=== PATIENT | male | born 2005 | race Caucasian/White ===

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

== ENCOUNTER 2023-02-10 21:18 | Emergency (ER) | payer BC, SELFPAY ==
[2023-02-10 21:23] VITALS: BP 166/103; PULSE 80; RESP 20; TEMP 36.6; O2SAT 98; BMI 52.9
--- NOTE | 2023-02-11 02:46 | ED.GENADULT ---
HPI - General Adult General Date Seen: 02/10/23 Chief complaint: Ear/Nose/Throat Problem Stated complaint: pain in cheek/ear Time Seen by Provider: 02/10/23 21:51 History of Present Illness HPI narrative: This is a pleasant 17-year-old male with a past medical history of hypertension, dyslipidemia, elevated BMI, anxiety, presenting to the ER today with pain involving his left ear and left cheek. Symptoms again yesterday and were fairly mild yesterday but it gotten worse today. He notes pain affecting the left side of his face and radiating to his left ear. It tends to be worse when he chews. He does not really have any toothache or any pain inside of his mouth. No swelling of his gums. No sore throat. No trouble swallowing. No fever. He has had a stuffy nose for the past couple of days. No known jaw injury or dental trauma. No history of TMJ. He does not notice any change in his pain while he is eating or any swelling of his face while he eats. No redness or warmth. No fever. Pain started yesterday but got worse throughout the day today, prompting his visit to the ER tonight. Related Data Previous Rx's Medication Instructions Recorded losartan 50 mg tablet 50 mg PO QDAY #90 tabs 10/22/22 Allergies Allergy/AdvReac Type Severity Reaction Status Date / Time No Known Drug Allergies Allergy Verified 12/10/22 13:13 [facility] Medical History Obesity (11/25/12) ?E66.9 - Obesity, unspecified (ICD-10) HTN (hypertension) ?I10 - Essential (primary) hypertension (ICD-10) Morbid obesity with BMI of 50.0-59.9, adult ?E66.01 - Morbid (severe) obesity due to excess calories (ICD-10) ?Z68.43 - Body mass index [BMI] 50.0-59.9, adult (ICD-10) Other dislocation of left patella, sequela ?S83.095S - Other dislocation of left patella, sequela (ICD-10) 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 ?E16.1 - Other hypoglycemia (ICD-10) Hyperlipidemia (12/18/09) ?E78.5 - Hyperlipidemia, unspecified (ICD-10) Hearing disorder ?H91.90 - Unspecified hearing loss, unspecified ear (ICD-10) Elevated blood pressure reading ?R03.0 - Elevated blood-pressure reading, without diagnosis of hypertension (ICD-10) Surgical History S/P left knee arthroscopy (05/13/22) ?Z98.890 - Other specified postprocedural states (ICD-10) History of bilateral tympanoplasty (2010) ?Z98.890 - Other specified postprocedural states (ICD-10) History of tonsillectomy and adenoidectomy ?Z90.89 - Acquired absence of other organs (ICD-10) Family History Paternal Grandfather Diabetes Social History Narrative: Single, lives with father, works at [employer], no kids Does not smoke Does not drink alcohol, no drug use 10 min daily walks on treadmill /or jogs Emigrated at age 2 from [place]. Did receive BC G vaccine as a child. Last trip to [place] 2020 Smoking Status: Never smoker Second hand tobacco smoke exposure: No How often do you have a drink containing alcohol: never How often do you have six or more drinks on one occasion: Never AUDIT-C Alcohol total score: 0 Non-prescribed substance use: denies use Little interest or pleasure in doing things: not at all Feeling down, depressed, or hopeless: not at all Exam Narrative: Exam Narrative: Constitutional: Appears well-developed and well-nourished. Alert. Conversant. Non toxic. HENT: Head: Atraumatic. No depressed skull fracture, Raccoon Eyes, العراقي's sign, or hemotympanum. Face normal. TMs normal Right ear: Mastoid, pinna, canal are normal. There is some cerumen in the canal but I can see a portion of his TM and it appears normal. Left ear: Mastoid, pinnae, external canal are normal. Canal is occluded by dark brown cerumen. This was removed using an ear curette. I am able to visualize his TM it does appear to be brightly erythematous and bulging. Suspicious for otitis media. Nose: Nose normal. Mouth/Throat: Oral mucosa is clear and moist. no trismus. Pharynx normal. Tonsils symmetric. No tonsillar enlargement, erythema, or exudate. No trismus. No TMJ tenderness. No submandibular swelling. Generally good dentition. He does have a couple of feelings in his left maxillary molars but no evidence for any active dental caries. Gums are normal. No signs of dental infection. Submandibular tissues are soft. No trismus. No parotid swelling. No facial erythema. No palpable buccal space abscess. No signs of facial cellulitis Eyes: Conjunctivae normal. EOM normal. Pupils equal, round, and reactive to light. No scleral icterus. Neck: Normal range of motion. Neck supple. No tracheal deviation present. Cardiovascular: Normal rate, regular rhythm. No gallop. No friction rub. No murmur heard. Musculoskeletal: RUE: Normal range of motion. No tenderness. No deformity LUE: Normal range of motion. No tenderness. No deformity RLE: Normal range of motion. No edema. No tenderness. No deformity LLE: Normal range of motion. No edema. No tenderness. No deformity Lymph: No cervical adenopathy. Neurological: Alert and oriented to person, place, and time. Normal strength. CN II-VII intact. No sensory deficit. GCS eye subscore is 4. GCS verbal subscore is 5. GCS motor subscore is 6. Normal coordination Skin: Skin is warm and dry. No rash noted. No pallor. Normal capillary refill. Psychiatric: Normal mood. Normal affect. Const: Vital Signs, click to edit/add: Vital Signs - 24 hr 02/10/23 21:23 Temperature 97.9 F Pulse Rate [Right Pulse Oximeter] 80 Respiratory Rate 20 Blood Pressure [Ri ght Upper Arm] 166/103 H Pulse Oximetry 98 Oxygen Delivery Me thod Room Air Course Vital Signs Vital signs: Initial Vital Signs Temperature 97.9 F 02/10/23 21:23 Temperature Source Temporal Artery Scan 02/10/23 21:23 Pulse Rate 80 02/10/23 21:23 Respiratory Rate 20 02/10/23 21:23 Blood Pressure 166/103 H 02/10/23 21:23 Blood Pressure Mean 124 H 02/10/23 21:23 Pulse Oximetry 98 02/10/23 21:23 Oxygen Delivery Method Room Air 02/10/23 21:23 Vital Signs Temperature 97.9 F 02/10/23 21:23 Pulse Rate 80 02/10/23 21:23 Respiratory Rate 20 02/10/23 21:23 Blood Pressure 166/103 H 02/10/23 21:23 Pulse Oximetry 98 02/10/23 21:23 Oxygen Delivery Method Room Air 02/10/23 21:23 Temperature 97.9 F 02/10/23 21:23 Pulse Rate 80 02/10/23 21:23 Respiratory Rate 20 02/10/23 21:23 Blood Pressure 166/103 H 02/10/23 21:23 Pulse Oximetry 98 02/10/23 21:23 Oxygen Delivery Method Room Air 02/10/23 21:23 Medical Decision Making MDM Narrative Medical decision making narrative: This patient presents for evaluation of pain involving his left cheek, left jaw, and left ear. Differential is broad including facial cellulitis, dental infection, dental caries, parotitis, Barry's angina, facial cellulitis, trauma, sinusitis, I pathology, as well as ear infection, otitis externa, mastoiditis , among others. After removal of impacted cerumen from his left ear canal, unable to get a good view of his left TM. The patient has an exam consistent with acute otitis media. There is no sign of mastoiditis, meningitis, perforation, mass, dental abscess, or peritonsillar abscess. There is no evidence of otitis externa. No foreign body. The patient will be started on antibiotics and may take Tylenol or Ibuprofen for pain. Return if increasing pain, fever, decrease in hearing, swelling or pain of the mastoid, ear discharge, or severe headache. Follow-up with primary physician in 7-10 days, if symptoms persist. Discharge Plan Discharge Clinical Impression: Otitis media Patient Disposition: Home, Self-Care Condition: Stable Instructions: Ear Infection (ED) Additional Instructions: As we discussed, please use ibuprofen (Advil) 600 mg every 6 hours as needed for pain. You can also use acetaminophen (Tylenol) 1000 mg every 6 hours if needed for pain. Come back to the ER right away if you have worsening pain, high fever, worsening cough, drainage from either ear, swelling in your throat or on your face, or if you have any other concerns. Please take the antibiotics twice a day until they are gone. It usually takes 1-2 days for an ear infection to begin to improve after you start the antibiotics. Prescriptions: No Action losartan 50 mg tablet 50 mg PO QDAY Qty: 90 0RF Hold Instructions: Order Change Follow Up/Referrals: Kristy Dillon MD [Primary Care Provider] - Stand Alone Forms: [employer] Info Instructions
== END 2023-02-10 22:21 | disposition home or self-care (01) ==
LOC: ED 22:15
PROVIDERS: Emergency Provider Emergency Medicine; PCP Family Medicine
DX: H66.92 Otitis media, unspecified, left ear (principal)
CPT/HCPCS: 99283

== ENCOUNTER 2023-05-09 08:11 | Emergency (ER) | payer BC, SELFPAY ==
[2023-05-09 08:15] VITALS: BP 148/93; PULSE 81; RESP 24; TEMP 35.6; O2SAT 99; BMI 43.8
--- NOTE | 2023-05-09 08:21 | CT_ITS ---
Patient: MACHELLE HYMAN Facility:?[facility] Patient ID:?[id number] Site Patient ID:?[id number]. Site :?[id number] Study:?CT-Abdomen/Pelvis W/O-05/09/2023 9:01:37 AM Ordering Physician:SHAE Final Report: INDICATION: LEFT FLANK ,BACK PAIN TECHNIQUE: CT abdomen and pelvis without contrast, stone protocol. COMPARISON: None. FINDINGS: Kidney/ureters: There is a 2.5 mm stone within the proximal left ureter resulting in minimal hydronephrosis. Additional punctate bilateral intrarenal calculi are noted as well. Liver/gallbladder/bile ducts: The liver is normal in size, shape and attenuation. Gallbladder is normal without visualized stones or inflammation. No biliary dilatation. Spleen/pancreas/adrenal glands: The spleen, adrenal glands and pancreas are within normal limits. GI tract: Postop changes of the stomach. No evidence of bowel obstruction. Mild stool burden. Normal appendix. Abdominal wall/omentum/peritoneum: No free air or significant free fluid. No mass or inflammation. Lymph nodes: No lymphadenopathy. Pelvis: Unremarkable pelvis. Lower chest: Unremarkable. IMPRESSION: There is a 2.5 mm stone within the proximal left ureter resulting in minimal hydronephrosis. Additional punctate bilateral intrarenal calculi are noted as well. Please note that all CT scans at this facility use dose modulation, iterative reconstruction, and/or weight-based dosing when appropriate to reduce radiation dose to as low as reasonably achievable. Dictated by Daljit Carbajal MD @ 05/09/2023 9:25:14 AM Signed by:?Daljit Carbajal MD @05/09/2023 9:25:14 AM (Electronic Signature)
[2023-05-09] MEDS: ONDANSETRON 2 MG/ML inj 4 MG IVP (08:30)
--- NOTE | 2023-05-09 08:38 | ED_ITS ---
HPI - General Adult General Date Seen: 05/09/23 Chief complaint: Back Injury/Pain Stated complaint: Lower back pain Time Seen by Provider: 05/09/23 08:18 Source: patient, RN notes reviewed and old records reviewed Mode of arrival: ambulatory Limitations: no limitations History of Present Illness HPI narrative: Patient is a 17-year-old with pertinent past medical history of gastric bypass a t [facility] in February of this year. He says he was at work, he works at [employer], he says he was just sitting when he developed sudden onset of pain in his left mid lumbar region. He says he stood up and tried to walk it off but it got progressively worse to the point that he felt significantly nauseated. Pain is somewhat worse with movement but he says it is constant no matter what he does. He has never had pain like this. He denies urinary symptoms, vomiting, diarrhea, black or bloody stools. He does not smoke, denies significant alcohol use. Other health history reviewed. 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) ?Z22.7 - Latent tuberculosis (ICD-10) Positive QuantiFERON-TB Gold test ?R76.12 - Nonspecific reaction to cell mediated immunity measurement of gamma interferon antigen response without active tuberculosis (ICD-10) HTN (hypertension) ?I10 - Essential (primary) hypertension (ICD-10) Morbid obesity with BMI of 50.0-59.9, adult ?E66.01 - Morbid (severe) obesity due to excess calories (ICD-10) ?Z68.43 - Body mass index [BMI] 50.0-59.9, adult (ICD-10) Other dislocation of left patella, sequela ?S83.095S - Other dislocation of left patella, sequela (ICD-10) 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 ?E16.1 - Other hypoglycemia (ICD-10) Hyperlipidemia (12/18/09) ?E78.5 - Hyperlipidemia, unspecified (ICD-10) Hearing disorder ?H91.90 - Unspecified hearing loss, unspecified ear (ICD-10) Elevated blood pressure reading ?R03.0 - Elevated blood-pressure reading, without diagnosis of hypertension (ICD-10) Surgical History H/O bariatric surgery ?Z98.84 - Bariatric surgery status (ICD-10) S/P left knee arthroscopy (05/13/22) ?Z98.890 - Other specified postprocedural states (ICD-10) History of bilateral tympanoplasty (2010) ?Z98.890 - Other specified postprocedural states (ICD-10) History of tonsillectomy and adenoidectomy ?Z90.89 - Acquired absence of other organs (ICD-10) Family History Paternal Grandfather Diabetes Social History Narrative: Single, lives with father, works at [employer], no kids Does not smoke Does not drink alcohol, no drug use exercise daily 60-120 min , has lost 25 lb Emigrated at age 2 from [place]. Did receive BC G vaccine as a child. Last trip to [place] 2020 Smoking Status: Never smoker Second hand tobacco smoke exposure: No How often do you have a drink containing alcohol: never How often do you have six or more drinks on one occasion: Never AUDIT-C Alcohol total score: 0 Non-prescribed substance use: denies use Little interest or pleasure in doing things: not at all Feeling down, depressed, or hopeless: not at all Exam Narrative: Exam Narrative: Vital signs as noted above. In general, an alert, nontoxic young man, he looks somewhat pale and looks uncomfortable. Head: Normocephalic, atraumatic. Eyes: Pupils are equal reactive. Extraocular movements are full. Conjunctivae are normal. ENT: Mucous membranes are moist. Neck: Supple without lymphadenopathy. Heart: Regular rate and rhythm. No murmur or rub. Lungs: Clear bilaterally. No increased work of breathing, crackles or wheezes. Abdomen: Soft and nontender. No CVA tenderness. Back: He does have some tenderness throughout the left side of his back in the musculature. Range of motion is full. He notes that it is somewhat painful to move his back, but it does not seem to inhibit movement at all. Extremities: Well perfused. No edema. No calf tenderness. Pulses intact. Neurologic: Patient is alert and oriented to person and place. Speech is fluent. Face is symmetric. Moves all extremities equally. Affect: Normal. Skin: Warm and dry. Well perfused. Const: Vital Signs, click to edit/add: Vital Signs - 24 hr 05/09/23 08:15 05/09/23 09:20 05/09/23 09:24 Temperature 96.0 F L Pulse Rate [Pulse Oximeter] 81 71 Respiratory Rate 24 Blood Pressure [Ri ght Upper Arm] 148/93 H 132/100 H Pulse Oximetry 99 94 95 Oxygen Delivery Me thod Room Air Room Air Documenting provider has reviewed patient's vital signs: yes Course Course ED Course: Patient presents with sudden onset of left-sided back pain, he looks uncomfortable, pain is not clearly musculoskeletal although that is a consideration. Other diagnostic considerations include kidney stone, less likely complications related to his gastric bypass such as perforated viscus, gastritis, peptic ulcer disease, obstruction, etcetera. UTI or pyelonephritis felt to be somewhat unlikely given the abrupt onset of symptoms. Will check labs, CT scan without contrast, UA. Toradol, single does I think is reasonable as well as Zofran. Labs are reassuring. White blood cell count is 9.8, normal diff. Normal hemoglobin. Metabolic panel is notable for potassium of 2.9, renal function normal, other electrolytes normal. Lactate is normal 1.9, CRP minimally elevated at 1.8. CT scan by my review shows a tiny stone in the left ureter, no significant hydronephrosis, no perinephric stranding. He has a couple of small stones seen in bilateral kidneys as well. Final radiology read as follows:FINDINGS: Kidney/ureters: There is a 2.5 mm stone within the proximal left ureter resulting in minimal hydronephrosis. Additional punctate bilateral intrarenal calculi are noted as well. Liver/gallbladder/bile ducts: The liver is normal in size, shape and attenuation. Gallbladder is normal without visualized stones or inflammation. No biliary dilatation. Spleen/pancreas/adrenal glands: The spleen, adrenal glands and pancreas are within normal limits. GI tract: Postop changes of the stomach. No evidence of bowel obstruction. Mild stool burden. Normal appendix. Abdominal wall/omentum/peritoneum: No free air or significant free fluid. No mass or inflammation. Lymph nodes: No lymphadenopathy. Pelvis: Unremarkable pelvis. Lower chest: Unremarkable. IMPRESSION: There is a 2.5 mm stone within the proximal left ureter resulting in minimal hydronephrosis. Additional punctate bilateral intrarenal calculi are noted as well. He did have some vomiting while here, did not want anything else for nausea after the Zofran. He says he is not nauseated at this time. He was able to drink Powerade without vomiting, but said he was not able to drink any potassium nor take potassium pills. He is not on any outpatient medications which would contribute to hypokalemia. I suspect this is related to his gastric bypass. He is not having diarrhea. I will put him on potassium replacement at home, he should see his regular clinic this week for recheck. UA shows 50-100 red cells, 0-2 white blood cells. I do not see indication for antibiotics. Vital Signs Vital signs: Initial Vital Signs Temperature 96.0 F L 05/09/23 08:15 Temperature Source Temporal Artery Scan 05/09/23 08:15 Pulse Rate 81 05/09/23 08:15 Respiratory Rate 24 05/09/23 08:15 Blood Pressure 148/93 H 05/09/23 08:15 Blood Pressure Mean 111 H 05/09/23 08:15 Blood Pressure Position Standing 05/09/23 08:15 Pulse Oximetry 99 05/09/23 08:15 Oxygen Delivery Method Room Air 05/09/23 08:15 Vital Signs Temperature 96.0 F L 05/09/23 08:15 Pulse Rate 81 05/09/23 08:15 Respiratory Rate 24 05/09/23 08:15 Blood Pressure 148/93 H 05/09/23 08:15 Pulse Oximetry 99 05/09/23 08:15 Oxygen Delivery Method Room Air 05/09/23 08:15 Temperature 96.0 F L 05/09/23 08:15 Pulse Rate 71 05/09/23 09:24 Respiratory Rate 24 05/09/23 08:15 Blood Pressure 132/100 H 05/09/23 09:24 Pulse Oximetry 95 05/09/23 09:24 Oxygen Delivery Method Room Air 05/09/23 09:24 Medications Administered Medications: Discontinued Medications Generic Name Dose Route Start Last Admin Trade Name Anegla PRN Reason Stop Dose Admin Sodium Chloride 1,000 mls @ 1,000 mls/hr 05/09/23 08:30 05/09/23 09:24 0.9 % Sodium Chloride 1000 Ml IV 05/09/23 09:29 Infused .Q1H MAEVE Infusion Ketorolac Tromethamine 15 mg 05/09/23 08:21 05/09/23 08:45 Ketorolac 15 Mg/Ml Inj IVP 05/09/23 08:22 15 mg ONCE ONE Administration Metoclopramide HCl 10 mg 05/09/23 09:45 05/09/23 09:44 Metoclopramide Hcl 5 Mg/Ml Inj IV 05/09/23 09:46 Not Given ONCE ONE Morphine Sulfate 4 mg 05/09/23 09:15 05/09/23 09:20 Morphine 4 Mg/Ml Inj IVP 05/09/23 09:16 4 mg ONCE ONE Administration Ondansetron HCl 4 mg 05/09/23 08:21 05/09/23 08:30 Ondansetron 2 Mg/Ml Inj IVP 05/09/23 08:22 4 mg ONCE ONE Administration Potassium Bicarbonate 50 meq 05/09/23 09:28 05/09/23 10:52 Potassium Bicarb 25 Meq Effervescent Tab PO 05/09/23 09:29 Not Given ONCE ONE Potassium Chloride 40 meq 05/09/23 10:07 05/09/23 10:53 Potassium Chloride 10 Meq Capsule Er PO 05/09/23 10:08 40 meq ONCE ONE Administration Medical Decision Making Lab Data Labs: Lab Results 05/09/23 05/09/23 Range/Units 08:30 13:30 WBC 9.81 (4.50-11.00) K/uL RBC 4.87 (4.30-5.90) m/uL Hgb 14.7 (13.5-17.5) gm/dL Hct 43.6 (37.0-53.0) % MCV 90 (80-100) fL MCH 30 (26-34) pg MCHC 34 (32-36) gm/dL RDW Coeff of [place] 15.4 (11.5-15.5) % Plt Count 330 (140-440) K/uL Neut % (Auto) 55.5 (42.0-72.0) % Lymph % (Auto) 36.7 (20-44) % [place] % (Auto) 5.0 (0.0-11.0) % Eos % (Auto) 2.3 (0.0-7.0) % Baso % (Auto) 0.3 (0.0-3.0) % Neut # (Auto) 5.44 (1.7-7.0) K/uL Lymph # (Auto) 3.60 H (0.90-2.90) K/uL [place] # (Auto) 0.50 (0.00-0.90) K/UL Eos # (Auto) 0.23 (0.00-0.50) K/uL Baso # (Auto) 0.03 (0.00-0.30) K/uL Abs Immat Gran (auto) 0.02 (0.00-0.30) K/uL Imm/Tot Granulo (auto) 0.2 % Sodium 141 (135-149) mmol/L Potassium 2.9 L* (3.6-5.1) mmol/L Chloride 105 (96-114) mmol/L Carbon Dioxide 26 (20-32) mmol/L Anion Gap 10 (7-15) mEq/L BUN 10 (5-24) mg/dL Creatinine 0.6 (0.6-1.2) mg/dL Estimated Creat Clear 191.58 Estimated GFR 143 ml/min Glucose 111 (60-115) mg/dL Lactate 1.9 (0.5-1.9) mmol/L Calcium 9.4 (8.7-10.8) mg/dL C-Reactive Protein 1.8 H (0.5-1.0) mg/dL Urine Color Brown A (Yellow) Urine Appearance Cloudy A (Clear) Urine pH 7.0 (5.0-8.5) Ur Specific [place] 1.025 (1.000-1.030) Urine Protein 1+ A (Negative) Urine Glucose (UA) Negative (Negative) Urine Ketones 4+ A (Negative) Urine Blood 3+ A (Negative) Urine Nitrite Negative (Negative) Urine Bilirubin 2+ A (Negative) Urine Urobilinogen 1.0 (0.2-1.0) Ur Leukocyte Esterase Negative (Negative) Urine RBC 50-100 A (0-2) Urine WBC 0-2 (0-5) Ur Squamous Epith Cells Few (None-Few) Urine Bacteria Few A (None) Urine Mucus Few A (None) Discharge Plan Discharge Clinical Impression: Left ureteral stone, Hypokalemia Patient Disposition: Home, Self-Care Condition: Improved Instructions: Hypokalemia (ED), Ureteral Stones (ED) Additional Instructions: Push fluids, strain urine. Tylenol 1000 mg 3 times daily. Oxycodone if needed for uncontrolled pain. Zofran if needed for nausea. Your stone is less than 3 mm, I would expect this to pass without difficulty. However, if your pain does not improve over the next week and you do not see a stone in your urine, would recommend urology follow-up. [phone] if you need to schedule. Your potassium is low today, I am going to start you on potassium replacement at home. Please follow-up this coming week with your primary clinic for recheck of your potassium. Return at any time for severe uncontrolled pain, new symptoms such as fever, uncontrolled vomiting etcetera. Prescriptions: New potassium chloride [Klor-Con M20] 20 mEq tablet,ER particles/crystals 20 meq PO DAILY Qty: 14 2RF Follow Up/Referrals: Kristy Dillon MD [Primary Care Provider] - Stand Alone Forms: [place] Info Instructions
[2023-05-09 08:41] LABS: Lactate Sepsis w/Reflex* 1.9 mmol/L (0.5-1.9)
[2023-05-09 08:42] LABS: Basophils Absolute Auto 0.03 K/uL (0.00-0.30); Basophils Percent Auto 0.3 % (0.0-3.0); Eosinophils Absolute Auto 0.23 K/uL (0.00-0.50); Eosinophils Percent Auto 2.3 % (0.0-7.0); Hematocrit 43.6 % (37.0-53.0); Hemoglobin* 14.7 gm/dL (13.5-17.5); Immature Granulocytes Abs Auto 0.02 K/uL (0.00-0.30); Immature Granulocytes Pct Auto 0.2 %; Lymphocytes Percent Auto 36.7 % (20-44); Mean Corpuscular HGB Conc 34 gm/dL (32-36); Mean Corpuscular Hemoglobin 30 pg (26-34); Mean Corpuscular Volume 90 fL (80-100); Neutrophils Absolute Auto 5.44 K/uL (1.7-7.0); Neutrophils Percent Auto 55.5 % (42.0-72.0); Platelet Count* 330 K/uL (140-440); RDW Coefficient of Variation % 15.4 % (11.5-15.5); Red Blood Count 4.87 m/uL (4.30-5.90); White Blood Count* 9.81 K/uL (4.50-11.00)
[2023-05-09 08:45] LABS: Slide Review Reflex No
[2023-05-09] MEDS: KETOROLAC 15 MG/ML inj IVP (08:45)
[2023-05-09] MEDS: 0.9 % SODIUM CHLORIDE 1000 ml 1,000 ML IV (08:45)
[2023-05-09 09:01] LABS: Chloride* 105 mmol/L (96-114)
[2023-05-09 09:02] LABS: Sodium* 141 mmol/L (135-149)
[2023-05-09 09:04] LABS: Creatinine* 0.6 mg/dL (0.6-1.2); Est. Creatinine Clearance* 191.58; Estimated Glomerular Filt Rate 143 ml/min
[2023-05-09 09:05] LABS: Anion Gap 10 mEq/L (7-15); Blood Urea Nitrogen* 10 mg/dL (5-24); Calcium* 9.4 mg/dL (8.7-10.8); Carbon Dioxide* 26 mmol/L (20-32); Glucose* 111 mg/dL (60-115)
[2023-05-09 09:08] LABS: C Reactive Protein* 1.8 mg/dL (0.5-1.0)
[2023-05-09 09:09] LABS: Potassium* 2.9 mmol/L (3.6-5.1)
[2023-05-09 09:20] VITALS: O2SAT 94
[2023-05-09] MEDS: MORPHINE 4 MG/ML INJ IVP (09:20)
[2023-05-09 09:24] VITALS: BP 132/100; PULSE 71; O2SAT 95
[2023-05-09] MEDS: POTASSIUM CHLORIDE 10 MEQ CAPSULE ER 40 MEQ PO (10:53)
[2023-05-09 13:41] LABS: Appearance Urine Cloudy (Clear); Bilirubin Urine 2+ (Negative); Blood Urine 3+ (Negative); Color Urine Brown (Yellow); Glucose Urine Negative (Negative); Ketones Urine 4+ (Negative); Leukocyte Esterase Urine Negative (Negative); Nitrite Urine Negative (Negative); Protein Urine 1+ (Negative); Specific Gravity Urine 1.025 (1.000-1.030)
[2023-05-09 13:59] LABS: Bacteria Urine Few; Mucus Urine Few; RBC Urine 50-100 (0-2); Squamous Epithelial Cell Urine Few (None-Few); WBC Urine 0-2 (0-5)
== END 2023-05-09 13:59 | disposition home or self-care (01) ==
PROVIDERS: Emergency Provider Emergency Medicine; PCP Family Medicine
DX: N20.1 Calculus of ureter (principal); E87.6 Hypokalemia
CPT/HCPCS: 36415; 74176; 80048; 81001; 83605; 85025; 86140; 87086; 94761; 96374; 96375; 99284; A9270; J1885; J2270; J2405; J7030

== ENCOUNTER 2023-06-07 09:00 | Outpatient (RCR) | payer BC, SELFPAY ==
--- NOTE | 2023-04-20 12:28 | PT.OPEX ---
PT [place] Out[facility] Eval PT [facility] Outpatient Eval Start: 04/20/23 07:16 Freq: Status: Active Protocol: Document 04/20/23 07:16 SHELBY (Rec: 04/20/23 12:28 [facility]LY [facility], [facility] [id number]) E-signed By Karen Grant PT Physical Therapy Outpatient Evaluation Insurance Information Medical Diagnosis LEFT KNEE MCL SPRAIN S83.412A Treating Diagnosis LEFT KNEE INSTABILITY M25.362 LEFT KNEE PAIN M25.562 Referring MD MARCELINO Subjective Date of Last Physician Visit 04/06/23 Date of Surgery (If applicable) 05/13/22 Preferred Name MACHELLE Objective Other/Pertinent Objective GAIT/FUNCTIONAL MOBILITY Single leg stance: R 22SEC/ L18 SEC W/INCREASED EFFORT Squat: LIMITED BY LEFT KNEE PAIN KNEE ROM R-4-0-132 L -5-0-130 HIP ROM: WFL LLE MMT: Hip flexion: R 5/5 L 5/5 Hip abduction: R 4+/5 L 4/5 Hip extension: R 4+/5 L 4+/5 Knee flexion: R 5/5 L 4+/5 Knee extension: R 5/5 L 4+/5 SPECIAL TEST Anterior drawer: (-) Scott test: (-) Posterior Drawer: (-) Valgus Test: (+) Varus Test: (-) Joint line tenderness: MEDIAL JOINT LINE Chelsea test: (-) Quijano Compression: (-) Hip quadrant test: (-) TX: QS X 15 SLR X 10 LLR X 10 ALR X 10 BRIDGE X 10 STDG HR X 15 MINISQUAT X10 MINI SQUAT X 10 Assessment Assessment/Impression PATIENT IS A [address] MARCELINO HERE TO EVAL AND TREAT LEFT MCL SPRAIN; PMHX INCLUDES BUT NOT LIMITED MCL REPAIR WITH INTERNAL BRACE , MORBID OBESITY, H/O BARIATRIC SURGERY W/RECENT WEIGHT LOSS OF 45#, HTN, HLD, HTN, HYPOGLYCEMIA D/T ENDOGENOUS HYPERINSULINEMIA, HEARING IMPAIRMENT, RECENT H/O LBP/STRAIN (11/2022), SLEEP APNEA. HE RECENTLY RETURNED TO [place] BUT EXPERIENCED MEDIAL KNEE PAIN. XRAYS REVEAL CALCIFICATION AND WILL PLAN TO PERFORM A REPEAT MRI IF NEEDED. THROUGH THE ASSESSMENT TODAY, HE DEMONSTRATE NORMAL ROM -5-0-130 IN SUPINE, NORMAL PATELLAR MOBILITY BUT WITH DISCOMFORT MEDIALLY DURING LATERAL GLIDE, TTT ALONG MEDIAL JOINT LINE TO VMO, GRADE 2 MCL SPRAIN/LAXITY, AND MIN JOINT LINE EDEMA R45.5, L47CM. ADDITIONALLY, HE DEMONSTRATES GOOD QUAD ACTIVATION BUT NOTABLE DIFFERENCE MEDIALLY AT MEDIAL VASTUS AND VMO COMPARED TO RIGHT ALSO FAIR SUSTAINABILITY OF THE CONTRACTION DURING A SLR WITH QUAD LAG NOTED. HE HAS EQUAL BALANCE LEFT TO RIGHT WITH MORE EFFORT TO MAINTAIN BALANCE ON LEFT. HE IS APPROPRIATE FOR SKILLED PHYSICAL THERAPY TO ADDRESS NEUROMUSCULAR RE-EDUCATION TO ASSIST WITH MEDIAL DYNAMIC STABILITY, RESTORE FUNCTION, STABILITY, AND STRENGTH TO THE MCL THROUGH THERAPEUTIC EXERCISE AND TARGETED STRENGTHENING FOR SAFE RETURN TO SPORT/GYM. PATIENT PROVIDED AN INITIAL HEP AND AGREEABLE TO POC AND FREQ. SHOULD HE CONTINUED TO EXPERIENCE DYSFUNCTIONAL LAXITY, HE WILL RETURN TO ORTHO AND /OR CONSIDER A FUNCTIONAL BRACE FOR EVERYDAY USE. Primary Functional Limitations SPORTS SPECIFIC DEFICITS FOR SOCCER: RUNNING, STRIKING BALL , CUTTING SQUATTING STAIRS Plan of Care Rehabilitation Potential Good Physical Therapy Goals 1. PATIENT WILL DEMONSTRATE 20 SLR W/O QUAD LAG IN 4 WEEKS 2. PATIENT WILL DEMONSTRATE IMPROVED BALANCE BY IMPROVING HIS SLS FROM 15 TO 30 SEC ON FIRM SURFACE AND 0 TO 30 SEC ON FOAM SURFACE. IN 6-8 WEEKS 3. PATIENT WILL DEMONSTRATE INDEPENDENCE WITH HIS HEP AND TRANSITION TO SOLELY WORKING OUT AT [facility] [employer] IN 8-12 WEEKS 4. PATIENT WILL RETURN SAFELY TO JO[place]ING ON THE TREADMILL FOR 20MIN W/O INSTABILITY OR PAIN. IN 8-12 WEEKS Coordination/Communication With Referral Source Treatment Plan/Direct Interventions Gait Training,Ice/Cold/ Vasopneumatic,Manual Therapy, Neuromuscular Re-ed,Self-Care/ Home Management,Therapeutic Activities,Therapeutic Exercises Frequency/Duration 1 WEEK 12 Patient Will Be Discharged From Therapy Completion of LTG(s), Independently Progressing Evaluation Billing Untimed Code Treatment Minutes 15 PT Eval No Charge No Complexity Moderate Certification Information Initial Certification Date 04/20/23 Ending Certification Date 07/18/23 Provider Signature Shows Agreement With POC & Medical Necessity Physician Signature & Date Requested Please Sign/Date Here Physician Comment/Change : Physician NPI Number #
== END 2023-10-05 23:59 | disposition home or self-care (01) ==
PROVIDERS: PCP Family Medicine; Visit Provider Orthopaedic Surgery Sports Medicine
DX: S83.412A Sprain of medial collateral ligament of left knee, initial encounter (principal); M25.362 Other instability, left knee; M25.562 Pain in left knee; E66.9 Obesity, unspecified; Z51.89 Encounter for other specified aftercare
CPT/HCPCS: 97110; 97112; 97162

== ENCOUNTER 2023-06-08 13:33 | Outpatient (CLI) | payer BC, SELFPAY ==
--- OUTSIDE RECORDS SUMMARY | 2023-06-08 13:35 | XMS_ITS | Encounter Summary ---
Author Name Unknown Organization [facility] Address [address] [place] [address] Care Team Providers Care Production Control Specialist Name Role Phone None Reported, Pcp Primary Care Provider Unavail able Encounter Details Date Type Department Care Team (Latest Contact Info) Description 04/19/2023 7:10 AM GIS TECHNICIAN - 04/19/2023 11:59 PM [facility] Hospital Encounter Department of Laboratory Medicine and Pathology, [facility] in [place], [place] [address] [place] [phone] Brandon Mendiola APRN, C.N.P., D.N.P. [address] [place] [phone] Gastric Bypass Status Post Discharge Disposition: Home or Self Care Social History Tobacco Use Types Packs/Day Years Used Date Smoking Tobacco: Never Smokeless Tobacco: Never Alcohol Use Standard Drinks/Week Comments Never 0 (1 standard drink = 0.6 oz pur e alcohol) [facility] Utilities Answer Date Recorded In the past 12 months has e [employer], gas, oil, or water [employer] threatened to shut off services in your home? No 03/03/2023 Humiliation, Afraid, Rape, and Kick questionnair e Answer Date Recorded Within the last year, have y ou been afraid of your partner or ex-partner? No 03/03/2023 Within the last year, have y ou been humiliated or emotionally abused in other ways by your partner or ex-partner? No Within the last year, have y ou been kicked, hit, slapped, or otherwise physically hurt by your partner or ex-partner? No 03/03/2023 Within the last year, have y ou been raped or forced to have any kind of sexual activity by your partner or ex-partner? No 03/03/2023 Overall Financial Resource Strain (CARDIA) Answe r Date Recorded How hard is it for you to pa y for the very basics like food, housing, medical care, and heating? Not very hard 09/23/2022 PHQ-2 Answer Date Recorded PHQ-2 Score 0 09/28/2022 Exercise Vital Sign Answer Date Recorde d On average, how many days pe r week do you engage in moderate to strenuous exercise (like a brisk walk)? 1 day 09/11/2022 On average, how many minutes do you engage in exercise at this level? 10 min 09/11/2022 Hunger Vital Sign Answer Date Recorded Within the past 12 months, y ou worried that your food would run out before you got the money to buy more. Never true 03/03/19 24 Within the past 12 months, t he food you bought just didn't last and you didn't have money to get more. Never true 03/03/2023 PRAPARE - Transportation Answer Date Re corded In the past 12 months, has l ack of transportation kept you from medical appointments or from getting medications? No 02/22 In the past 12 months, has l ack of transportation kept you from meetings, work, or from getting things needed for daily living? No 03/03/2023 Depression Answer Date Recor ded PHQ-9 Total Score (max 27) 6 09/28 Nutrition Answer Date Recorded Nutrition: EVOO Fat Source Unknown 09/11 On average, how many serving s of fruits and vegetables do you eat per day (serving size is equal to 1 cup or approximately the size of a tennis ball)? 0-2 09/11/2022 Dental Answer Date Recorded Dental: Regular Dentist No 09/12/19 23 Employment Answer Date Recorded Employment status Employed and actively working without restrictions 09/11/2022 Housing Stability Answer Date Recorded What is your living situation today? I have a [facility] place to live 03/03/2023 Sex and Gender Information Value Date Recorded Sex Assigned at Male 09/11/2022 7:49 AM CDT Gender Identity Male 09/11/2022 7:49 AM CDT Sexual Orientation Straight 09/11/2022 7: 49 AM CDT documented as of this encounter Medications at Time of Discharge Medication Sig Dispensed Refills Start Date End Date acetaminophen (TYLENOL) 500 mg tablet Take 2 tablets (1,000 mg total) by mouth every 6 (six) hours as needed for pain or fever. 03/04/2023 calcium carbonate (TUMS) 500 mg (200 mg calcium) chewable tablet Chew 2 tablets (400 mg of calcium total) 2 (two) times a day. 03/04/2023 cholecalciferol (Vitamin D3) 50 mcg (2,000 Unit) tablet Take 1 tablet (50 mcg total) by mouth daily. 03/04/2023 cyanocobalamin (VITAMIN B12) 1,000 mcg/mL injection Inject 1 mL (1,000 mcg total) under the skin every 30 (thirty) days. 3 mL 3 04/03/2023 pantoprazole (PROTONIX) 40 mg EC tablet Take 1 tablet (40 mg total) by mouth every morning before breakfast. For life after bariatric surgery 90 tablet 3 03/25/2023 pediatric qgmvnuvsluqf-kmzl-pab erals (FLINTSTONES COMPLETE) chewable tablet Chew 1 tablet 2 (two) times a day. 03/04/2023 SQ 3 ml Injection Kit Use as directed to inject prescribed medication. 1 each 03/04/2023 ursodioL (ACTIGALL) 300 mg capsule Take 1 capsule (300 mg total) by mouth 2 (two) times a day. 180 capsule 1 03/25/2023 09/21/2023 documented as of this encounter Plan of Treatment Upcoming Encounters Date Type Department Care Team (Late st Contact Info) Description 06/11/2023 8:00 AM CDT Telemedicine Department of Nutrition and Diabetes Education in [place], [place] 200 [place] [phone] Brandon Mendiola APRN, C.N.P., D.N.P. 200 [place] [phone] Scheduled Orders Name Type Priority Associated Diagnoses Orde r Schedule Lipid Panel Lab Routine Gastric Bypass Status Post Once for 1 Occurrences starting 04/19/2023 until 04/19/2023 Hemoglobin A1c Lab Routine Gastric Bypass Status Post Once for 1 Occurrences starting 04/19/2023 until 04/19/2023 Glucose, Fasting Lab Routine Gastric Bypass Status Post Once for 1 Occurrences starting 04/19/2023 until 04/19/2023 CBC without Differential Lab Routine Gastric Bypass Status Post Once for 1 Occurrences starting 04/19/2023 until 04/19/2023 documented as of this encounter Visit Diagnoses Diagnosis Gastric Bypass Status Post documented in this encounter Additional Health Concerns Assessment Noted Time PHQ-9 Depression Total Score: 6 09/29/19 23 11:41 AM CDT documented as of this encounter Care Teams Production Control Specialist Relationship Specialty Start Date End Date None Reported, Pcp PCP - General Family Medicine 04/03/23 documented as of this encounter
--- OUTSIDE RECORDS SUMMARY | 2023-06-08 13:35 | XMS_ITS ---
Author Name Unknown Organization [facility] Address [address] [place] [address] Care Team Providers Care Tight Barrel Inspector Name Role Phone Unavailable Unavailable Unavailable Surgery Details Not on file Complications Check Surgery Details section. Procedure Estimated Blood Loss Check Surgery Details section. Procedure Findings Check Surgery Details section. Procedure Specimens Taken Check Surgery Details section.
--- OUTSIDE RECORDS SUMMARY | 2023-06-08 13:35 | XMS_ITS | Encounter Summary ---
Author Name Unknown Organization [facility] Address [address] [place] [address] Care Team Providers Care [employer] Software Developer Name Role Phone None Reported, Pcp Primary Care Provider Unavail able Reason for Visit * Reason Onset Date Comments Follow-up Orders 04/12/2023 Encounter Details Date Type Department Care Team (Latest Contact Info) Description 04/12/2023 Clinical Communication Division of Endocrinology in [place], [place] [address] [place] [phone] Bradnon Mendiola APRN, C.N.P., D.N.P. [address] [place] [phone] Follow-up Orders Social History Tobacco Use Types Packs/Day Years Used Date Smoking Tobacco: Never Smokeless Tobacco: Never Alcohol Use Standard Drinks/Week Comments Never 0 (1 standard drink = 0.6 oz pur e alcohol) [facility] Utilities Answer Date Recorded In the past 12 months has [employer], gas, oil, or water [employer] threatened to shut off services in your [...] your living situation today? I have a [facility] place to live 03/03/2023 Sex and Gender Information Value Date Recorded Sex Assigned at Male 09/11/2022 7:49 AM CDT Gender Identity Male 09/11/2022 7:49 AM CDT Sexual Orientation Straight 09/11/2022 7: 49 AM CDT documented as of this encounter Plan of Treatment Upcoming Encounters Date Type Department Care Team (Late st Contact Info) Description 06/11/2023 8:00 AM CDT Telemedicine Department of Nutrition and Diabetes Education in [place], [place] [address] [place] [phone] Brandon Mendiola APRN, C.N.P., D.N.P. [address] [place] [phone] documented as of this encounter Visit Diagnoses Not on filedocumented in this encounter Additional Health Concerns Assessment Noted Time PHQ-9 Depression Total Score: 6 09/29/19 23 11:41 AM CDT documented as of this encounter Care Teams [employer] Software Developer Relationship Specialty Start Date End Date None Reported, Pcp PCP - General Family Medicine 04/03/23 documented as of this encounter
--- OUTSIDE RECORDS SUMMARY | 2023-06-08 13:35 | XMS_ITS | Clinical Summary ---
Author Name Unknown Organization [facility] Address [address] [place] [address] Care Team Providers Care Spin Table Operator Name Role Phone None Reported, Pcp Primary Care Provider Unavail able Source Comments Patient records contain information from all sites at [facility]. For routine questions regarding patient records, call [phone] during business hours, M-F 8:00 AM - 5:00 PM Central Time. Record requests for emergency care only can be directed to [phone] at any time.[facility] Allergies No known active allergies Medications Medication Sig Dispensed Refills Start Date End Date Status acetaminophen (TYLENOL) 500 mg tablet Take 2 tablets (1,000 mg total) by mouth every 6 (six) hours as needed for pain or fever. 03/04/2023 Active cyanocobalamin (VITAMIN B12) 1,000 mcg/mL injection Inject 1 mL (1,000 mcg total) under the skin every 30 (thirty) days. 3 mL 3 04/03/2023 Active calcium carbonate (TUMS) 500 mg (200 mg calcium) chewable tablet Chew 2 tablets (400 mg of calcium total) 2 (two) times a day. 03/04/2023 Active cholecalciferol (Vitamin D3) 50 mcg (2,000 Unit) tablet Take 1 tablet (50 mcg total) by mouth daily. 03/04/2023 Active pediatric multivitamin-iron -minerals (FLINTSTONES COMPLETE) chewable tablet Chew 1 tablet 2 (two) times a day. 03/04/2023 Active SQ 3 ml Injection Kit Use as directed to inject prescribed medication. 1 each 03/04/2023 Active pantoprazole (PROTONIX) 40 mg EC tablet Take 1 tablet (40 mg total) by mouth every morning before breakfast. For life after bariatric surgery 90 tablet 3 03/25/2023 Active ursodioL (ACTIGALL) 300 mg capsule Take 1 capsule (300 mg total) by mouth 2 (two) times a day. 180 capsule 1 03/25/2023 09/21/2023 Active Active Problems Problem Noted Date Diagnosed Date Gastrectomy Partial Status Post 03/25/2023 Morbid Obesity Body Mass Index 45.0-49.9 Adult 0 03/04/2023 Surgery Bariatric Status Post 03/04/2023 Hypertension Essential Primary 09/11/2022 Obstructive Sleep Apnea Adult 09/11/2022 Tuberculosis Latent 09/11/2022 Encounters Date Type Department Care Team Description 04/19/2023 7:10 AM EXECUTIVE STAFF ASSISTANT - 04/19/2023 11:59 PM [facility] Hospital Encounter Department of Laboratory Medicine and Pathology, [facility] in [place], [place] [address] [place] [phone] Brandon Mendiola APRN, C.N.P., D.N.P. Gastric Bypass Status Post Discharge Disposition: Home or Self Care 04/12/2023 Clinical Communication Division of Endocrinology in [place], [place] [address] [place] [phone] Brandon Mendiola APRN, C.N.P., D.N.P. Follow-up Orders 04/07/2023 2:30 PM [facility] Comprehensive Visit Center for Sleep Medicine in [place], [place] [address] [place] [phone] Randal Campoverde APRN, C.N.P., M.S.N. Body Mass Index 50.0 To 59.9 Adult ([facility]) 04/03/2023 3:23 PM EXECUTIVE STAFF ASSISTANT - 04/03/2023 8:19 PM EXECUTIVE STAFF ASSISTANT Emergency [facility] Emergency Department [address] [place] [phone] John Seth P.A.-C. Abdominal Pain (Primary Dx) Discharge Disposition: Home or Self Care 03/26/2023 1:00 PM [facility] Telemedicine Department of Nutrition and Diabetes Education in [place], [place] [address] [place] [phone] Dai Xiong P.A.-C., M.S. Alexa Álvarez RDN, LD Gastrectomy Partial Status Post (Primary Dx) 03/25/2023 2:00 PM EXECUTIVE STAFF ASSISTANT Office Visit Division of Metabolic and Abdominal Wall Reconstructive Surgery in [place], [place] [address] [place] [address] Ramona Gonzalez APRN C.N.PMiguel, D.N.P. Gastrectomy Partial Status Post (Primary Dx); Follow Up Examination Postoperative Visit 03/23/2023 Clinical Communication Division of Endocrinology in [place], [place] [address] [place] [phone] Brandon Mendiola APRN, C.N.P., D.N.P. Pre-visit Testing Orders 03/12/2023 Clinical Communication Division of Metabolic and Abdominal Wall Reconstructive Surgery in [place], [place] [address] [place] [phone] Zeus Santana M.D. Post-op Follow-up from Last 3 Months Family History Medical History Relation Name Comments Arthritis Father Mac Diabetes Father Mac Hyperlipidemia Father Mac Hypertension Father Mac Obesity Father Mac ADD Father's Sister Michelle Asthma Father's Sister Michelle Coronary artery disease Maternal Grandfather Mateusz Arthritis Mother nallely Hyperlipidemia Mother nallely Hypertension Mother nallely Obesity Mother nallely Arthritis Paternal Grandmother Alfonso Diabetes Paternal Grandmother Alfonso Anxiety disorder Sister Iris Depression Sister Iris Hyperlipidemia Sister Iris Obesity Sister Iris Tuberculosis Sister Iris Relation Name Status Comments Father Mac Father's Sister Michelle Maternal Grandfather Mateusz Mother nallely Paternal Grandmother Alfonso Sister Iris Social History Tobacco Use Types Packs/Day Years Used Date Smoking Tobacco: Never Smokeless Tobacco: Never Tobacco Cessation:Counseling Given: Not Answered Alcohol Use Standard Drinks/Week Comments Never 0 (1 standard drink = 0.6 oz pur e alcohol) [facility] Utilities Answer Date Recorded In the past 12 months has th e [employer], gas, oil, or water [employer] threatened to shut off services in your [...] your living situation today? I have a [facility] place to live 03/03/2023 Sex and Gender Information Value Date Recorded Sex Assigned at Male 09/11/2022 7:49 AM CDT Gender Identity Male 09/11/2022 7:49 AM CDT Sexual Orientation Straight 09/11/2022 7: 49 AM CDT Last Filed Vital Signs Vital Sign Reading Time Taken Comments Blood Pressure 151/84 04/03/2023 8:15 PM EXECUTIVE STAFF ASSISTANT Pulse 58 04/03/2023 8:15 PM EXECUTIVE STAFF ASSISTANT Temperature 37 ??C (98.6 ??F) 04/03/2023 6:46 PM EXECUTIVE STAFF ASSISTANT Respiratory Rate 20 04/03/2023 6:46 PM EXECUTIVE STAFF ASSISTANT Oxygen Saturation 100% 04/03/2023 8:15 PM EXECUTIVE STAFF ASSISTANT Inhaled Oxygen Concentration - - Weight 134 kg (295 lb 10.2 oz) 04/03/2023 3:27 P M EXECUTIVE STAFF ASSISTANT Height 170.1 cm (5' 6.97) 03/25/2023 1:47 PM CS T Body Mass Index 46.35 03/25/2023 1:47 PM EXECUTIVE STAFF ASSISTANT Plan of Treatment Upcoming Encounters Date Type Department Care Team (Late st Contact Info) Description 06/11/2023 8:00 AM CDT Telemedicine Department of Nutrition and Diabetes Education in [place], [place] [address] [place] [phone] Brandon Mendiola APRN, C.N.P., D.N.P. [address] [place] [phone] Health Maintenance Due Date Last Done Comments Hepatitis C Screening 2003 Visit: Chronic Disease, age 18+ 2003 1 week Well Child Check-Up 2003 1 month Well Child Check-Up 2003 2 month Well Child Check-Up 2003 4 month Well Child Check-Up 2003 6 month Well Child Check-Up 02/26/2004 Hepatitis B Vaccines (4 of 4 - 4-dose series) 03/28/2004 02/04/2004, 2003, 2003 9 month Well Child Check-Up 05/26/2004 12 month Well Child Check-Up 08/25/2004 15 month Well Child Check-Up 11/25/2004 18 month Well Child Check-Up 02/25/2005 2 year Well Child Check-Up 08/25/2005 30 month Well Child Check-Up 02/25/2006 3 year Well Child Check-Up 08/25/2006 Well Child Check-Up Completed in Past Year 08/25/2006 4 year Well Child Check-Up 08/26/2007 5 year Well Child Check-Up 08/25/2008 6 year Well Child Check-Up 08/25/2009 7 year Well Child Check-Up 08/25/2010 8 year Well Child Check-Up 08/26/2011 9 year Well Child Check-Up 08/25/2012 10 year Well Child Check-Up 08/25/2013 11 year Well Child Check-Up 08/25/2014 12 year Well Child Check-Up 08/26/2015 13 year Well Child Check-Up 08/25/2016 12 year Well Child Check-Up 08/25/2017 Vision Screening during Well Child Visit 09/25/2017 15 year Well Child Check-Up 08/25/2018 14 year Well Child Check-Up 08/26/2019 15 year Well Child Check-Up 08/25/2020 16 year Well Child Check-Up 08/25/2021 17 year Well Child Check-Up 08/25/2022 Well Child Check-Up (WCC) 08/25/2022 COVID-19 Vaccine (2022- season) 2022 07/28/2022 Influenza Vaccine (#1) 2022 01/03/2014, 2013 Office Visit for Blood Pressure Check / Re-check 12/12/2022 09/11/2022 Depression Screening (Annual PHQ-2) 02/22/2023 DTaP,Tdap,and Td Vaccines (5 - Td or Tdap) 09/23/2025 09/24/2015, 04/07/2004, 04/07/2004, Additional history exists Pneumococcal vaccine (0-64 years) Aged Out 04/07/2004, 02/04/2004, 2003 No longer eligible based on patient's age to complete this topic MMR Vaccines Completed 02/19/2009, 11/14/2008 Varicella Vaccines Completed 02/19/2009, 11/14/2008 Meningococcal Vaccine Aged Out 09/24/2015, 016 No longer eligible based on patient's age to complete this topic HPV Vaccines Completed 10/09/2019, 09/24/2015 Medical Devices Implanted Type Area Automation Tech Device Identifier Shelf Expiration Date Model / Serial / Lot Clp Apr End Intnl Endo 5x11 - [id number] Implanted:Qt y: 1 on 03/03/2023 by Zeus Santana M.D. at [facility] Hardware e.g. pins/screws /rods N/A: Abdomen [employer] [id number] 10/22/2025 [id number] / / [id number] Procedures Procedure Name Priority Date/Time Associated Diagnosis Comments CT ABDOMEN PELVIS WITH IV CONTRAST RAD - Semiurgent (Fast; most ED patients; some inpatients) 04/03/2023 5:56 PM EXECUTIVE STAFF ASSISTANT LACTATE, B/P STAT 04/03/2023 3:51 PM EXECUTIVE STAFF ASSISTANT CBC WITH DIFFERENTIAL, B STAT 04/03/2023 3:51 PM EXECUTIVE STAFF ASSISTANT BASIC METABOLIC PANEL, S/P STAT 04/03/2023 3:51 PM EXECUTIVE STAFF ASSISTANT from Last 3 Months Results * CT Abdomen Pelvis with IV Contrast (04/03/2023 5:56 PM EXECUTIVE STAFF ASSISTANT) Anatomical Region Laterality Modality Abdomen, Pelvis, Abdominal R ST LOS, Abdominal ARZ LOS, Abdominal FLA LOS N/A Computed Tomograp hy, Computed Tomography 04/03/2023 5:56 PM EXECUTIVE STAFF ASSISTANT Impressions 04/03/2023 6:48 PM EXECUTIVE STAFF ASSISTANT 1. No acute abnormality in the abdomen or pelvis. Specifically, no bowel obstruction. Narrative 04/03/2023 6:48 PM EXECUTIVE STAFF ASSISTANT EXAM: ??CT ABDOMEN PELVIS WITH IV CONTRAST HISTORY: 17-year-old male with abdominal pain COMPARISON: None FINDINGS: Normal appearance of the liver, gallbladder, pancreas, spleen and both adrenals glands. Splenule. Tiny 2 mm nonobstructive right renal calyceal tip calculus. No additional urinary calculi. No hydronephrosis. Postoperative changes of sleeve gastrectomy. Small and large bowel are normal in caliber. Appendix normal in caliber.. No free intraperitoneal fluid. Scattered prominent, but not pathologically enlarged mesenteric lymph nodes. Prostate gland normal in size. Urinary bladder normal. Nonaneurysmal aorta. Postoperative changes/scarring in the lower anterior abdominal wall. Visualized lung bases are clear. Procedure Note Yeimy Loo M.D. - 04/03/2023 EXAM: CT ABDOMEN PELVIS WITH IV CONTRAST HISTORY: 17-year-old male with abdominal pain COMPARISON: None FINDINGS: Normal appearance of the liver, gallbladder, pancreas, spleenand both adrenals glands. Splenule. Tiny 2 mm nonobstructive right renal calyceal tip calculus. No additionalurinary calculi. No hydronephrosis. Postoperative changes of sleeve gastrectomy. Small and large bowel arenormal in caliber. Appendix normal in caliber.. No free intraperitonealfluid. Scattered prominent, but not pathologically enlarged mesentericlymph nodes. Prostate gland normal in size. Urinary bladder normal. Nonaneurysmal aorta. Postoperative changes/scarring in the lower anterior abdominal wall. Visualized lung bases are clear. IMPRESSION: 1. No acute abnormality in the abdomen or pelvis. Specifically, no bowelobstruction. John Seth P.A.-C. IMG CT PROCEDURES * (ABNORMAL) CBC with Differential, Blood (04/03/2023 3:51 PM EXECUTIVE STAFF ASSISTANT) Hemoglobin 16.1 13.2 - 16.6 g/dL 04/03/2023 4:00 PM EXECUTIVE STAFF ASSISTANT STMA Hematocrit 45.7 38.3 - 48.6 % 04/03/2023 4:00 PM EXECUTIVE STAFF ASSISTANT STMA Erythrocytes 5.46 4.35 - 5.65 x10(12)/L 04/03/2023 4:00 PM EXECUTIVE STAFF ASSISTANT STMA MCV 83.7 78.2 - 97.9 fL 04/03/2023 4:00 PM EXECUTIVE STAFF ASSISTANT STMA RBC Distrib Width 13.2 11.8 - 14.5 % 04/03/2023 4:00 PM EXECUTIVE STAFF ASSISTANT STMA Platelet Count 313 135 - 317 x10(9)/L 04/03/2023 4:00 PM EXECUTIVE STAFF ASSISTANT STMA Leukocytes 10.7(H) 3.4 - 9.6 x10(9)/L 04/03/2023 4:00 PM EXECUTIVE STAFF ASSISTANT STMA Neutrophils 7.37(H) 1.56 - 6.45 x10(9)/L 04/03/2023 4:00 PM EXECUTIVE STAFF ASSISTANT PM Lymphocytes 2.57 0.95 - 3.07 x10(9)/L 04/03/2023 4:00 PM EXECUTIVE STAFF ASSISTANT STMA Monocytes 0.57 0.26 - 0.81 x10(9)/L 04/03/2023 4:00 PM EXECUTIVE STAFF ASSISTANT STMA Eosinophils 0.14 0.03 - 0.48 x10(9)/L 04/03/2023 4:00 PM EXECUTIVE STAFF ASSISTANT STMA Basophils 0.07 0.01 - 0.08 x10(9)/L 04/03/2023 4:00 PM EXECUTIVE STAFF ASSISTANT STMA Blood (Blood, Venous) 04/03/2023 3:51 PM EXECUTIVE STAFF ASSISTANT 04/03/2023 3:57 PM EXECUTIVE STAFF ASSISTANT John Nunn-C. LAB BLOOD ADD-ON [facility] [address] [place] [address], [facility] [address] [place] [address] * Lactate (04/03/2023 3:51 PM EXECUTIVE STAFF ASSISTANT) Pathologist [facility] Lactate, P 1.3 0.5 - 2.2 mmol/L 04/03/2023 4:31 PM EXECUTIVE STAFF ASSISTANT STMA Blood (Blood, Venous) 04/03/2023 3:51 PM EXECUTIVE STAFF ASSISTANT 04/03/2023 3:58 PM EXECUTIVE STAFF ASSISTANT John Nunn-CMiguel LAB BLOOD NON ADD -ON [facility] [address] [place] [address], [facility] STMA [facility] [address] [place] [address] * (ABNORMAL) Basic Metabolic Panel (04/03/2023 3:51 PM EXECUTIVE STAFF ASSISTANT) Potassium, P 3.5(L) 3.6 - 5.2 mmol/L 04/03/2023 4:36 PM EXECUTIVE STAFF ASSISTANT STMA Sodium, P 142 135 - 145 mmol/L 04/03/2023 4:36 PM EXECUTIVE STAFF ASSISTANT STMA Chloride, P 100 98 - 107 mmol/L 04/03/2023 4:36 PM EXECUTIVE STAFF ASSISTANT STMA Bicarbonate, P 25 22 - 29 mmol/L 04/03/2023 4:36 PM EXECUTIVE STAFF ASSISTANT STMA Anion Gap, P 17(H) 7 - 15 04/03/2023 4:36 PM EXECUTIVE STAFF ASSISTANT STMA BUN (Blood Urea Nitrogen), P 9 8 - 24 mg/dL 04/03/2023 4:36 PM EXECUTIVE STAFF ASSISTANT STMA Creatinine 0.74 0.74 - 1.35 mg/dL 04/03/2023 4:36 PM EXECUTIVE STAFF ASSISTANT STMA Estimated GFR (eGFR) >90 >=60 mL/min/BSA 04/03/2023 4:36 PM EXECUTIVE STAFF ASSISTANT ST[facility] Comment: Estimated GFR calculated using the 2020 CKD_EPI creatinine equation. Calcium, Total, P 9.8 8.6 - 10.0 mg/dL 04/03/2023 4:36 PM EXECUTIVE STAFF ASSISTANT STMA Glucose, P 103 70 - 140 mg/dL 04/03/2023 4:36 PM EXECUTIVE STAFF ASSISTANT STMA Blood (Blood, Venous) 04/03/2023 3:51 PM EXECUTIVE STAFF ASSISTANT 04/03/2023 3:57 PM EXECUTIVE STAFF ASSISTANT John Seth P.A.-C. LAB BLOOD ADD-ON [facility] [address] [place] [address], [facility] STMA [facility] [address] [place] [address] from Last 3 Months Advance Directives For more information, please contact: [phone] * Full Code (Latest Code Status on File) Date Activated Date Inactivated Comments 03/03/2023 12:13 PM 03/05/2023 4:14 PM Question Answer Comments Full Code: Discussed * Full Code Date Activated Date Inactivated Comments 03/03/2023 5:46 AM 03/03/2023 12:13 PM Question Answer Comments Full Code: Discussed Care Teams Spin Table Operator Relationship Specialty Start Date End Date None Reported, Pcp PCP - General Family Medicine 04/03/23
--- OUTSIDE RECORDS SUMMARY | 2023-06-08 13:35 | XMS_ITS | Encounter Summary ---
Author Name Unknown Organization [facility] Address [address] [place] [id number] Care Team Providers Care Property Management Specialist Name Role Phone None Reported, Pcp Primary Care Provider Unavail able Reason for Visit * Outpatient (Routine) - Closed Specialty Diagnoses / Procedures Referred By Serena becker Referred To Contact Sleep Medicine Diagnoses Body Mass Index 50.0 To 59.9 Adult (HCC) Sonia Muñiz M.D. [address] [place] [phone] [facility] Referral ID Status Reason Start Date Expiration Date V isits Requested Visits Authorized [id number] Closed Specialty Services Required 09/11/2022 09/11/2023 1 1 Encounter Details Date Type Department Care Team (Latest Contact Info) Description 04/07/2023 2:30 PM [facility] Comprehensive Visit Center for Sleep Medicine in [place], [place] [address] [place] [phone] Randal Campoverde, EDELMIRA, C.N.P., M.S.N. [address] [place] [phone] Body Mass Index 50.0 To 59.9 Adult (HCC) Social History Tobacco Use Types Packs/Day Years Used Date Smoking Tobacco: Never Smokeless Tobacco: Never Alcohol Use Standard Drinks/Week Comments Never 0 (1 standard drink = 0.6 oz pur e alcohol) [facility] Utilities Answer Date Recorded In the past 12 months has [employer], gas, oil, or water company threatened to shut off services in your [...] your living situation today? I have a [facility] place to live 03/03/2023 Sex and Gender Information Value Date Recorded Sex Assigned at Male 09/11/2022 7:49 AM CDT Gender Identity Male 09/11/2022 7:49 AM CDT Sexual Orientation Straight 09/11/2022 7: 49 AM CDT documented as of this encounter Progress Notes * Randal Campoverde, EDELMIRA, C.N.P., M.S.N. - 04/07/2023 2:30 PM CST SUBJECTIVE REASON FOR CONSULT Review oximetry HISTORY OF PRESENT ILLNESS Mr. Narendra Carolina is a 17 y.o. male who is seen by request of Sonia Muñiz M.D. for above need. Past medical history significant for morbid obesity status post bariatric surgery (roboticassisted sleeve gastrectomy 03/03/2023), history of latent tuberculosis, hypertension, history of anxiety, dyslipidemia, IFG. Overnight oximetry completed on room air on 09/29/2022 revealed adjusted index of 1.6 events per hour with basal SpO2 at 95%. Oxyhemoglobin allan was 90%. Really no significant oscillatory variability on oximetry tracing. Average heart rate was 66 beats per minute. Some heart rate variability noted. Sleep history: -Sleep aid: No. -Bedtime: 11:30 p.m. on work days and 1:00 a.m. on days off. -Sleep onset latency: 20 minutes. -Sleep interruptions: Status post bariatric surgery says he has been sleeping through the night forthe most part. -Snoring: He did snore more before weight loss but says since he is lost approximately 60 lb he does not wake up with snort arousals and family does not complain of his snoring being as loud either.. -Witnessed apnea: He did have witnessed apnea prior to his bariatric surgery but states since surgery and approximately 60 lb weight loss family has not noted concern for apnea. -Breathing related arousals: History of snort arousals and choking type episodes prior to weight loss but this has not occurred since. -Arise time: 7:00 a.m. on work days 10-11 a.m. on days off. -Refreshed: Says he generally feels refreshed as long as he gets enough sleep. -grab operator headaches: No. -ESS score: 9. -MVA or near miss accident associated with sleepiness: Denies feeling sleepy while driving. -Daytime somnolence: No. Patient denies any history of hypnagogic hallucinations, sleep paralysis, sleep walking/talking/eating, dream enactment, cardinal symptoms of RLS, or narcolepsy. Status post tonsillectomy. Currently employed and works in normal day shift from approximately 7 a.m. until 3:00 p.m.. Never smoker. Denies drug and alcohol use. OBJECTIVE Patient Active Problem List Diagnosis Hypertension Essential Primary Obstructive Sleep Apnea Adult Tuberculosis Latent Morbid Obesity Body Mass Index 45.0-49.9 Adult ([facility]) Surgery Bariatric Status Post Gastrectomy Partial Status Post Past Surgical History: Procedure Laterality Date JOINT REPLACEMENT may 13 2022 MCl repair MEDIAL COLLATERAL LIGAMENT AND LATERAL COLLATERAL LIGAMENT REPAIR, KNEE Left 04/22/2022 MYRINGOTOMY W/ TUBES 2009 OTHER SURGICAL HISTORY taunsols tubes ear repair ROBOTIC-ASSISTED SLEEVE GASTRECTOMY N/A 03/03/2023 Procedure: ROBOTIC-ASSISTED SLEEVE GASTRECTOMY.; Surgeon: Zeus Santana M.D.; Location: [facility] OR TONSILLECTOMY 2009 Current Outpatient Medications: acetaminophen (TYLENOL) 500 mg tablet, Take 2 tablets (1,000 mg total) by mouth every 6 (six) hoursas needed for pain or fever., Disp: , Rfl: calcium carbonate (TUMS) 500 mg (200 mg calcium) chewable tablet, Chew 2 tablets (400 mg of calciumtotal) 2 (two) times a day., Disp: , Rfl: cholecalciferol (Vitamin D3) 50 mcg (2,000 Unit) tablet, Take 1 tablet (50 mcg total) by mouth daily., Disp: , Rfl: cyanocobalamin (VITAMIN B12) 1,000 mcg/mL injection, Inject 1 mL (1,000 mcg total) under the skin every 30 (thirty) days., Disp: 3 mL, Rfl: 3 ondansetron (ZOFRAN) 4 mg tablet, Take 1 tablet (4 mg total) by mouth every 8 (eight) hours as needed for nausea or vomiting for up to 5 days., Disp: 15 tablet, Rfl: 0 pantoprazole (PROTONIX) 40 mg EC tablet, Take 1 tablet (40 mg total) by mouth every morning before breakfast. For life after bariatric surgery, Disp: 90 tablet, Rfl: 3 pediatric lqlcqlbmqmve-iuwl-arqqncdc (FLINTSTONES COMPLETE) chewable tablet, Chew 1 tablet 2 (two) times a day., Disp: , Rfl: SQ 3 ml Injection Kit, Use as directed to inject prescribed medication., Disp: 1 each, Rfl: 0 ursodioL (ACTIGALL) 300 mg capsule, Take 1 capsule (300 mg total) by mouth 2 (two) times a day., Disp: 180 capsule, Rfl: 1 Lab Results Component Value Date NA 142 04/03/2023 CREATININE 0.74 04/03/2023 EGFR >90 04/03/2023 GLUCOSE 103 04/03/2023 CALCIUM 9.8 04/03/2023 HGBA1C 5.1 09/28/2022 CHOL 127 09/28/2022 HDL 46 09/28/2022 LDLCALC 57 09/28/2022 TRIG 138 09/28/2022 TSH 2.0 09/28/2022 AST 15 09/28/2022 ALT 21 09/28/2022 BUN 9 04/03/2023 Lab Results Component Value Date WBC 10.7 (H) 04/03/2023 HGB 16.1 04/03/2023 HCT 45.7 04/03/2023 MCV 83.7 04/03/2023 PLT 313 04/03/2023 VITAL SIGNS There were no vitals filed for this visit. BP Readings from Last 3 Encounters: 04/03/23 151/84 03/05/23 157/85 12/17/22 (!) 164/100 Wt Readings from Last 3 Encounters: 04/03/23 134 kg (>99%, Z= 3.02)* 03/25/23 136 kg (>99%, Z= 3.06)* 03/03/23 (!) 148 kg (>99%, Z= 3.33)* * Growth percentiles are based on CDC (Boys, 2-20 Years) data. Estimated body mass index is 46.35 kg/m?? as calculated from the following: Height as of 03/25/23: 170.1 cm. Weight as of 04/03/23: 134 kg. PHYSICAL EXAMINATION General: Well groomed, pleasant, and in no acute distress. Head: Head normocephalic, atraumatic. Eyes: Eyes PERRL. ENT: Both nares patent. Dentition in good repair and no significant malocclusion or overjet; gums normal. Oropharynx pink and moist with no lesions or exudates; ample AP and lateral diameters. Mccord grade II-III. Neck: Neck circumference 46 cm. Neck thick. Lungs: Breathing comfortably on room air with no conversational dyspnea. Abdomen: Obese. Neuro: No resting tremor. Psychiatric: Answers questions in a timely, logical fashion. Cooperative with exam and follows instructions without difficulty. Makes good eye contact during exam. Speech normal rate and tone. Affectis broad and mood does not appear depressed. Patient is not fidgety or restless and does not appearanxious. Stays on topic with conversation, no flight of ideas. Judgment and insight seem to be grossly intact. Musculoskeletal: Ambulates independently with normal gait and cruz. No abnormal movements observed. ASSESSMENT / PLAN #1 Review overnight oximetry results #2 History of loud snoring and witnessed apnea which patient reports has improved significantly status post bariatric surgery #3 Medically complicated morbid obesity, status post robotic assisted sleeve gastrectomy 02/2022 (patient states he is lost approximately 60 lb since he completed the oximetry last September) #4 Suboptimal sleep hygiene #5 Hypertension Reviewed sleep history and previous overnight oximetry in detail with Mr. Narendra Carloina. Notably, there was very little oscillatory variability on the overnight oximetry from September of 2022 and patient has lost significant weight loss since that time. He is sleeping better and has had no snort arousals or coughing type episodes with weight loss. He feels his sleep is restorative and refreshing and he does not have any significant daytime somnolence. Therefore, it does not seem prudent to proceed with a formal sleep study at this time. I think it makes more sense for patient to continue to monitor symptoms and if he should develop more symptoms of sleep disordered breathing over time then I certainly encouraged him to reach out to me at which point we can consider formal sleep study options. Furthermore patient continues to actively lose weight which should further reduce his risk. We did talk some about sleep hygiene and working on circadian rhythm. He understands the importance of getting sufficient sleep which would generally be considered at least 7-8 hours nightly. See general sleep hygiene recommendations below: --Consistent bed and wake times (week and weekends) --Bedroom should be cool, dark and quiet --Regular mealtimes/snacks --Limit liquids and avoid heavy foods close to bedtime --Use bed only for sleep and sex --Don???t take problems to bed, schedule worry time earlier --Avoid napping --Avoid clock watching --Limit caffeine --Exercise regularly and finish at least 3-4 hours before bed --Avoid alcohol, tobacco & other substances that interfere with sleep --Work towards goal of at least 7 hours of sleep per night. All questions answered to the best of my ability. Provided patient with my card which includes [facility] contact information. Encourage patient to call with any questions. Patient verbalized understanding of the plan of care and is in agreement. I personally spent over half of a total 30 minutes face to face with the patient in counseling and discussion and/or coordination of care as described above. NOMETER ADJUSTER documented in this encounter Plan of Treatment Upcoming Encounters Date Type Department Care Team (Late st Contact Info) Description 06/11/2023 8:00 AM CDT Telemedicine Department of Nutrition and Diabetes Education in [place], [place] [address] [place] [phone] Brandon Mendiola APRN, C.N.P., D.N.P. [address] [place] [phone] documented as of this encounter Visit Diagnoses Diagnosis Body Mass Index 50.0 To 59.9 Adult (HCC) documented in this encounter Additional Health Concerns Assessment Noted Time PHQ-9 Depression Total Score: 6 09/29/19 23 11:41 AM CDT documented as of this encounter Care Teams Property Management Specialist Relationship Specialty Start Date End Date None Reported, Pcp PCP - General Family Medicine 04/03/23 documented as of this encounter
--- OUTSIDE RECORDS SUMMARY | 2023-06-08 13:35 | XMS_ITS | Referral Summary ---
Author Name Unknown Organization [facility] Address [address] [place] [phone] Care Team Providers Care Ui Software Developer Name Role Phone None Reported, Pcp Primary Care Provider Unavail able Source Comments Patient records contain information from all sites at [facility]. For routine questions regarding patient records, call [phone] during business hours, M-F 8:00 AM - 5:00 PM Central Time. Record requests for emergency care only can be directed to [phone] at any time.[facility] Encounters Date Type Department Care Team Description 04/19/2023 7:10 AM [employer]DLE SCHOOL READING TEACHER - 04/19/2023 11:59 PM [facility] Hospital Encounter Department of Laboratory Medicine and Pathology, [facility] in [place], [place] [address] [place] [phone] Brandon Mendiola APRN, C.N.P., D.N.P. Gastric Bypass Status Post Discharge Disposition: Home or Self Care 04/12/2023 Clinical Communication Division of Endocrinology in [place], [place] [address] [place] [phone] Brandon Mendiola APRN, C.N.P., D.N.P. Follow-up Orders 04/07/2023 2:30 PM [facility] Comprehensive Visit Center for Sleep Medicine in [place], [place] [address] [place] [phone] Randal Campoverde APRN, C.N.P., M.S.N. Body Mass Index 50.0 To 59.9 Adult ([facility]) 04/03/2023 3:23 PM MIDDLE SCHOOL READING TEACHER - 04/03/2023 8:19 PM MIDD[employer]CHOOL READING TEACHER Emergency [facility] Emergency Department [address] [place] [phone] John Seth P.A.-C. Abdominal Pain (Primary Dx) Discharge Disposition: Home or Self Care 03/26/2023 1:00 PM MIDD[employer] SCHOOL READING TEACHER Telemedicine Department of Nutrition and Diabetes Education in [place], [place] [address] [place] [phone] Dai Xiong P.A.-C., M.S. Alexa Álvarez RDN, LD Gastrectomy Partial Status Post (Primary Dx) 03/25/2023 2:00 PM [employer] SCHO[employer] READING TEACHER Office Visit Division of Metabolic and Abdominal Wall Reconstructive Surgery in [address] [phone] Ramona Gonzalez APRN, C.N.P., D.N.P. Gastrectomy Partial Status Post (Primary Dx); Follow Up Examination Postoperative Visit 03/23/2023 Clinical Communication Division of Endocrinology in [address] [phone] Brandon Mendiola APRN, C.N.P., D.N.P. Pre-visit Testing Orders 03/12/2023 Clinical Communication Division of Metabolic and Abdominal Wall Reconstructive Surgery in [place], [place] [address] [place] [phone] Zeus Santana M.D. Post-op Follow-up from Last 3 Months Allergies No known active allergies Medications Medication [...] Sleep Apnea Adult 09/11/2022 Tuberculosis Latent 09/11/2022 Social History Tobacco Use Types Packs/Day Years Used Date Smoking Tobacco: Never Smokeless Tobacco: Never Tobacco Cessation:Counseling Given: Not Answered Alcohol Use Standard Drinks/Week Comments Never 0 (1 standard drink = 0.6 oz pur e alcohol) [facility] Utilities Answer Date Recorded In the past 12 months has [facility] [employer], oil, or water [employer] threatened to shut off services in your [...] your living situation today? I have a [facility] place to live 03/03/2023 Sex and Gender Information Value Date Recorded Sex Assigned at Male 09/11/2022 7:49 AM CDT Gender Identity Male 09/11/2022 7:49 AM CDT Sexual Orientation Straight 09/11/2022 7: 49 AM CDT Last Filed Vital Signs Vital Sign Reading Time Taken Comments Blood Pressure 151/84 04/03/2023 8:15 PM [employer]DLE SCHOOL READING TEACHER Pulse 58 04/03/2023 8:15 PM MIDDLE SCHOOL READING TEACHER Temperature 37 ??C (98.6 ??F) 04/03/2023 6:46 PM MIDDLE SCHOOL READING TEACHER Respiratory Rate 20 04/03/2023 6:46 PM MIDDLE SCHOOL READING TEACHER Oxygen Saturation 100% 04/03/2023 8:15 PM MIDDLE SCHOOL READING TEACHER Inhaled Oxygen Concentration - - Weight 134 kg (295 lb 10.2 oz) 04/03/2023 3:27 P M MIDDLE SCHOOL READING TEACHER Height 170.1 cm (5' 6.97) 03/25/2023 1:47 PM CS T Body Mass Index 46.35 03/25/2023 1:47 PM MIDDLE SCHOOL READING TEACHER Plan of Treatment Upcoming Encounters Date Type Department Care Team (Late st Contact Info) Description 06/11/2023 8:00 AM CDT Telemedicine Department of Nutrition and Diabetes Education in [place], [place] [address] [place] [phone] Brandon Mendiola APRN, C.N.P., D.N.P. [address] [place] [phone] Medical Devices Implanted Type Area Auto Radiator Mechanic Device Identifier Shelf Expiration Date Model / Serial / Lot Clp Apr End Intnl Endo 5x11 - [id number] Implanted:Qt y: 1 on 03/03/2023 by Zeus Santana M.D. at [facility] Hardware e.g. pins/screws /rods N/A: Abdomen [employer] [id number] 10/22/2025 [id number] / / [id number] Procedures Procedure Name Priority Date/Time Associated Diagnosis Comments CT ABDOMEN PELVIS WITH IV CONTRAST RAD - Semiurgent (Fast; most ED patients; some inpatients) 04/03/2023 5:56 PM MIDDLE SCHOOL READING TEACHER LACTATE, B/P STAT 04/03/2023 3:51 PM MIDDLE SCHOOL READING TEACHER CBC WITH DIFFERENTIAL, B STAT 04/03/2023 3:51 PM MIDDLE SCHOOL READING TEACHER BASIC METABOLIC PANEL, S/P STAT 04/03/2023 3:51 PM MIDDLE SCHOOL READING TEACHER from Last 3 Months Results * CT Abdomen Pelvis with IV Contrast (04/03/2023 5:56 PM MIDDLE SCHOOL READING TEACHER) Anatomical Region Laterality Modality Abdomen, Pelvis, Abdominal R ST LOS, Abdominal ARZ LOS, Abdominal FLA LOS N/A Computed Tomograp hy, Computed Tomography 04/03/2023 5:56 PM MIDDLE SCHOOL READING TEACHER Impressions 04/03/2023 6:48 PM MIDDLE SCHOOL READING TEACHER 1. No acute abnormality in the abdomen or pelvis. Specifically, no bowel obstruction. Narrative 04/03/2023 6:48 PM MIDDLE SCHOOL READING TEACHER EXAM: ??CT ABDOMEN PELVIS WITH IV CONTRAST [...] the abdomen or pelvis. Specifically, no bowelobstruction. Wesan S Shango P.A.-C. IMG CT PROCEDURES * (ABNORMAL) CBC with Differential, Blood (04/03/2023 3:51 PM MIDDLE SCHOOL READING TEACHER) Hemoglobin 16.1 13.2 - 16.6 g/dL 04/03/2023 4:00 PM MIDDLE SCHOOL READING TEACHER [facility] Hematocrit 45.7 38.3 - 48.6 % 04/03/2023 4:00 PM MIDDLE SCHOOL READING TEACHER [facility] Erythrocytes 5.46 4.35 - 5.65 x10(12)/L 04/03/2023 4:00 PM MIDDLE SCHOOL READING TEACHER [facility] MCV 83.7 78.2 - 97.9 fL 04/03/2023 4:00 PM MIDDLE SCHOOL READING TEACHER [facility] RBC Distrib Width 13.2 11.8 - 14.5 % 04/03/2023 4:00 PM MIDDLE SCHOOL READING TEACHER [facility] Platelet Count 313 135 - 317 x10(9)/L 04/03/2023 4:00 PM MIDDLE SCHOOL READING TEACHER [facility] Leukocytes 10.7(H) 3.4 - 9.6 x10(9)/L 04/03/2023 4:00 PM MIDDLE SCHOOL READING TEACHER [facility] Neutrophils 7.37(H) 1.56 - 6.45 x10(9)/L 04/03/2023 4:00 PM MIDDLE SCHOOL READING TEACHER DHPM Lymphocytes 2.57 0.95 - 3.07 x10(9)/L 04/03/2023 4:00 PM MIDDLE SCHOOL READING TEACHER [facility] Monocytes 0.57 0.26 - 0.81 x10(9)/L 04/03/2023 4:00 PM MIDDLE SCHOOL READING TEACHER [facility] Eosinophils 0.14 0.03 - 0.48 x10(9)/L 04/03/2023 4:00 PM MIDDLE SCHOOL READING TEACHER [facility] Basophils 0.07 0.01 - 0.08 x10(9)/L 04/03/2023 4:00 PM MIDDLE SCHOOL READING TEACHER [facility] Blood (Blood, Venous) 04/03/2023 3:51 PM MIDDLE SCHOOL READING TEACHER 04/03/2023 3:57 PM MIDDLE SCHOOL READING TEACHER John Seth P.A.-C. LAB BLOOD ADD-ON [facility] [address] [place] [address], [facility] ST[facility] [address] [place] [address] [facility] [address] [place] [address] * Lactate (04/03/2023 3:51 PM MIDDLE SCHOOL READING TEACHER) [facility] Lactate, P 1.3 0.5 - 2.2 mmol/L 04/03/2023 4:31 PM MIDDLE SCHOOL READING TEACHER [facility] Blood (Blood, Venous) 04/03/2023 3:51 PM MIDDLE SCHOOL READING TEACHER 04/03/2023 3:58 PM MIDDLE SCHOOL READING TEACHER John Seth P.A.-C. LAB BLOOD NON ADD -ON [facility] [address] [place] [address], [facility] ST[facility] [address] [place] [address] * (ABNORMAL) Basic Metabolic Panel (04/03/2023 3:51 PM MIDDLE SCHOOL READING TEACHER) [facility] Potassium, P 3.5(L) 3.6 - 5.2 mmol/L 04/03/2023 4:36 PM MIDDLE SCHOOL READING TEACHER [facility] Sodium, P 142 135 - 145 mmol/L 04/03/2023 4:36 PM MIDDLE SCHOOL READING TEACHER [facility] Chloride, P 100 98 - 107 mmol/L 04/03/2023 4:36 PM MIDDLE SCHOOL READING TEACHER [facility] Bicarbonate, P 25 22 - 29 mmol/L 04/03/2023 4:36 PM MIDDLE SCHOOL READING TEACHER [facility] Anion Gap, P 17(H) 7 - 15 04/03/2023 4:36 PM MIDDLE SCHOOL READING TEACHER [facility] BUN (Blood Urea Nitrogen), P 9 8 - 24 mg/dL 04/03/2023 4:36 PM MIDDLE SCHOOL READING TEACHER [facility] Creatinine 0.74 0.74 - 1.35 mg/dL 04/03/2023 4:36 PM MIDDLE SCHOOL READING TEACHER [facility] Estimated GFR (eGFR) >90 >=60 mL/min/BSA 04/03/2023 4:36 PM MIDDLE SCHOOL READING TEACHER [facility] Comment: Estimated GFR calculated using the 2020 CKD_EPI creatinine equation. Calcium, Total, P 9.8 8.6 - 10.0 mg/dL 04/03/2023 4:36 PM MIDDLE SCHOOL READING TEACHER [facility] Glucose, P 103 70 - 140 mg/dL 04/03/2023 4:36 PM MIDDLE SCHOOL READING TEACHER [facility] Blood (Blood, Venous) 04/03/2023 3:51 PM MIDDLE SCHOOL READING TEACHER 04/03/2023 3:57 PM MIDDLE SCHOOL READING TEACHER John Seth P.A.-C. LAB BLOOD ADD-ON [facility] [address] [place] [address], [place] [facility] [address] [place] [address] from Last 3 Months Advance Directives For more information, please contact: [phone] * Full Code (Latest Code Status on File) Date Activated Date Inactivated Comments 03/03/2023 12:13 PM 03/05/2023 4:14 PM Question Answer Comments Full Code: Discussed * Full Code Date Activated Date Inactivated Comments 03/03/2023 5:46 AM 03/03/2023 12:13 PM Question Answer Comments Full Code: Discussed Care Teams Ui Software Developer Relationship Specialty Start Date End Date None Reported, Pcp PCP - General Family Medicine 04/03/23
--- OUTSIDE RECORDS SUMMARY | 2023-06-08 13:36 | XMS_ITS | Encounter Summary ---
Author Name Unknown Organization [facility] Address [address] [place] [address] Care Team Providers Care Grove Worker Name Role Phone Unavailable Primary Care Provider Unavailabl e Reason for Visit * Reason Onset Date Comments Post-op Follow-up 03/12/2023 Encounter Details Date Type Department Care Team (Latest Contact Info) Description 03/12/2023 Clinical Communication Division of Metabolic and Abdominal Wall Reconstructive Surgery in [place], [place] [address] [place] [phone] Zeus Santana M.D. [address] [place] [phone] Post-op Follow-up Social History Tobacco Use Types Packs/Day Years Used Date Smoking Tobacco: Never Smokeless Tobacco: Never Alcohol Use Standard Drinks/Week Comments Never 0 (1 standard drink = 0.6 oz pur e alcohol) [facility] Utilities Answer Date Recorded In the past 12 months has [facility] [employer], gas, oil, or water [employer] threatened to shut off services in your [...] your living situation today? I have a [facility] place to live 03/03/2023 Sex and Gender Information Value Date Recorded Sex Assigned at Male 09/11/2022 7:49 AM CDT Gender Identity Male 09/11/2022 7:49 AM CDT Sexual Orientation Straight 09/11/2022 7: 49 AM CDT documented as of this encounter Miscellaneous Notes * Telephone Encounter - Valerie Aguilar R.N. - 03/12/2023 10:34 AM CST SUBJECTIVE CHIEF COMPLAINT / REASON FOR CALL Post-op Follow-up Information Discussed ChengSantiago Carolina is status post robotic assisted sleeve gastrectomy on 03/03/[address] Santana. Incision location: Abdomen Incision: clean, dry, and intact Pain: controlled and no pain medications needed Diet: eating: without difficulty, drinking: without difficulty, bariatric clears, tolerating 64 ounces per day, and bariatirc pureed: progressing PLAN Disposition/Recommendation: self-care is appropriate at this time, patient encouraged to call back with questions Information/Education: patient/caller able to teach back Caller agreeable to plan of care: yes The following references were used: nursing clinical judgement TECHNICIAN documented in this encounter Plan of Treatment Upcoming Encounters Date Type Department Care Team (Late st Contact Info) Description 06/11/2023 8:00 AM CDT Telemedicine Department of Nutrition and Diabetes Education in [place], [place] [address] [place] [phone] Brandon Mendiola APRN, C.N.P., D.N.P. [address] [place] [phone] documented as of this encounter Visit Diagnoses Not on filedocumented in this encounter Additional Health Concerns Assessment Noted Time PHQ-9 Depression Total Score: 6 09/29/19 23 11:41 AM CDT documented as of this encounter
--- OUTSIDE RECORDS SUMMARY | 2023-06-08 13:36 | XMS_ITS | Clinical Summary ---
Author Name Unknown Organization [facility] Address [address] [place] [address] Care Team Providers Care Parachute Folder Name Role Phone Unavailable Primary Care Provider Unavailabl e Allergies No known active allergies Medications No known medications Social History Tobacco Use Types Packs/Day Years Used Date Smoking Tobacco: Never Assessed PHQ-2 Answer Date Recorded PHQ-2 Score 0 06/16/2021 Adolescent Education Answer Date Record ed Getting School Help Needed Not on file 11/14 Sex and Gender Information Value Date Recorded Sex Assigned at Not on file Gender Identity Not on file Sexual Orientation Not on file Last Filed Vital Signs Vital Sign Reading Time Taken Comments Blood Pressure - - Pulse - - Temperature - - Respiratory Rate - - Oxygen Saturation - - Inhaled Oxygen Concentration - - Weight - - Height 170.2 cm (5' 7) 06/16/2021 3:03 PM CDT Body Mass Index - - Plan of Treatment Health Maintenance Due Date Last Done Comments ADVANCE CARE PLANNING 2003 ANNUAL REVIEW OF HM ORDERS 2003 YEARLY PREVENTIVE VISIT 2003 HEPATITIS B IMMUNIZATION (4 of 4 - 4-dose series) 03/28/2004 02/04/2004, 2003, 2003 HIV SCREENING 09/25/2018 HEPATITIS C SCREENING 09/25/2021 COVID-19 Vaccine ( season) 2022 INFLUENZA VACCINE (#1) 2022 01/03/2014 PHQ-2 (once per calendar year) 2023 06/16/2021 DTAP/TDAP/TD IMMUNIZATION (5 - Td or Tdap) 09/23/2025 09/24/2015, 04/07/2004, 02/04/2004, Additional history exists HIB IMMUNIZATION Aged Out 02/04/2004, 2003 N o longer eligible based on patient's age to complete this topic Pneumococcal Vaccine: Pediatrics (0 to 5 Years) and At-Risk Patients (6 to 64 Years) Aged Out 04/07/2004, 02/04/2004, 2003 No longer eligible based on patient's age to complete this topic VARICELLA IMMUNIZATION Completed 02/19/2009, 2008 IPV IMMUNIZATION Completed 01/03/2014, , 02/04/2004, Additional history exists MENINGITIS IMMUNIZATION Aged Out 09/24/2015 No l onger eligible based on patient's age to complete this topic HPV IMMUNIZATION Completed 10/09/2019, 09/24/2015 RSV MONOCLONAL ANTIBODY Aged Out No l onger eligible based on patient's age to complete this topic
--- OUTSIDE RECORDS SUMMARY | 2023-06-08 13:36 | XMS_ITS ---
Author Name Unknown Organization [facility] Address [address] [place] [address] Care Team Providers Care Building Construction Superintendent Name Role Phone None Reported, Pcp Primary Care Provider Unavail able Status:Enrolled (Active) Start date:08/03/2022 Enrollment date:08/03/2022 Current support & services provided:Pre-Op Related social determinants of health:Food Insecurity, Transportation Needs Continued Care and Services Coordination
--- OUTSIDE RECORDS SUMMARY | 2023-06-08 13:36 | XMS_ITS | Encounter Summary ---
Author Name Unknown Organization [facility] Address [address] [place] [address] Care Team Providers Care Manufacturing Mechanic Name Role Phone Unavailable Primary Care Provider Unavailabl e Encounter Details Date Type Department Care Team (Latest Contact Info) Description 03/02/2023 2:04 PM REVENUE STAMPER - 03/02/2023 11:59 PM REVENUE STAMPER Hospital Encounter Department of Laboratory Medicine and Pathology, [facility] in [place], [place] [address] [place] [phone] Desirae Hughes APRN, C.N.P., M.S.N. [address] [place] [phone] Preanesthetic Medical Exam Discharge Disposition: Home or Self Care Social History Tobacco Use Types Packs/Day Years Used Date Smoking Tobacco: Never Smokeless Tobacco: Never Alcohol Use Standard Drinks/Week Comments Never 0 (1 standard drink = 0.6 oz pur e alcohol) [facility] Utilities Answer Date Recorded In the past 12 months has [facility] [employer], gas, oil, or water [employer] threatened to shut off services in your [...] your living situation today? I have a [facility] place to live 03/03/2023 Sex and Gender [...] 30 (thirty) days. 3 mL 3 04/03/2023 pediatric tllusukajonf-fwnz-jnwx rals (FLINTSTONES COMPLETE) chewable tablet Chew 1 tablet 2 (two) times a day. 03/04/2023 enoxaparin (LOVENOX) 60 mg/0.6 mL injection Inject 0.6 mL (60 mg total) under the skin daily for 14 days. 8.4 mL 03/05/2023 03/25/2023 oxyCODONE (ROXICODONE) 5 mg immediate release tabletIndications:Acut e Pain Take 1 tablet (5 mg total) by mouth every 4 (four) hours as needed (For pain not controlled by Tylenol) Indication: Acute Pain. 12 tablet 03/04/2023 03/25/2023 pantoprazole (PROTONIX) 40 mg EC tablet Take 1 tablet (40 mg total) by mouth every morning before breakfast. For life after bariatric surgery 30 tablet 3 03/04/2023 03/25/2023 documented as of this encounter Plan of Treatment Upcoming Encounters Date Type Department Care Team (Late st Contact Info) Description 06/11/2023 8:00 AM CDT Telemedicine Department of Nutrition and Diabetes Education in [place], [place] 200 [place] [phone] Brandon Mendiola APRN, C.N.P., D.N.P. 200 [place] [phone] documented as of this encounter Procedures Procedure Name Priority Date/Time Associated Diagnosis Comments CBC WITH DIFFERENTIAL, B Routine 03/02/2023 2:17 PM REVENUE STAMPER Preanesthetic Medical Exam BASIC METABOLIC PANEL, S/P Routine 03/02/2023 2:17 PM REVENUE STAMPER Preanesthetic Medical Exam documented in this encounter Results * (ABNORMAL) Basic Metabolic Panel (03/02/2023 2:17 PM REVENUE STAMPER) Potassium, S 4.0 3.6 - 5.2 mmol/L 03/02/2023 4:14 PM REVENUE STAMPER DTL Sodium, S 142 135 - 145 mmol/L 03/02/2023 4:14 PM REVENUE STAMPER DTL Chloride, S 100 98 - 107 mmol/L 03/02/2023 4:14 PM REVENUE STAMPER DTL Bicarbonate, S 22 22 - 29 mmol/L 03/02/2023 4:14 PM REVENUE STAMPER DTL Anion Gap 20(H) 7 - 15 03/02/2023 4:14 PM REVENUE STAMPER DTL BUN (Blood Urea Nitrogen), S 7(L) 8 - 24 mg/dL 03/02/2023 4:14 PM REVENUE STAMPER DTL Creatinine 0.89 0.74 - 1.35 mg/dL 03/02/2023 4:14 PM REVENUE STAMPER DTL Estimated GFR (eGFR) >90 >=60 mL/min/BSA 03/02/2023 4:14 PM REVENUE STAMPER DTL Comment: Estimated GFR calculated using the 2020 CKD_EPI creatinine equation. Calcium, Total, S 9.6 8.6 - 10.0 mg/dL 03/02/2023 4:14 PM REVENUE STAMPER DTL Glucose, S 85 70 - 140 mg/dL 03/02/2023 4:14 PM REVENUE STAMPER DTL Blood (Blood, Venous) 03/02/2023 2:17 PM REVENUE STAMPER 03/02/2023 3:06 PM REVENUE STAMPER Desirae Hughes APRN, C.N.P., M.S.N. LAB BL OOD ADD-ON [facility] [address] [place] [address], [facility] DTL [facility] [address] [place] [address] * (ABNORMAL) CBC with Differential, Blood (03/02/2023 2:17 PM REVENUE STAMPER) Hemoglobin 17.5(H) 13.2 - 16.6 g/dL 03/02/2023 2:45 PM REVENUE STAMPER DTL Hematocrit 48.5 38.3 - 48.6 % 03/02/2023 2:45 PM REVENUE STAMPER DTL Erythrocytes 5.79(H) 4.35 - 5.65 x10(12)/L 03/02/2023 2:45 PM REVENUE STAMPER DTL MCV 83.8 78.2 - 97.9 fL 03/02/2023 2:45 PM REVENUE STAMPER DTL RBC Distrib Width 12.9 11.8 - 14.5 % 03/02/2023 2:45 PM REVENUE STAMPER DTL Platelet Count 384(H) 135 - 317 x10(9)/L 03/02/2023 2:45 PM REVENUE STAMPER DTL Leukocytes 11.5(H) 3.4 - 9.6 x10(9)/L 03/02/2023 2:45 PM REVENUE STAMPER DTL Neutrophils 8.26(H) 1.56 - 6.45 x10(9)/L 03/02/2023 2:45 PM REVENUE STAMPER DHPM Lymphocytes 2.56 0.95 - 3.07 x10(9)/L 03/02/2023 2:45 PM REVENUE STAMPER DTL Monocytes 0.45 0.26 - 0.81 x10(9)/L 03/02/2023 2:45 PM REVENUE STAMPER DTL Eosinophils 0.12 0.03 - 0.48 x10(9)/L 03/02/2023 2:45 PM REVENUE STAMPER DTL Basophils 0.10(H) 0.01 - 0.08 x10(9)/L 03/02/2023 2:45 PM REVENUE STAMPER DTL Blood (Blood, Venous) 03/02/2023 2:17 PM REVENUE STAMPER 03/02/2023 2:39 PM REVENUE STAMPER Desirae Hughes APRN, C.N.P., M.S.N. LAB BL OOD ADD-ON [facility] 200 [place] [address], [facility] DTL [facility] [address] [place] [address] [facility] 200 [place] [address] documented in this encounter Visit Diagnoses Diagnosis Preanesthetic Medical Exam documented in this encounter Additional Health Concerns Assessment Noted Time PHQ-9 Depression Total Score: 6 09/29/19 23 11:41 AM CDT documented as of this encounter
--- OUTSIDE RECORDS SUMMARY | 2023-06-08 13:36 | XMS_ITS | Encounter Summary ---
Author Name Unknown Organization [facility] Address [address] [place] [address] Care Team Providers Care Turbine Mechanic Name Role Phone Unavailable Primary Care Provider Unavailabl e Reason for Visit * Outpatient (Routine) - Closed Specialty Diagnoses / Procedures Referred By Serena t Referred To Contact Nutrition Dai Xiong P.A.-C., M.S. [address] [place] [phone] [facility] Referral ID Status Reason Start Date Expiration Date Visits Re quested Visits Authorized [id number] Closed 03/04/2023 03/03/2026 1 1 Encounter Details Date Type Department Care Team (Late st Contact Info) Description 03/26/2023 1:00 PM NURSE CLINICAL Telemedicine Department of Nutrition and Diabetes Education in [place], [place] [address] [place] [phone] Dai Xiong P.A.-C., M.S. [address] [place] [phone] Alexa Álvarez, NATHANIELN, LD [address] [place] [phone] Gastrectomy Partial Status Post (Primary Dx) Social History Tobacco Use Types Packs/Day Years Used Date Smoking Tobacco: Never Smokeless Tobacco: Never Alcohol Use Standard Drinks/Week Comments Never 0 (1 standard drink = 0.6 oz pur e alcohol) [facility] Utilities Answer Date Recorded In the past 12 months has th e [employer], [employer], oil, or water [employer] threatened to shut off services in your [...] your living situation today? I have a [facility] place to live 03/03/2023 Sex and Gender Information Value Date Recorded Sex Assigned at Male 09/11/2022 7:49 AM CDT Gender Identity Male 09/11/2022 7:49 AM CDT Sexual Orientation Straight 09/11/2022 7: 49 AM CDT documented as of this encounter Progress Notes * Alexa Álvarez RDN, LD - 03/26/2023 1:00 PM CST CHIEF COMPLAINT/REASON FOR VISIT Patient s/p sleeve gastrectomy on 03/03/2023 Met with patient. Consult conducted via real-time audio/video technology by Radha Álvarez RDN, LD [facility] to the patient in patient home. ASSESSMENT Nutrition Focused Physical Findings GI Symptoms: None Food/Nutrition Related History Food intake assessment: Texture: Blended foods Food allergies and/or intolerances: None Meals and snacks: 3 meals and 0-1 snacks per day Amount consumed at meal times: 1/2 c Time taken to consume meals: 30 minutes Chewing foods to puree consistency: Yes eating (solids) from drinking (fluids): Yes Fluid intake assessment: Estimated amount: more than 64 oz Sources: Zero sugar Gatorade or POWERade, water, protein shake Protein intake assessment: Estimated amount: 24 gm Sources: Protein shake Alcohol and carbonation intake: None Micronutrient (vitamin/mineral intake): Still needs to purchase multivitamin and D3 supplements, but has been taking Tums for calcium. He has plans for B 12 injection. Physical Activity: Mac Camar[place]ores reports walking throughout his day. Gets restrictions lifted next week. Weight History Ht Readings from Last 1 Encounters: 03/25/23 170.1 cm (18%, Z= -0.93)* * Growth percentiles are based on CDC (Boys, 2-20 Years) data. Wt Readings from Last 1 Encounters: 03/25/23 136 kg (>99%, Z= 3.06)* * Growth percentiles are based on CDC (Boys, 2-20 Years) data. BMI Readings from Last 1 Encounters: 03/25/23 47.00 kg/m?? (>99%, Z= 3.15)* * Growth percentiles are based on CDC (Boys, 2-20 Years) data. Weight Change: 12 kg weight loss. NUTRITION DIAGNOSIS Altered GI function related to previous medically complicated obesity as evidenced by s/p bariatricsurgery. Nutrition Prescription/Recommendation Continue to follow post-bariatric surgery nutrition guidelines INTERVENTION Education: S/P Bariatric Surgery; Weight Control See Patient Education Record for information regarding education materials covered today. MONITORING AND EVALUATION: Nutrition parameter to monitor: Food and beverage intake Desired Outcome: Nutrition adequacy, intake tolerance, and weight loss as expected post-bariatric surgery Patient Goal(s): 1. Continue on blended diet for a total of 4 weeks, soft diet for 6 weeks 2. Eat and drink slowly, chew foods to a pureed consistency, separate eating from drinking by at least 30 minutes before and after meals 3. Strive for at least 60 grams protein and 64 ounces of fluid per day. Drink two protein shakes daily. 4. Continue to take vitamin and mineral supplements as recommended FOLLOW UP PLAN: Follow-up appointment per protocol Time spent with patient (minutes): 15 E CLINICAL documented in this encounter Plan of Treatment Upcoming Encounters Date Type Department Care Team (Late st Contact Info) Description 06/11/2023 8:00 AM CDT Telemedicine Department of Nutrition and Diabetes Education in [place], [place] [address] [place] [phone] Brandon Mendiola APRN, C.N.P., D.N.P. [address] [place] [phone] documented as of this encounter Visit Diagnoses Diagnosis Gastrectomy Partial Status Post- Primary documented in this encounter Additional Health Concerns Assessment Noted Time PHQ-9 Depression Total Score: 6 09/29/19 23 11:41 AM CDT documented as of this encounter
--- OUTSIDE RECORDS SUMMARY | 2023-06-08 13:36 | XMS_ITS | Encounter Summary ---
Author Name Unknown Organization [facility] Address [address] [place] [address] Care Team Providers Care Chief Green Officer Name Role Phone Unavailable Primary Care Provider Unavailabl e Reason for Visit * Outpatient (Routine) - Closed Specialty Diagnoses / Procedures Referred By Serena becker Referred To Contact General Surgery Dai Xiong P.A.-C., M.S. [address] [place] [phone] [facility] Referral ID Status Reason Start Date Expiration Date Visits Re quested Visits Authorized [id number] Closed 03/04/2023 03/03/2026 1 1 Encounter Details Date Type Department Care Team (Latest Contact Info) Description 03/25/2023 2:00 PM MOBILE HEAVY EQUIPMENT OPERATOR Office Visit Division of Metabolic and Abdominal Wall Reconstructive Surgery in [place], [place] [address] [place] [phone] Ramona Gonzalez APRN, C.N.P., D.N.P. [address] [place] [phone] Gastrectomy Partial Status Post (Primary Dx); Follow Up Examination Postoperative Visit Social History Tobacco Use Types Packs/Day Years Used Date Smoking Tobacco: Never Smokeless Tobacco: Never Alcohol Use Standard Drinks/Week Comments Never 0 (1 standard drink = 0.6 oz pur e alcohol) [facility] Utilities Answer Date Recorded In the past 12 months has e electric, gas, oil, or water company threatened to [...] your living situation today? I have a [facility] place to live 03/03/2023 Sex and Gender Information Value Date Recorded Sex Assigned at Male 09/11/2022 7:49 AM CDT Gender Identity Male 09/11/2022 7:49 AM CDT Sexual Orientation Straight 09/11/2022 7: 49 AM CDT documented as of this encounter Last Filed Vital Signs Vital Sign Reading Time Taken Comments Blood Pressure - - Pulse - - Temperature - - Respiratory Rate - - Oxygen Saturation - - Inhaled Oxygen Concentration - - Weight 136 kg (299 lb 13.2 oz) 03/25/2023 1:47 P M MOBILE HEAVY EQUIPMENT OPERATOR Height 170.1 cm (5' 6.97) 03/25/2023 1:47 PM CS T Body Mass Index 47 03/25/2023 1:47 PM MOBILE HEAVY EQUIPMENT OPERATOR documented in this encounter Progress Notes * Ramona Gonzalez APRN, C.N.P., D.N.P. - 03/25/2023 2:00 PM CST SUBJECTIVE CHIEF COMPLAINT/REASON FOR VISIT Post-Operative Visit HISTORY OF PRESENT ILLNESS Mr. Narendra Carolina is a 17 y.o. male who is status post Robotic-assisted sleeve gastrectomy on 03/03/[address] Santana. His weight at the time of surgery was 148 kg. His weight today is 136 kg, with a BMI of 47. He has lost approximately 12 kg. He is taking in around 64 ounces per day, and is getting minimal amounts of protein. He has been tolerating a thin pureed diet, he is not consuming a lot of protein at this time. He has some yogurt, otherwise applesauce, broth, mashed potatoes have been his main rina. He reports no nausea and no vomiting, and denies heartburn and GERD. He denies lightheadedness or dizziness. Stools are normal, at least every other to every third day. He notes thatmood is stable. He has been walking around the home and stores for exercise. Mr. Narendra Carolina has not started his calcium, multivitamin, and vitamin D. He has plans for B12 injections. He denies any NSAID use. He will require a prescription of Actigall today. He denies smoking or alcohol use. Pain is well controlled. Pain education was given. OBJECTIVE PHYSICAL EXAM General: Patient is alert, looks well. Abdomen: Soft, non-tender, obese. incisions are clean and intact. ASSESSMENT / PLAN Problem List Items Addressed This Visit Other Gastrectomy Partial Status Post - Primary Other Visit Diagnoses Follow Up Examination Postoperative Visit Mr. Narendra Carolina is doing well postoperatively. We discussed the operative findings and expected course from this point and expresses understanding. Discussed importance of protein and need to start at least 1 protein shake and 1 protein water daily at this time. He can start soft foods likely next week but should see the dietitian tomorrow to learn more about advancing his diet. He also needs to start his Protonix which was prescribed in the hospital but he has not started this at this time. He should start the Actigall prescription in a few weeks when feeling ready and was given the risks, benefits, and possible complications of the medication. He was instructed to take the medication twice daily for a total of six months, and was instructed to stop the medication if it causes too many GI side effects. If constipation becomes an issue, I have recommended the following: increase hydration, continue walking, can take over the counter MiraLAX, diluted prune juice, milk of magnesium, and use of suppository as needed. He should have a bowel movement at least every three days. Maintenance of adequate hydration and protein intake were encouraged. All questions were answered to his satisfaction. He will contact us if any additional questions or concerns arise. At this point the patient is dismissed from our surgical service. Discussed importance of long-term follow up with endocrinology and recommended of next follow up at 2-3 months. LE HEAVY EQUIPMENT OPERATOR documented in this encounter Plan of Treatment Upcoming Encounters Date Type Department Care Team (Late st Contact Info) Description 06/11/2023 8:00 AM CDT Telemedicine Department of Nutrition and Diabetes Education in [place], [place] [address] [place] [phone] Brandon Mendiola APRN, C.N.P., D.N.P. [address] [place] [phone] documented as of this encounter Visit Diagnoses Diagnosis Gastrectomy Partial Status Post- Primary Follow Up Examination Postoperative Visit documented in this encounter Additional Health Concerns Assessment Noted Time PHQ-9 Depression Total Score: 6 09/29/19 23 11:41 AM CDT documented as of this encounter
--- OUTSIDE RECORDS SUMMARY | 2023-06-08 13:36 | XMS_ITS | Encounter Summary ---
Author Name Unknown Organization [facility] Address [address] [place] [id number] Care Team Providers Care Gravity Manager Name Role Phone Unavailable Primary Care Provider Unavailabl e Reason for Visit * Outpatient (Routine) - Closed Specialty Diagnoses / Procedures Referred By Serena becker Referred To Contact General Surgery Diagnoses Morbid Obesity Body Mass Index 50.0-59.9 Adult (HCC) Ramona Gonzalez APRN, C.N.P., D.N.P. [address] [place] [phone] [facility] Referral ID Status Reason Start Date Expiration Date Visits Re quested Visits Authorized [id number] Closed 02/03/2023 02/03/2024 1 1 Encounter Details Date Type Department Care Team (Latest Contact Info) Description 03/02/2023 1:30 PM ONLINE COMMUNICATIONS SPECIALIST Comprehensive Visit Division of Metabolic and Abdominal Wall Reconstructive Surgery in [place], [place] [address] [place] [phone] Zeus Santana M.D. [address] [place] [phone] Morbid Obesity Body Mass Index 50.0-59.9 Adult (HCC) Social History Tobacco Use Types Packs/Day Years Used Date Smoking Tobacco: Never Smokeless Tobacco: Never Alcohol Use Standard Drinks/Week Comments Never 0 (1 standard drink = 0.6 oz pur e alcohol) [facility] Utilities Answer Date Recorded In the past 12 months has [employer], gas, oil, or water [employer] threatened to shut off services in your [...] Date Recorded Dental: Regular Dentist No 09/12/19 Employment Answer Date Recorded Employment status Employed and actively working without restrictions 09/11/2022 Housing Stability Answer Date Recorded What is your living situation today? I have a [facility] place to live 03/03/2023 Sex and [...] - Inhaled Oxygen Concentration - - Weight 148 kg (326 lb 15.1 oz) 03/02/2023 1:32 P M ONLINE COMMUNICATIONS SPECIALIST Height 171.3 cm (5' 7.44) 03/02/2023 1:32 PM CS T Body Mass Index 50.54 03/02/2023 1:32 PM ONLINE COMMUNICATIONS SPECIALIST documented in this encounter Consult Notes * Zeus Santana M.D. - 03/02/2023 1:30 PM CST Chief Complaint: Medically complicated obesity with consideration for bariatric surgery, Body mass index is 50.54 kg/m??. History of Present Illness: Mac Carolina is a 17 y.o. male that has been evaluated in our multidisciplinary clinic and has been deemed an appropriate candidate for bariatric surgery. Please refer to the previous bariatric surgical consultation note for details regarding full evaluation to date including BMI and weight related co-morbidities. I have reviewed this note and agree with the findings and recommendations. Review of Systems As per HPI, all other review of systems checked and negative. Physical Exam General: Not in distress Abdomen: Central adiposity Extremities: No edema Assessment/Plan: Mac Carolina has expressed interest in bariatric surgery. Patient wants after proper discussion to proceed with sleeve gastrectomy. I would agree that this would be an appropriate bariatric surgical procedure given the BMI category and weight related co-morbidities. There are no contraindications to proceeding. We have discussed the relevant risks of the procedure as well as the implications of these risks including but not limited to staple line leak (requiring reoperation and possibly an intensive care unit stay), hemorrhage, infection, stenosis or stricture, vitamin deficiencies, and venous thromboembol ism. Patient also understands risk of de kermit reflux or exacerbation of preexisting reflux and its possible consequences. The patient has expressed understanding of these risks as well as post-operative dietary modification and supplementation. Informed consent has been obtained. Note that the patient's Mother as well as Dr. Mello (our resident) were present during the whole encounter. NE COMMUNICATIONS SPECIALIST documented in this encounter Plan of Treatment Upcoming Encounters Date Type Department Care Team (Late st Contact Info) Description 06/11/2023 8:00 AM CDT Telemedicine Department of Nutrition and Diabetes Education in [place], [place] [address] [place] [phone] Brandon Mendiola APRN, C.N.P., D.N.P. [address] [place] [phone] documented as of this encounter Visit Diagnoses Diagnosis Morbid Obesity Body Mass Index 50.0-59.9 Adult (HCC) documented in this encounter Additional Health Concerns Assessment Noted Time PHQ-9 Depression Total Score: 6 09/29/19 23 11:41 AM CDT documented as of this encounter
--- OUTSIDE RECORDS SUMMARY | 2023-06-08 13:36 | XMS_ITS | Encounter Summary ---
Author Name Unknown Organization [facility] Address [address] [place] [address] Care Team Providers Care Vending Machine Technician Name Role Phone None Reported, Pcp Primary Care Provider Unavail able Reason for Visit * Reason Comments Abdominal Pain Encounter Details Date Type Department Care Team (Late st Contact Info) Description 04/03/2023 3:23 PM DANCE CHOREOGRAPHER - 04/03/2023 8:[address] [facility] Emergency [facility] Emergency Department [address] [place] [phone] John Seth, P.AMiguel-Laurel. [address] [place] [phone] Abdominal Pain (Primary Dx) Discharge Disposition: Home or Self Care Social History Tobacco Use Types Packs/Day Years Used Date Smoking Tobacco: Never Smokeless Tobacco: Never Alcohol Use Standard Drinks/Week Comments Never 0 (1 standard drink = 0.6 oz pur e alcohol) [facility] Utilities Answer Date Recorded In the past 12 months has e [employer], gas, oil, or water [employer] threatened to shut off services in your [...] your living situation today? I have a [facility] place to live 03/03/2023 Sex and Gender Information Value Date Recorded Sex Assigned at Male 09/11/2022 7:49 AM CDT Gender Identity Male 09/11/2022 7:49 AM CDT Sexual Orientation Straight 09/11/2022 7: 49 AM CDT documented as of this encounter Last Filed Vital Signs Vital Sign Reading Time Taken Comments Blood Pressure 151/84 04/03/2023 8:15 PM DANCE CHOREOGRAPHER Pulse 58 04/03/2023 8:15 PM DANCE CHOREOGRAPHER Temperature 37 ??C (98.6 ??F) 04/03/2023 6:46 PM DANCE CHOREOGRAPHER Respiratory Rate 20 04/03/2023 6:46 PM DANCE CHOREOGRAPHER Oxygen Saturation 100% 04/03/2023 8:15 PM DANCE CHOREOGRAPHER Inhaled Oxygen Concentration - - Weight 134 kg (295 lb 10.2 oz) 04/03/2023 3:27 P M DANCE CHOREOGRAPHER Height - - Body Mass Index 46.35 03/25/2023 1:47 PM DANCE CHOREOGRAPHER documented in this encounter Discharge Instructions * Discharge Instructions* John Seth P.A.-C. - 04/03/2023 7:43 PM DANCE CHOREOGRAPHER Eat frequent smaller meals per day Follow-up with your surgeon if you continue to have abdominal pain E CHOREOGRAPHER * Attachments The following attachments cannot be sent through Care Everywhere. * Abdominal Pain Adult ([place] Islander) documented in this encounter Medications at Time of Discharge [...] bariatric surgery 90 tablet 3 03/25/2023 pediatric lzyzsaqvsdot-hnir-rch erals (FLINTSTONES COMPLETE) chewable tablet Chew 1 tablet 2 (two) times a day. 03/04/2023 SQ 3 ml Injection Kit Use as directed to inject prescribed medication. 1 each 03/04/2023 ursodioL (ACTIGALL) 300 mg capsule Take 1 capsule (300 mg total) by mouth 2 (two) times a day. 180 capsule 1 03/25/2023 09/21/2023 ondansetron (ZOFRAN) 4 mg tablet Take 1 tablet (4 mg total) by mouth every 8 (eight) hours as needed for nausea or vomiting for up to 5 days. 15 tablet 04/03/2023 04/08/2023 documented as of this encounter ED Notes * John Seth P.A.-C. - 04/03/2023 6:59 PM CST SUBJECTIVE CHIEF COMPLAINT/REASON FOR VISIT Abdominal Pain HISTORY OF PRESENT ILLNESS Patient is a 17-year-old male s/p robotic-assisted sleeve gastrectomy on 03/03/2023, ADRIANNE, hypertension presents to the emergency department by private car accompanied by his parents for evaluation of nausea and lower abdominal pain for the past week. Patient reports that he has been recovering well since his surgery, his incisions look well, he has not had any fevers, he has been urinating and having bowel movements. He reports having abdominal pain that has been constant since he started advancing his diet. He reports eating several small full liquid meal per day. He has not noticed increasing pain after eating. He reports tolerating water well, but everything else seems to make him nauseate d History provided by: Patient staff interpreter needed/used: no REVIEW OF SYSTEMS Constitutional: Negative for chills and fever. HENT: Negative for rhinorrhea. Eyes: Negative for redness. Respiratory: Negative for cough and shortness of breath. Cardiovascular: Negative for chest pain and palpitations. Gastrointestinal: Positive for abdominal pain and nausea. Negative for vomiting. Musculoskeletal: Negative for back pain. Skin: Negative for rash. Neurological: Negative for dizziness and light-headedness. Psychiatric/Behavioral: Negative for substance abuse. OBJECTIVE Initial Vitals Temperature 04/03/23 1527 36.6 ??C Pulse Rate 04/03/23 1527 65 Heart Rate -- Resp Rate 04/03/23 1527 23 Blood Pressure 04/03/23 1527 142/78 SpO2 04/03/23 1527 96 % Pain Score 04/03/23 1651 7 PHYSICAL EXAMINATION Constitutional: Nursing note and vitals reviewed. Cardiovascular: Regular rhythm. Pulmonary/Chest: Effort normal and breath sounds normal. Abdominal: Soft. Bowel sounds are normal. There is no abdominal tenderness. Several small surgical incisions that appear well, healing, no erythema or swelling, no drainage Neurological: Alert and oriented to person, place, and time. Skin: Skin is warm and dry. ASSESSMENT/PLAN Assessment and Plan This is a very pleasant 17-year-old male presents to the emergency department for evaluation abdominal pain for 1 week. Patient is status post sleeve gastrectomy 5 weeks ago. Patient is nontoxic appearing, hemodynamically stable. He appears well hydrated and well perfused. Surgical incisions appearwell with no signs of infection, hematoma or seroma. Abdomen is not distended, soft and without peritoneal. Labs were obtained in the waiting room, reviewed and are unremarkable. Given recent surgery and nowhaving abdominal pain, will obtain CT abdomen pelvis with contrast. Will treat pain with ketorolac, nausea with Zofran. Disposition pending ED course and reassessment.. DIFFERENTIAL DIAGNOSES SBO, intra-abdominal hematoma/seroma, abscess among others. I reviewed the following external records: inpatient records. ED Course as of 04/03/231942 Sat Apr 03, [address] Abdomen Pelvis with IV Contrast IMPRESSION: 1. No acute abnormality in the abdomen or pelvis. Specifically, no bowel obstruction. Final Diagnoses: as of 04/03/231942 Abdominal Pain John Seth P.A.-C. 04/03/231944 E CHOREOGRAPHER * Margarita Oakley, RMiguelN. - 04/03/2023 3:29 PM CST Patient is coming in today complaining of abdominal pain that started 1 month ago. He had gastric sleeve surgery then. He stated that for about a week, he has not been able to keep anything down thathe has eaten and has felt a lot of pain in the RLQ of his abdomen. He has been having normal bowel movements. He stated that he has been eating according to the schedule he was given upon discharge an d is able to drink water. Margarita Oakley R.N. 04/03/23 1533 E CHOREOGRAPHER documented in this encounter Plan of Treatment Upcoming Encounters Date Type Department Care Team (Late st Contact Info) Description 06/11/2023 8:00 AM CDT Telemedicine Department of Nutrition and Diabetes Education in [place], [place] [address] [place] [phone] Brandon Mendiola APRN, C.N.P., D.N.P. [address] [place] [phone] documented as of this encounter Procedures Procedure Name Priority Date/Time Associated Diagnosis Comments CT ABDOMEN PELVIS WITH IV CONTRAST RAD - Semiurgent (Fast; most ED patients; some inpatients) 04/03/2023 5:56 PM DANCE CHOREOGRAPHER CBC WITH DIFFERENTIAL, B STAT 04/03/2023 3:51 PM DANCE CHOREOGRAPHER LACTATE, B/P STAT 04/03/2023 3:51 PM DANCE CHOREOGRAPHER BASIC METABOLIC PANEL, S/P STAT 04/03/2023 3:51 PM DANCE CHOREOGRAPHER documented in this encounter Results * CT Abdomen Pelvis with IV Contrast (04/03/2023 5:56 PM DANCE CHOREOGRAPHER) Anatomical Region Laterality Modality Abdomen, Pelvis, Abdominal R ST LOS, Abdominal ARZ LOS, Abdominal FLA LOS N/A Computed Tomograp hy, Computed Tomography 04/03/2023 5:56 PM DANCE CHOREOGRAPHER Impressions 04/03/2023 6:48 PM DANCE CHOREOGRAPHER 1. No acute abnormality in the abdomen or pelvis. Specifically, no bowel obstruction. Narrative 04/03/2023 6:48 PM DANCE CHOREOGRAPHER EXAM: ??CT ABDOMEN PELVIS WITH IV CONTRAST [...] John Seth P.A.-C. IMG CT PROCEDURES * Lactate (04/03/2023 3:51 PM DANCE CHOREOGRAPHER) Lactate, P 1.3 0.5 - 2.2 mmol/L 04/03/2023 4:31 PM DANCE CHOREOGRAPHER STMA Blood (Blood, Venous) 04/03/2023 3:51 PM DANCE CHOREOGRAPHER 04/03/2023 3:58 PM DANCE CHOREOGRAPHER John Seth P.A.-C. LAB BLOOD NON ADD -ON [facility] [address] [place] [address], [facility] STMA [facility] [address] [place] [address] * (ABNORMAL) CBC with Differential, Blood (04/03/2023 3:51 PM DANCE CHOREOGRAPHER) Hemoglobin 16.1 13.2 - 16.6 g/dL 04/03/2023 4:00 PM DANCE CHOREOGRAPHER STMA Hematocrit 45.7 38.3 - 48.6 % 04/03/2023 4:00 PM DANCE CHOREOGRAPHER STMA Erythrocytes 5.46 4.35 - 5.65 x10(12)/L 04/03/2023 4:00 PM DANCE CHOREOGRAPHER STMA MCV 83.7 78.2 - 97.9 fL 04/03/2023 4:00 PM DANCE CHOREOGRAPHER STMA RBC Distrib Width 13.2 11.8 - 14.5 % 04/03/2023 4:00 PM DANCE CHOREOGRAPHER STMA Platelet Count 313 135 - 317 x10(9)/L 04/03/2023 4:00 PM DANCE CHOREOGRAPHER STMA Leukocytes 10.7(H) 3.4 - 9.6 x10(9)/L 04/03/2023 4:00 PM DANCE CHOREOGRAPHER STMA Neutrophils 7.37(H) 1.56 - 6.45 x10(9)/L 04/03/2023 4:00 PM DANCE CHOREOGRAPHER DHPM Lymphocytes 2.57 0.95 - 3.07 x10(9)/L 04/03/2023 4:00 PM DANCE CHOREOGRAPHER STMA Monocytes 0.57 0.26 - 0.81 x10(9)/L 04/03/2023 4:00 PM DANCE CHOREOGRAPHER STMA Eosinophils 0.14 0.03 - 0.48 x10(9)/L 04/03/2023 4:00 PM DANCE CHOREOGRAPHER STMA Basophils 0.07 0.01 - 0.08 x10(9)/L 04/03/2023 4:00 PM DANCE CHOREOGRAPHER STMA Blood (Blood, Venous) 04/03/2023 3:51 PM DANCE CHOREOGRAPHER 04/03/2023 3:57 PM DANCE CHOREOGRAPHER John Seth P.A.-C. LAB BLOOD ADD-ON [facility] [address] [place] [address], [facility] STMA [facility] [address] [place] [address] [facility] 200 [place] [address] * (ABNORMAL) Basic Metabolic Panel (04/03/2023 3:51 PM DANCE CHOREOGRAPHER) Potassium, P 3.5(L) 3.6 - 5.2 mmol/L 04/03/2023 4:36 PM DANCE CHOREOGRAPHER STMA Sodium, P 142 135 - 145 mmol/L 04/03/2023 4:36 PM DANCE CHOREOGRAPHER STMA Chloride, P 100 98 - 107 mmol/L 04/03/2023 4:36 PM DANCE CHOREOGRAPHER STMA Bicarbonate, P 25 22 - 29 mmol/L 04/03/2023 4:36 PM DANCE CHOREOGRAPHER STMA Anion Gap, P 17(H) 7 - 15 04/03/2023 4:36 PM DANCE CHOREOGRAPHER STMA BUN (Blood Urea Nitrogen), P 9 8 - 24 mg/dL 04/03/2023 4:36 PM DANCE CHOREOGRAPHER STMA Creatinine 0.74 0.74 - 1.35 mg/dL 04/03/2023 4:36 PM DANCE CHOREOGRAPHER STMA Estimated GFR (eGFR) >90 >=60 mL/min/BSA 04/03/2023 4:36 PM DANCE CHOREOGRAPHER STMA Comment: Estimated GFR calculated using the 2020 CKD_EPI creatinine equation. Calcium, Total, P 9.8 8.6 - 10.0 mg/dL 04/03/2023 4:36 PM DANCE CHOREOGRAPHER STMA Glucose, P 103 70 - 140 mg/dL 04/03/2023 4:36 PM DANCE CHOREOGRAPHER STMA Blood (Blood, Venous) 04/03/2023 3:51 PM DANCE CHOREOGRAPHER 04/03/2023 3:57 PM DANCE CHOREOGRAPHER John Seth P.A.-C. LAB BLOOD ADD-ON [facility] [address] [place] [address], [facility] STMA [facility] [address] [place] [address] documented in this encounter Visit Diagnoses Diagnosis Abdominal Pain- Primary documented in this encounter Administered Medications Inactive Administered Medications - up to 3 most recent administrations Medication Order MAR Action Action Date Dose Rate Site iohexoL 300 mg iodine/mL solution 1-200 mL (OMNIPAQUE) 1-200 mL, intravenous, Once in imaging, contrast, Starting on 04/03/23 at 1746, For 1 dose, Imaging Protocol Orders, Dose per Radiant Medication Guidelines iohexoL 350 mg iodine/mL solution 1-200 mL (OMNIPAQUE) 1-200 mL, intravenous, Once in imaging, contrast, Starting on 04/03/23 at 1750, For 1 dose Given 04/03/2023 5:51 PM DANCE CHOREOGRAPHER 200 mL ketorolac injection 15 mg (TORADOL) 15 mg, intravenous, Once, On 04/03/23 at 1910, For 1 dose, Adult IV push rate: Over 15 seconds. Peds IV push rate: Over 1 minute. Doses > 15 mg IV/IM are discouraged due to lack of additional analgesic benefit. Given 04/03/2023 7:21 PM DANCE CHOREOGRAPHER 15 mg ondansetron (PF) injection 4 mg (ZOFRAN) 4 mg, intravenous, Once, On 04/03/23 at 1909, For 1 dose Given 04/03/2023 7:20 PM DANCE CHOREOGRAPHER 4 mg sodium chloride (PF) 0.9 % injection 1-100 mL 1-100 mL, intravenous, Once, On 04/03/23 at 1747, For 1 dose, Imaging Protocol Orders, Dose per Radiant Medication Guidelines Given 04/03/2023 5:52 PM DANCE CHOREOGRAPHER 50 mL sodium chloride 0.9 % injection 10 mL 10 mL, intravenous, As needed, line care, Starting on 04/03/23 at 1533, Peripheral Intravenous Catheter and Rapid Infusion Catheter, prior to blood sampling, post blood transfusion or post blood sampling sodium chloride 0.9 % injection 3 mL 3 mL, intravenous, As needed, line care, Starting on 04/03/23 at 1533, Prior to and following infusion and between multiple consecutive infusions: sodium chloride 0.9 % injection sodium chloride 0.9 % injection 3 mL 3 mL, intravenous, Every 12 hours scheduled, First dose on 04/03/23 at 2100, Peripheral Intravenous Catheter and Rapid Infusion Catheter, when no infusion to maintain patency documented in this encounter Active and Recently Administered Medications Times are shown in DANCE CHOREOGRAPHER. Scheduled Medication Order 04/01/2023 04/02/2023 04/03/2023 ketorolac injection 15 mg (TORADOL) (COMPLETED) 15 mg, intravenous, Once, On 04/03/23 at 1910, For 1 dose, Adult IV push rate: Over 15 seconds. Peds IV push rate: Over 1 minute. Doses > 15 mg IV/IM are discouraged due to lack of additional analgesic benefit. 192 (Given - Provid er: Jil Goldstein R.N.) ondansetron (PF) injection 4 mg (ZOFRAN) (COMPLETED) 4 mg, intravenous, Once, On 04/03/23 at 1909, For 1 dose 192 (Given - Provid er: Jil Goldstein R.N.) sodium chloride (PF) 0.9 % injection 1-100 mL (COMPLETED) 1-100 mL, intravenous, Once, On 04/03/23 at 1747, For 1 dose, Imaging Protocol Orders, Dose per Radiant Medication Guidelines 1752 (Given - Provid er: Kadie Mireles, R.N.) sodium chloride 0.9 % injection 3 mL 3 mL, intravenous, Every 12 hours scheduled, First dose on 04/03/23 at 2100, Peripheral Intravenous Catheter and Rapid Infusion Catheter, when no infusion to maintain patency PRN Medication Order 04/01/2023 04/02/2023 04/03/2023 iohexoL 300 mg iodine/mL solution 1-200 mL (OMNIPAQUE) 1-200 mL, intravenous, Once in imaging, contrast, Starting on 04/03/23 at 1746, For 1 dose, Imaging Protocol Orders, Dose per Radiant Medication Guidelines 1750 (Not Given - Pr ovider: Kadie Mireles RMiguelN. - Reason: Order parameters not met) iohexoL 350 mg iodine/mL solution 1-200 mL (OMNIPAQUE) (COMPLETED) 1-200 mL, intravenous, Once in imaging, contrast, Starting on 04/03/23 at 1750, For 1 dose 175 (Given - Provid er: Kadie Mireles, R.N.) sodium chloride 0.9 % injection 10 mL 10 mL, intravenous, As needed, line care, Starting on 04/03/23 at 1533, Peripheral Intravenous Catheter and Rapid Infusion Catheter, prior to blood sampling, post blood transfusion or post blood sampling sodium chloride 0.9 % injection 3 mL 3 mL, intravenous, As needed, line care, Starting on 04/03/23 at 1533, Prior to and following infusion and between multiple consecutive infusions: sodium chloride 0.9 % injection documented in this encounter Additional Health Concerns Assessment Noted Time PHQ-9 Depression Total Score: 6 09/29/19 23 11:41 AM CDT documented as of this encounter Care Teams Vending Machine Technician Relationship Specialty Start Date End Date None Reported, Pcp PCP - General Family Medicine 04/03/23 documented as of this encounter
--- OUTSIDE RECORDS SUMMARY | 2023-06-08 13:36 | XMS_ITS | Encounter Summary ---
Author Name Unknown Organization [facility] Address [address] [place] [address] Care Team Providers Care Drafter Patent Name Role Phone Unavailable Primary Care Provider Unavailabl e Reason for Visit * Auth/Cert (Routine) Specialty Diagnoses / Procedures Referred By Serena t Referred To Contact Diagnoses Morbid (severe) obesity due to excess calories (HCC) Procedures [place] LAP LONGITUDINAL GASTRECTOMY ROBOTIC-ASSISTED SLEEVE GASTRECTOMY Referral ID Status Reason Start Date Expiration Date Visits Re quested Visits Authorized [id number] 1 1 Encounter Details Date Type Department Care Team (Late st Contact Info) Description 03/03/2023 7:00 AM BLADE BALANCER - 03/03/2023 10:16 AM BLADE BALANCER Surgery RST ROMB MAIN OR [address] [place] [phone] Zeus Santana M.D. [address] [place] [phone] ROBOTIC-ASSISTED SLEEVE GASTRECTOMY. Social History Tobacco Use Types Packs/Day Years Used Date Smoking Tobacco: Never Smokeless Tobacco: Never Alcohol Use Standard Drinks/Week Comments Never 0 (1 standard drink = 0.6 oz pur e alcohol) [facility] Utilities Answer Date Recorded In the past [...] your living situation today? I have a [facility] to live 03/03/2023 Sex and Gender Information Value Date Recorded Sex Assigned at Male 09/11/2022 7:49 AM CDT Gender Identity Male 09/11/2022 7:49 AM CDT Sexual Orientation Straight 09/11/2022 7: 49 AM CDT documented as of this encounter Last Filed Vital Signs Vital Sign Reading Time Taken Comments Blood Pressure 152/90 03/03/2023 10:14 AM BLADE BALANCER Pulse 102 03/03/2023 10:15 AM BLADE BALANCER Temperature 35.6 ??C (96.1 ??F) 03/03/2023 10:[address] Respiratory Rate 24 03/03/2023 10:15 AM BLADE BALANCER Oxygen Saturation 97% 03/03/2023 10:15 AM BLADE BALANCER Inhaled Oxygen Concentration - - Weight 148 kg (326 lb 4.5 oz) 03/03/2023 6:01 AM BLADE BALANCER Height 173 cm (5' 8.11) 03/03/2023 6:01 AM BLADE BALANCER Body Mass Index 49.45 03/03/2023 6:01 AM BLADE BALANCER documented in this encounter Discharge Summaries * Jose Luis Carolina P.A.-C., M.S. - 03/05/2023 11:24 AM CST DISCHARGE SUMMARY BRIEF OVERVIEW Hospital: [facility] Discharge Provider: Zeus Santana M.D. Primary Team: [facility] General Surgery - [facility] Admission Date: 03/03/2023 Discharge Date: 03/05/2023 PRINCIPAL DIAGNOSIS Morbid Obesity Body Mass Index 45.0-49.9 Adult (HCC) SECONDARY DIAGNOSES Principal Problem: Morbid Obesity Body Mass Index 45.0-49.9 Adult (HCC) Active Problems: Hypertension Essential Primary Obstructive Sleep Apnea Adult Surgery Bariatric Status Post Resolved Problems: * No resolved hospital problems. * Surgery Information This Encounter Past Procedures (03/05/2022 to Today) Date Procedures Providers Loc / Dept 03/03/2023 ROBOTIC-ASSISTED SLEEVE GASTRECTOMY. Zeus Santana M.D.Mirande, Maxwell D, D.O.Seletska, Alina V., M.D. [facility] ROMB OR DISCHARGE DISPOSITION Home or Self Care [1] OUTPATIENT FOLLOW UP Scheduled Appointments 03/19/2023 3:00 PM Kadie Miller M.S., L.P.C.C. Psychiatry and Psychology 04/07/2023 2:30 PM Randal Campoverde APRN, C.N.P., M.S.N. Sleep Medicine For appointment details refer to your Patient Appointment Guide. TEST RESULTS PENDING AT DISCHARGE Pending Labs Order Current Status Surgical Pathology, Frozen Lab In process DETAILS OF HOSPITAL STAY REASON FOR ADMISSION Morbid Obesity Body Mass Index 50.0-59.9 Adult ([facility]) Surgery Bariatric Status Post HOSPITAL COURSE Obesity secondary to caloric intake/expenditure mismatch (Body mass index is 49.45 kg/m??.); statuspost Robotic-assisted sleeve gastrectomy on 03/03/2023. The patient was admitted to [facility]. His weight at the time of admission was 148 kg. The patient was taken to the operating room where they underwent the above procedure. The patient tolerated the procedure well. After a brief stay in the postanesthesia care unit, the patient was transferred to the general surgical floor. Throughout the hospitalization, pain was well managed with IV and oral pain medications. At the time of discharge, the patient was toleratinga bariatric clear liquid diet, and pain was controlled on oral pain medication alone. The patient's diet was advanced as tolerated and in accordance with the bariatric protocol. He is currently on a bariatric clear liquid diet. The patient was seen by the utility bill collection clerk during the hospitalization and is comfortable with diet instructions. He was given a vitamin B12 injection prior to dismissal and taught to self-inject. OPERATIVE PROCEDURE Robotic assisted sleeve gastrectomy CHRONIC CONDITIONS Hypertension Essential Primary Obstructive Sleep Apnea Adult Tuberculosis Latent Chronic conditions were stable throughout the hospitalization. The patient's home medications were restarted as indicated. CONSULTS ORDERED DURING THIS ADMISSION IP CONSULT TO DIETITIAN IP CONSULT TO DIETITIAN CONDITION AT DISCHARGE stable Discharge instructions were provided to the patient and caregiver(s). Total time spent in discharge services today: >30 minutes. E BALANCER documented in this encounter Discharge Instructions * Attachments The following attachments cannot be sent through Care Everywhere. * Acetaminophen (By mouth) (Pakistani) * Antacid, Calcium Containing (By mouth) (Pakistani) * Cholecalciferol (By mouth) (Pakistani) * Cyanocobalamin (Vitamin B-12) (By injection) (Pakistani) * Enoxaparin (By injection) (Pakistani) * Oxycodone, Rapid Release (By mouth) (Pakistani) * Pantoprazole (By mouth) (Pakistani) * Vitamin Combination with Iron, Pediatric Formula (By mouth) (Pakistani) documented in this encounter Medications at Time [...] (thirty) days. 3 mL 3 04/03/2023 pediatric ddgvkusivouq-euen-vrpz rals ([employer] COMPLETE) chewable tablet Chew 1 tablet 2 (two) times a day. 03/04/2023 SQ 3 ml Injection Kit Use as directed to inject prescribed medication. 1 each 03/04/2023 enoxaparin (LOVENOX) 60 mg/0.6 mL injection [...] 03/04/2023 03/25/2023 documented as of this encounter Progress Notes * Tashia Baron RDN - 03/05/2023 11:35 AM CST DESCRIPTION Follow-up visit after bariatric education on 03/04. ASSESSMENT Pt was drinking fluids at time of visit. RN notes he needs to drink more before he can dismiss. RDNstopped by to see if he had any questions regarding diet for home after education session yesterday. He stated he did not. RDN re-emphasized clear liquid phase and hydration. He states he likes Gatorade and will use this at home the first week. Weight since admission: Height: 173 cm Admission Weight: (!) 148 kg (03/03/2023) Current Weight: (!) 148 kg [place] Body Weight (Calculated) : 68.4 kg BMI (Calculated): 49.5 kg/m?? ASPEN Criteria Malnutrition Status: No PLAN None at this time. For questions about patient's nutritional care please contact pager [phone] on weekdays or [phone] on weekends/holidays. E BALANCER * Aarti Thomas M.D. - 03/05/2023 6:29 AM CST SUBJECTIVE 2 Day Post-Op s/p robotic sleeve gastrectomy. No acute events overnight, oral intake improved to 660 cc from 70 cc the day prior. His tachycardiaalso resolved with HR mostly in the 70's-80's. Remains hypertensive in 160's/90's which appears to be his baseline based on records, no home medication. Pain is well controlled, patient was non-tender on examination this morning. Encouraged patient to ambulate and keep up with the oral intake. OBJECTIVE Vitals Blood Pressure: (!) 163/94, Pulse Rate: (!) 58, Resp Rate: 20, Temperature: 36.7 ??C, SpO2: 96 % Intake/Output Summary (Last 24 hours) at 03/05/2023 0630 Last data filed at 03/05/2023 0035 Gross per 24 hour Intake 2521.67 ml Output 1400 ml Net 1121.67 ml Constitutional Appearance: He is well-developed. Cardiovascular Rate and Rhythm: Normal rate. Patient is tachycardic. Pulmonary Effort: Pulmonary effort is normal. No respiratory distress. Abdominal General: Abdomen is protuberant. Palpations: Abdomen is soft. Tenderness: There is no abdominal tenderness. There is no guarding or rebound. There is expected incisional tenderness. Comments: Incisions closed, no drainage or erythema. Neurological Mental Status: He is alert. ASSESSMENT / PLAN #1 Morbid Obesity Body Mass Index 50.0-59.9 Adult ([facility]) #2 Hypertension Essential Primary #3 Obstructive Sleep Apnea Adult Mac Carolina is a 17 year old male with morbid obesity 2 Days Post- Op s/p Robotic-assisted sleeve gastrectomy. Overall doing well, oral intake improved from 70 to 660 cc, encouraging to increase intake to at least 1 L of fluids. Pain control well controlled with oral regiment, patient encouraged to take scheduled Tylenol to stay on top of pain control. Anticipate discharging patient home today once his parents arrive if he continues to increase oral intake. - Encouraged to take his tylenol scheduled in the first 72 hours post surgery, ordered a Lidoderm patch and Robaxin PRN - Educational Audiologist consult for post bariatric surgery patient education - Discharge with 60 mg Lovenox for 2 weeks when medically ready Patient care was discussed with Dr. Santana. Patient is being cared for by Dr. Santana's service, if you have any questions or concerns, please page [phone]. E BALANCER * Aarti Thomas M.D. - 03/04/2023 6:44 AM CST SUBJECTIVE 1 Day Post-Op after robotic sleeve gastrectomy, patient was tachycardic and hypertensive overnight,of note, patient has essential hypertension at baseline and received minimal pain medication (last charted pain medication was Tylenol at 6 PM). Minimal PO intake at 70 cc since surgery, tolerating with no nausea or vomiting. Reports ambulating and voiding independently. Encouraged to increase oralintake and discussed about taking medication to better control his pain. OBJECTIVE Vitals Height: 173 cm, Weight: (!) 148 kg, BMI (Calculated): 49.5 kg/m??, Blood Pressure: (!) 165/107, Heart Rate: 106, Pulse Rate: (!) 111, Resp Rate: 21, Temperature: 37 ??C, SpO2: 96 % Intake/Output Summary (Last 24 hours) at 03/04/2023 0723 Last data filed at 03/04/2023 0557 Gross per 24 hour Intake 3772.37 ml Output 1620 ml Net 2152.37 ml Constitutional Appearance: He is well-developed. Cardiovascular Rate and Rhythm: Patient is tachycardic. Pulmonary Effort: Pulmonary effort is normal. No respiratory distress. Abdominal General: Abdomen is protuberant. Palpations: Abdomen is soft. There is expected incisional tenderness. Comments: Incisions closed, no drainage or erythema. Neurological Mental Status: He is alert. ASSESSMENT / PLAN #1 Morbid Obesity Body Mass Index 50.0-59.9 Adult (HCC) #2 Hypertension Essential Primary #3 Obstructive Sleep Apnea Adult Mac Carolina is a 17 year old male with morbid obesity 1 Day Post-Op s/p Robotic-assisted sleeve gastrectomy. Since surgery patient has minimal PO intake, at 70 cc, with tachycardia to 116 and hypertension to 169/107. Will need to increase oral intake with resolution of tachycardia prior to discharge. - Better pain control, encouraged to take his tylenol, ordered a Lidoderm patch and Robaxin PRN - CBC check this morning - Vitamin B12 injection - Educational Audiologist consult - Discharge with 60 mg Lovenox for 2 weeks when medically ready Patient was seen and care discussed with Dr. Santana this morning. Patient is being cared for by Dr. Santana's service, if you have any questions or concerns, please page [phone]. E BALANCER * Daljit Sandoval, Pharm.D., R.Ph. - 03/03/2023 10:20 AM CST Admission Medication History Note Adherence issues: No concerns Medication list source: Patient Medication related information: none Prior to Admission Medications Med List Status: Pharmacy/RN Complete Set By: Danyell Anaya R.N. at 03/03/2023 5:57 AM No medications reported. E BALANCER * Keanu Garcia - 03/03/2023 7:00 AM CST [facility] Spiritual Care Progress Note Patient: Mac Carolina Age:17 y.o. Location: ROMB MAIN ORROMB OR POOL ROOM/ROMB OR POOL Reason(s) for encounter: Spiritual Care contact to introduce spiritual care service and assess for potential spiritual care needs. Summary: I was able to meet with Mac Carolina prior to surgery. Roman Catholic Identification / Spiritual Practices: Scientologist. Spiritual Needs and/or Concerns: No spiritual needs at this time. Spiritual Care interventions: Introduced the role as member of the interdisciplinary care team and assessed spiritual care needs/concerns of patient and/or family Spiritual Care outcomes: Patient/family became familiar with the role of spiritual care provider and identified spiritual care needs. Spiritual Care Plan / Recommendations: Will remain available for spiritual care as needed or requested. Chaplains can be contacted by paging [phone] ([place]) or [phone] ([place]). E BALANCER documented in this encounter Consult Notes * Olga Wang RDN, VIOLA - 03/04/2023 10:54 AM CSTAssociated Order(s): IP CONSULT TO DIETITIAN; IP CONSULT TO DIETITIAN Clinical Nutrition: Education/Counseling DESCRIPTION Mr. Narendra Carolina is being seen for bariatric diet education. He is s/p a robotic sleeve gastrectomy 03/03/23. ASSESSMENT Patient receptive to diet education, all questions answered at this time. See education activity for details. PLAN If patient remains hospitalized, will provide nutrition assessment per departmental guidelines. For questions about patient's nutritional care please contact pager [phone] on weekdays 07:30-16:00 or [phone] on weekends/holidays. E BALANCER documented in this encounter Nursing Notes * Marcelina Marquis, R.N. - 03/05/2023 1:41 PM CST Shift Goals: Clinical Goals for the Shift: Patient will have adequate fluid intake and will ambulate x3 in this shift. Identify possible barriers to meeting goals/advancing plan of care: none End of Shift Summary: Patient ambulated 2X and drank 90ml/hour. Problem: SAFETY ADULT Goal: Maintain a safe environment Outcome: Adequate for Discharge Problem: SAFETY ADULT - RISK FOR FALL AND OR FALL INJURY Goal: Patient remains free from fall/fall injury Outcome: Adequate for Discharge Problem: PAIN - ADULT Goal: PT VERBALIZES/DEMONSTRATES ADEQUATE COMFORT LEVEL OR BASELINE Outcome: Adequate for Discharge Problem: KNOWLEDGE DEFICIT Goal: Patient/family/caregiver demonstrates understanding of disease process, treatment plan, medications, and discharge instructions Outcome: Adequate for Discharge Problem: INFECTION - ADULT Goal: Absence of infection during hospitalization Outcome: Adequate for Discharge Problem: SKIN/TISSUE INTEGRITY Goal: Skin/Tissue integrity maintained or improved Outcome: Adequate for Discharge Goal: Oral and Nasal mucous membranes remain intact Outcome: Adequate for Discharge Problem: DISCHARGE PLANNING Goal: Patient discharge needs identified Outcome: Adequate for Discharge E BALANCER documented in this encounter OR Notes * Op Note - Zeus Santana M.D. - 03/03/2023 8:11 AM CST Pre-op Diagnosis Morbid Obesity Body Mass Index 50.0-59.9 Adult (HCC) Post-op Diagnosis Morbid Obesity Body Mass Index 50.0-59.9 Adult (HCC) A camp assistant was needed for one or more of the following: camera handling, instrument exchange, exposure as well as helping finish the case safely and expeditiously. Indication of Procedure This is a very pleasant patient who presented to the clinic for evaluation of morbid obesity and obesity related comorbidities. Due to the comorbidities as well as high body mass index (BMI), a sleeve gastrectomy was offered. Patient understands the risks, benefits, and possible complications of above procedures including de kermit or worsening of pre-existing reflux, bleeding, infection, stenosis,leak and consented for the procedure. Procedure in Detail The patient was taken back to the operating room, placed in supine position on the operating room table. General anesthesia by the anesthesia team. Scrubbing and draping in the usual sterile fashion.A timeout was performed including all members of the operating room team in which the patient's identity, procedure being performed, laterality, the antibiotics and heparin had been administered wereverified. The operation was initiated by getting access to the abdominal cavity through a left upper Veres needle. Pneumoperitoneum was achieved. Upon entering of the abdominal cavity, we inspected the area for any bleeding or injury and neither of which were noted. We then proceeded with placing all other trocars in the regular positions. Robot was docked. After which, we identified the pylorus. We did move about 4 cm away from the pylorus and then opened the lesser sac and took down the greater curvature vessels with the use of the vessel sealer. Thiswas done without any problem. Again, we started at 4 cm proximal to the pylorus and headed towards the body of the stomach as well as the proximal fundus and angle of His. This angle of His was reached and all the short gastric vessels were taken down meticulously. The left jef was exposed and we made sure there exists no evidence of hiatal hernia. At this point, we did pass a ViSiGi (40-Bulgarian) into the stomach. It went down from the mouth into the esophagus down into the stomach and down to the pylorus. We then used this as a calibration to start stapling and tailoring our sleeve. We started tailoring our sleeve using a black load with buttress. Our initial point of trimming andtailoring of the sleeve started to 4 cm proximal to the pylorus and towards the stomach body. We made sure not to narrow the stomach at the level of the incisura. We then fired the stapler and we were close to the ViSiGi, however, we made sure not to narrow the sleeve. We did afterwards multiple firings of blue loads protected with a buttress lining. The last staple at the angle of His was about 0.5 cm away from the esophagus so that we do not cause any injury to the esophagus. Few clips and stitch has to be placed on staple line distally to control oozing. Once this was done, we did inspect the staple line and there existed no evidence of bleeding or leak. The staple line was not tortuous or twisted. We then removed the specimen at the site of the 12-mm trocar in the right upper quadrant. That sitewas then irrigated and closed with PDS transfascial sutures x2. After which, we did remove our trocars under direct vision without any issues. Note, that no port site bleeding was noted. At the end of the procedure, all instrument, needle and sponge counts were correct. The patient tolerated the procedure well. TPR 2 Surgeon present from incision till closure. Zeus Santana M.D. E BALANCER * Brief Op Note - William Adams D.O. - 03/03/2023 8:11 AM CST Pre-op Diagnosis Morbid Obesity Body Mass Index 50.0-59.9 Adult (HCC) Post-op Diagnosis Morbid Obesity Body Mass Index 50.0-59.9 Adult (HCC) Findings Robotic-assisted sleeve gastrectomy Complications None Max Jake Adams E BALANCER documented in this encounter Miscellaneous Notes * Hospital Course - Jose Luis Carolina P.A.-C., M.S. - 03/03/2023 1:36 PM BLADE BALANCER Obesity secondary to caloric intake/expenditure mismatch (Body mass index is 49.45 kg/m??.); statuspost Robotic-assisted sleeve gastrectomy on 03/03/2023. The patient was admitted to [facility]. His weight at the time of admission was 148 kg. The patient was taken to the operating room where they underwent the above procedure. The patient tolerated the procedure well. After a brief stay in the postanesthesia care unit, the patient was transferred to the general surgical floor. Throughout the hospitalization, pain was well managed with IV and oral pain medications. At the time of discharge, the patient was toleratinga bariatric clear liquid diet, and pain was controlled on oral pain medication alone. The patient's diet was advanced as tolerated and in accordance with the bariatric protocol. He is currently on a bariatric clear liquid diet. The patient was seen by the utility bill collection clerk during the hospitalization and is comfortable with diet instructions. He was given a vitamin B12 injection prior to dismissal and taught to self-inject. OPERATIVE PROCEDURE Robotic assisted sleeve gastrectomy CHRONIC CONDITIONS Hypertension Essential Primary Obstructive Sleep Apnea Adult Tuberculosis Latent Chronic conditions were stable throughout the hospitalization. The patient's home medications were restarted as indicated. E BALANCER documented in this encounter Plan of Treatment Upcoming Encounters Date Type Department Care Team (Late st Contact Info) Description 06/11/2023 8:00 AM CDT Telemedicine Department of Nutrition and Diabetes Education in [place], [place] [address] [place] [phone] Brandon Mendiola APRN, C.N.P., D.N.P. [address] [place] [phone] Scheduled Referrals Name Type Priority Associated Diagnoses Orde r Schedule General Surgery Post Op (clinic) Outpatient Referral Routine Expected: 03/25/2023 (Approximate), Expires: 06/02/2024 Nutrition office visit (clinic) Outpatient Referral Routine Expected: 03/25/2023 (Approximate), Expires: 06/02/2024 documented as of this encounter Procedures Procedure Name Priority Date/Time Associated Diagnosis Comments REMOTE OXIMETRY MONITORING CONT. Routine 03/04/2023 8:01 AM BLADE BALANCER CBC WITHOUT DIFFERENTIAL, B Timed 03/04/2023 7:35 AM BLADE BALANCER REMOTE OXIMETRY MONITORING CONT. Routine 03/03/2023 8:01 PM BLADE BALANCER REMOTE OXIMETRY MONITORING CONT. Routine 03/03/2023 12:13 PM BLADE BALANCER REMOTE OXIMETRY MONITORING CONT. Routine 03/03/2023 12:13 PM BLADE BALANCER REMOTE OXIMETRY MONITORING CONT. Routine 03/03/2023 12:13 PM BLADE BALANCER SURGICAL PATHOLOGY, [facility] LAB Routine 03/03/2023 9:26 AM BLADE BALANCER Morbid Obesity Body Mass Index 50.0-59.9 Adult (HCC) ROBOTIC-ASSISTED SLEEVE GASTRECTOMY 03/03/2023 7:00 AM BLADE BALANCER Morbid Obesity Body Mass Index 50.0-59.9 Adult (HCC) Case Notes Ukrainian intrp needed documented in this encounter Results * (ABNORMAL) CBC without Differential (03/04/2023 7:35 AM BLADE BALANCER) Hemoglobin 15.7 13.2 - 16.6 g/dL 03/04/2023 8:12 AM BLADE BALANCER DTL Hematocrit 44.0 38.3 - 48.6 % 03/04/2023 8:12 AM BLADE BALANCER DTL Erythrocytes 5.16 4.35 - 5.65 x10(12)/L 03/04/2023 8:12 AM BLADE BALANCER DTL MCV 85.3 78.2 - 97.9 fL 03/04/2023 8:12 AM BLADE BALANCER DTL RBC Distrib Width 13.0 11.8 - 14.5 % 03/04/2023 8:12 AM BLADE BALANCER DTL Platelet Count 376(H) 135 - 317 x10(9)/L 03/04/2023 8:12 AM BLADE BALANCER DTL Leukocytes 11.2(H) 3.4 - 9.6 x10(9)/L 03/04/2023 8:12 AM BLADE BALANCER DTL Blood (Blood, Venous) 03/04/2023 7:35 AM BLADE BALANCER 03/04/2023 8:03 AM BLADE BALANCER William Adams D.[place]. [place] [address], [facility] [address] [place] [address] * Surgical Pathology, Frozen Lab (03/03/2023 9:26 AM BLADE BALANCER) 03/05/2023 2:18 PM BLADE BALANCER STMA Report electronically signed by Alexander Sandoval M.D., Ph.D. I verify that I have examined all relevant slides/material s for the specimen(s) and rendered or confirmed the diagnosis. 03/05/2023 2:18 PM BLADE BALANCER STMA Gross Description A. ??Received fresh labeled greater curvature stomach is a 20.5 x 4.5 x 2 cm portion of stomach. ??The mucosa is unremarkable with normal folds, without mass or ulcers. Bead Picker tissue submitted for permanent sections. Grossed by Vaishnavi Fernando., Ph.D.-Pathology Resident. 03/05/2023 2:18 PM BLADE BALANCER STMA Block Summary A Greater curvature stomach A1 Greater curvature stomach 03/05/2023 2:18 PM BLADE BALANCER STMA Interpretation FINAL DIAGNOSIS A. ??Stomach, greater curvature, sleeve gastrectomy: Portion of benign stomach. ??No Helicobacter pylori. Digital imaging was used in the diagnostic assessment of this case . 03/05/2023 2:18 PM BLADE BALANCER STMA Tissue (Stomach) 03/03/2023 9:26 AM BLADE BALANCER Zeus Santana M.D. LAB SURG PATH ORDERA BLES Performing Organization Address City/State/[facility] Co de Phone Number [facility] [facility] [address] [place] [address], [facility] [address] [place] [address] documented in this encounter Visit Diagnoses Diagnosis Morbid Obesity Body Mass Index 50.0-59.9 Adult (HCC) Morbid Obesity Body Mass Index 50.0-59.9 Adult (HCC) documented in this encounter Admitting Diagnoses Diagnosis Surgery Bariatric Status Post documented in this encounter Administered Medications Inactive Administered Medications - up to 3 most recent administrations Medication Order MAR Action Action Date Dose Rate Site acetaminophen tablet 1,000 mg (TYLENOL) 1,000 mg, oral, Every 6 hours, First dose on Wed03/03/23 at 1230, Start when able to take PO. Crush tablets if needed. Given 03/05/2023 12:50 PM BLADE BALANCER 1,000 mg Given 03/05/2023 12:29 AM BLADE BALANCER 1,000 mg Given 03/04/2023 1:11 PM BLADE BALANCER 1,000 mg enoxaparin injection 60 mg (LOVENOX) 60 mg, subcutaneous, Daily, First dose on [place] 03/04/23 at 0900 Given 03/05/2023 9:06 AM BLADE BALANCER 60 mg Left Upper Arm (Back ) Given 03/04/2023 8:45 AM BLADE BALANCER 60 mg Ri ght Outer Thigh HYDROmorphone (PF) injection 0.2 mg (DILAUDID) 0.2 mg, intravenous, Every 2 hour PRN, severe pain or score 7-10 of 10, moderate pain or score 4-6 of 10, Starting on Wed03/03/23 at 1651 Lactated Ringer's 100 mL/hr, intravenous, Continuous, Starting on Wed03/03/23 at 1230 New Bag 03/05/2023 9:18 AM BLADE BALANCER 100 mL/hr 100 mL/hr New Bag 03/05/2023 12:34 AM BLADE BALANCER 100 mL/hr 100 mL/hr New Bag 03/04/2023 4:03 PM BLADE BALANCER 100 mL/hr 100 mL/hr lidocaine 5 % 1 patch (LIDODERM) 1 patch, transdermal, Administer over 12 Hours, Daily, First dose on Wed03/04/23 at 0900, Remove after 12 hours. Medication Applied 03/05/2023 9:05 AM BLADE BALANCER 1 patch Right Lower Abdomen Medication Applied 03/04/2023 8:45 AM BLADE BALANCER 1 patch Left Lower Abdomen lidocaine-BUPivacaine 1%-0.25% infiltration injection 30 mL 30 mL, infiltration, Once in surgery, OR use only, Starting on Wed03/03/23 at 0656, For 1 dose, Intra-Op, Not for IV use Given 03/03/2023 9:44 AM BLADE BALANCER 30 mL Abdom inal Tissue methocarbamoL tablet 750 mg (ROBAXIN) 750 mg, oral, Every 6 hours PRN, muscle spasms, Starting on Wed03/04/23 at 0643 Given 03/04/2023 10:47 AM BLADE BALANCER 750 mg oxyCODONE IR tablet 10 mg (ROXICODONE) 10 mg, oral, Every 4 hours PRN, severe pain or score 7-10 of 10, Starting on Wed03/03/23 at 1213, Administer for pain unrelieved by non-opioid medications Given 03/05/2023 12:51 PM BLADE BALANCER 10 mg Given 03/05/2023 12:29 AM BLADE BALANCER 10 mg Given 03/04/2023 7:40 PM BLADE BALANCER 10 mg oxyCODONE IR tablet 5 mg (ROXICODONE) 5 mg, oral, Every 4 hours PRN, moderate pain or score 4-6 of 10, Starting on Wed03/03/23 at 1213, Administer for pain unrelieved by non-opioid medications pantoprazole injection 40 mg (PROTONIX) 40 mg, intravenous, Every 24 hours scheduled, First dose (after last modification) on Wed03/03/23 at 1200, Administer IV push over 2 minutes. Add 10 mL NS to 40 mg vial for a final concentration of 4 mg/mL. Given 03/05/2023 9:05 AM BLADE BALANCER 40 mg Given 03/04/2023 8:45 AM BLADE BALANCER 40 mg Given 03/03/2023 2:50 PM BLADE BALANCER 40 mg documented in this encounter Active and Recently Administered Medications Times are shown in BLADE BALANCER. 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 Crush tablets if needed. 1344 (Not Given - Provider: Jake Bautista RMiguelN. - Reason: Patient/family refused)1812 (Given - Provider: Jake Bautista RMiguelN.) 0021 (Not Given - Provider: Deborah Chan RMiguelN. - Reason: Patient/family refused)0557 (Given - Provider: Deborah Chan RMiguelN.)1311 (Given - Provider: Diandra Duron RMiguelN.)1844 (Not Given - Provider: Jake Bautista RMiguelN. - Reason: Other - Comment: pt did not finish afternoon dose yet) 0029 (Given - Provider: Lucie Jacobson RMiguelNMiguel)0623 (Not Given - Provider: Shobha TrujilloNMiguel - Reason: Other - Comment: pt still working on midnight dose)1250 (Given - Provider: Marcelina Marquis RMiguelNMiguel) ceFAZolin injection 3,000 mg (ANCEF) (COMPLETED) 3,000 mg (rounded from 4,000 mg = 25 mg/kg ? 160 kg), intravenous, Once, On Wed03/03/23 at 0715, For 1 dose, Intra-Op, Administer within 1 hour prior to surgical incision If needed, reconstitute vial per package insert instructions. See IVAG for administration guidelines., Drug Monitoring Program: Pharmacist to adjust medication dosing based on indication and drug clearance factors., Indications: Prophylaxis, surgical 0802 (Given - Provider: Chanda Mcintyre APRN, CRNA) cyanocobalamin 1,000 mcg/mL injection 1,000 mcg (VITAMIN B12) (COMPLETED) 1,000 mcg, subcutaneous, Once, On Wed03/04/23 at 0900, For 1 dose, Prior to discharge 0845 (Given - Provider: Jake Bautista R.N.) enoxaparin injection 60 mg (LOVENOX) 60 mg, subcutaneous, Daily, First dose on Wed03/04/23 at 0900 0845 (Given - Provider: Jake Bautista R.N.) 0906 (Given - Provider: Marcelina Marquis R.N.) heparin (porcine) injection 5,000 Units (CANCELED) 5,000 Units, subcutaneous, Every 8 hours scheduled, First dose on Wed03/03/23 at 2200 2141 (Given - Provider: Deborah Chan R.N.) 0557 (Given - Provider: Deborah Chan R.N.) heparin (porcine) injection 5,000 Units (COMPLETED) 5,000 Units, subcutaneous, Once, On Wed03/03/23 at 0715, For 1 dose, Intra-Op, Administer prior to induction of anesthesia. 0808 (Given - Provider: Chanda Mcintyre APRN, SLIME) lidocaine 5 % 1 patch (LIDODERM) 1 patch, transdermal, Administer over 12 Hours, Daily, First dose on Wed03/04/23 at 0900, Remove after 12 hours. 0845 (Medication Applied - Provider: Jake Bautista R.N.)2012 (Medication Removed - Provider: Lucie Jacobson R.N.) 0905 (Medication Applied - Provider: Marcelina Marquis R.N.)1404 (Due: Medication Removed - Provider: Discharge Provider, Automatic - Comment: Time automatically adjusted from order being discontinued) pantoprazole injection 40 mg (PROTONIX) 40 mg, intravenous, Every 24 hours scheduled, First dose (after last modification) on Wed03/03/23 at 1200, Administer IV push over 2 minutes. Add 10 mL NS to 40 mg vial for a final concentration of 4 mg/mL. 1450 (Given - Provider: Jake Bautista R.N.) 0845 (Given - Provider: Jake Bautista R.N.) 0905 (Given - Provider: Marcelina Marquis R.N.) scopolamine base 1 mg over 3 days 1 patch (TRANSDERM SCOP) 1 patch, transdermal, Administer over 24 Hours, Every 72 hours, First dose on Wed03/03/23 at 0700, For 1 dose, Pre-Op, Contains 1.5 mg to deliver 1 mg/72 hours. 1343 (Not Given - Provider: Jake Bautista R.N. - Reason: Other) Continuous Medication Order 03/03/2023 03/04/2023 03/05/2023 Lactated Ringer's 100 mL/hr, intravenous, Continuous, Starting on Wed03/03/23 at 1230 1220 (Continued from OR - Provider: Jake Bautista R.N.)2034 (New Bag - Provider: Deborah Chan R.N.) 0557 (New Bag - Provider: Deborah Chan R.N.)1603 (New Bag - Provider: Jake Bautista R.N.) 0034 (New Bag - Provider: Lucie Jacobson R.N.)0918 (New Bag - Provider: Marcelina Marquis RMiguelNMiguel) PRN Medication Order 03/03/2023 03/04/2023 03/05/2023 diphenhydrAMINE injection 25 mg (BENADRYL) 25 mg, intravenous, Every 6 hours PRN, itching, Starting on Wed03/03/23 at 1213 fentaNYL injection 25 mcg (SUBLIMAZE) (CANCELED) 25 mcg, intravenous, Every 2 min PRN, For pain 4 or greater (maximum 100 mcg). If max dose of Fentanyl is reached and if pain is greater than 4, discontinue Fentanyl: give Hydromorphone, Starting on Wed03/03/23 at 1024, PACU (only) 1027 (Given - Provider: Rosemarie Montez R.N.)1040 (Given - Provider: Rosemarie Montez R.N.)1042 (Given - Provider: Rosemarie Montez R.N.)1050 (Given - Provider: Rosemarie Montez R.N.) HYDROmorphone (PF) injection 0.2 mg (DILAUDID) (CANCELED) 0.2 mg, intravenous, Every 5 min PRN, moderate pain or score 4-6 of 10, severe pain or score 7-10 of 10, Starting on Wed03/03/23 at 1024, PACU (only), Up to maximum total dose of 2 mg 1122 (Given - Provider: Rosemarie Montez R.N.) HYDROmorphone (PF) injection 0.2 mg (DILAUDID) 0.2 mg, intravenous, Every 2 hour PRN, severe pain or score 7-10 of 10, moderate pain or score 4-6 of 10, Starting on Wed03/03/23 at 1651 lidocaine-BUPivacaine 1%-0.25% infiltration injection 30 mL (COMPLETED) 30 mL, infiltration, Once in surgery, OR use only, Starting on Wed03/03/23 at 0656, For 1 dose, Intra-Op, Not for IV use 0944 (Given - Provider: William Adams D.O. - Comment: incisions) methocarbamoL tablet 750 mg (ROBAXIN) 750 mg, oral, Every 6 hours PRN, muscle spasms, Starting on [place] 03/04/23 at 0643 1047 (Given - Provider: Jake Bautista R.N.) naloxone injection 0.2 mg (NARCAN) 0.2 mg, intravenous, As needed, respiratory depression, Starting on Wed03/03/23 at 1213, For RASS Score -4 or less, respiratory rate of less than 8 breaths/min. Notify provider/service and rapid response team (if available at institution). ondansetron (PF) injection 4 mg (ZOFRAN) 4 mg, intravenous, Every 6 hours PRN, nausea, vomiting, Starting on Wed03/03/23 at 1533, For 48 hours, Reassess for nausea or vomiting after at least 10 minutes. If nausea or vomiting persists administer next ordered antiemetic medications (order for antiemetic medication administration ondansetron then haloperidol then prochlorperazine). oxyCODONE IR tablet 10 mg (ROXICODONE)(Linked Group 1) 10 mg, oral, Every 4 hours PRN, severe pain or score 7-10 of 10, Starting on Wed03/03/23 at 1213, Administer for pain unrelieved by non-opioid medications 1240 (Given - Provider: Jake Bautista R.N.)1822 (Not Given - Provider: Jake Bautista R.N. - Reason: Patient/family refused) 0845 (Given - Provider: Jake Bautista R.N.)1311 (Given - Provider: Diandra Duron R.N. - Comment: Pt requested 10 mg)194 (Given - Provider: Lucie Jacobson R.N.) 002 (Given - Provider: Lucie Jacobson R.N.)125 (Given - Provider: Marcelina Marquis R.N.) oxyCODONE IR tablet 5 mg (ROXICODONE)(Linked Group 1) 5 mg, oral, Every 4 hours PRN, moderate pain or score 4-6 of 10, Starting on Wed03/03/23 at 1213, Administer for pain unrelieved by non-opioid medications 1240 (See Alternative - Provider: Jake Bautista R.N.)1822 (See Alternative - Provider: Jake Bautista R.N.) 0845 (See Alternative - Provider: Jake Bautista R.N.)131 (See Alternative - Provider: Diandra Duron R.N.)194 (See Alternative - Provider: Lucie Jacobson R.N.) 002 (See Alternative - Provider: Lucie Jacobson R.N.)125 (See Alternative - Provider: Marcelina Marquis R.N.) prochlorperazine injection 5 mg (COMPAZINE) 5 mg, intravenous, Every 6 hours PRN, nausea, vomiting, Starting on Wed03/03/23 at 1213, For 48 hours, RASS must be -2 or higher to administer. Reassess for nausea/vomiting after at least 10 minutes. If nausea or vomiting persists administer next ordered antiemetic medications (order for antiemetic medication administration ondansetron then haloperidol then prochlorperazine) 1243 (Given - Provider: Jake Bautista R.N.) Linked Groups Order Group 1: oxyCODONE IR tablet 5 mg (ROXICODONE)Jump to med 5 mg, oral, Every 4 hours PRN, moderate pain or score 4-6 of 10, Starting on Wed03/03/23 at 1213, Administer for pain unrelieved by non-opioid medications Or oxyCODONE IR tablet 10 mg (ROXICODONE)Jump to med 10 mg, oral, Every 4 hours PRN, severe pain or score 7-10 of 10, Starting on Wed03/03/23 at 1213, Administer for pain unrelieved by non-opioid medications documented in this encounter Additional Health Concerns Assessment Noted Time PHQ-9 Depression Total Score: 6 09/29/19 23 11:41 AM CDT documented as of this encounter
--- OUTSIDE RECORDS SUMMARY | 2023-06-08 13:36 | XMS_ITS | Referral Summary ---
Author Name Unknown Organization [place] Address [address] [place] [id number] Care Team Providers Care Vibration Technician Name Role Phone Unavailable Primary Care Provider [...] Mass Index - - Plan of Treatment Not on file
--- OUTSIDE RECORDS SUMMARY | 2023-06-08 13:36 | XMS_ITS | Encounter Summary ---
Author Name Unknown Organization [facility] Address [address] [place] [id number] Care Team Providers Care Flange Turner Name Role Phone Unavailable Primary Care Provider Unavailabl e Reason for Referral * Outpatient (Routine) - Closed Specialty Diagnoses / Procedures Referred By Contac t Referred To Contact Nutrition Dai Xiong P.A.-C., M.S. [address] [place] [phone] [facility] Referral ID Status Reason Start Date Expiration Date Visits Re quested Visits Authorized [id number] Closed 03/04/2023 03/03/2026 1 1 BUYER * Outpatient (Routine) - Closed Specialty Diagnoses / Procedures Referred By Contac t Referred To Contact General Surgery Dai Xiong P.A.-C., M.S. [address] [place] [phone] [facility] Referral ID Status Reason Start Date Expiration Date Visits Re quested Visits Authorized [id number] Closed 03/04/2023 03/03/2026 1 1 Scheduling Instructions With Jyoti Lorenzo BUYER Reason for Visit * Auth/Cert (Routine) Specialty Diagnoses / Procedures Referred By Contac t Referred To Contact Diagnoses Morbid (severe) obesity due to excess calories (HCC) Procedures CT LAP LONGITUDINAL GASTRECTOMY ROBOTIC-ASSISTED SLEEVE GASTRECTOMY Referral ID Status Reason Start Date Expiration Date Visits Re quested Visits Authorized [id number] 1 1 Encounter Details Date Type Department Care Team (Latest Contact Info) Description 03/03/2023 5:33 AM GOLD BUYER - 03/05/2023 2:04 PM GOLD BUYER Hospital Encounter [facility], [facility], First Floor [address] [place] [address] Zeus Santana M.D. [address] [place] [address] Morbid Obesity Body Mass Index 50.0-59.9 Adult (HCC) Discharge Disposition: Home or Self Care Social History Tobacco Use Types Packs/Day Years Used Date Smoking Tobacco: Never Smokeless Tobacco: Never Alcohol Use Standard Drinks/Week Comments Never 0 (1 standard drink = 0.6 oz pur e alcohol) [facility] Utilities Answer Date Recorded In the past 12 months has [employer] gas, oil, or water [employer] threatened to shut off services in your [...] your living situation today? I have a [facility] place to live 03/03/2023 Sex and Gender Information Value Date Recorded Sex Assigned at Male 09/11/2022 7:49 AM CDT Gender Identity Male 09/11/2022 7:49 AM CDT Sexual Orientation Straight 09/11/2022 7: 49 AM CDT documented as of this encounter Last Filed Vital Signs Vital Sign Reading Time Taken Comments Blood Pressure 157/85 03/05/2023 1:00 PM GOLD BUYER Pulse 64 03/05/2023 1:00 PM GOLD BUYER Temperature 36.9 ??C (98.4 ??F) 03/05/2023 1:00 PM CS T Respiratory Rate 20 03/05/2023 1:29 AM GOLD BUYER Oxygen Saturation 97% 03/05/2023 1:00 PM GOLD BUYER Inhaled Oxygen Concentration - - Weight 148 kg (326 lb 4.5 oz) 03/03/2023 6:01 AM GOLD BUYER Height 173 cm (5' 8.11) 03/03/2023 6:01 AM GOLD BUYER Body Mass Index 49.45 03/03/2023 6:01 AM GOLD BUYER documented in this encounter Discharge Summaries * Jose Luis Carolina P.A.-C., M.S. - 03/05/2023 11:24 AM CST DISCHARGE SUMMARY BRIEF OVERVIEW Hospital: [facility] Discharge Provider: Zeus Santana M.D. Primary Team: [facility] General Surgery - [facility] Admission Date: 03/03/2023 Discharge Date: 03/05/2023 PRINCIPAL DIAGNOSIS Morbid Obesity Body Mass Index 45.0-49.9 Adult (HCC) SECONDARY DIAGNOSES Principal Problem: Morbid Obesity Body Mass Index 45.0-49.9 Adult ([facility]) Active Problems: Hypertension Essential Primary Obstructive Sleep Apnea Adult Surgery Bariatric Status Post Resolved Problems: * No resolved hospital problems. * Surgery Information This Encounter Past Procedures (03/05/2022 to Today) Date Procedures Providers Loc / Dept 03/03/2023 ROBOTIC-ASSISTED SLEEVE GASTRECTOMY. Zeus Santana M.D.Mirande, Maxwell D, D.O.Aarti Thomas M.D. [facility] ROMB OR DISCHARGE DISPOSITION Home or Self Care [1] OUTPATIENT FOLLOW UP Scheduled Appointments 03/19/2023 3:00 PM Kadie Miller, M.S., L.P.C.C. Psychiatry and Psychology 04/07/2023 2:30 PM Randal Campoverde APRN, C.N.P., M.S.N. Sleep Medicine For appointment details refer to your Patient Appointment Guide. TEST RESULTS PENDING AT DISCHARGE Pending Labs Order Current Status Surgical Pathology, Frozen Lab In process DETAILS OF HOSPITAL STAY REASON FOR ADMISSION Morbid Obesity Body Mass Index 50.0-59.9 Adult (HCC) Surgery Bariatric Status Post HOSPITAL COURSE Obesity secondary to caloric intake/expenditure mismatch (Body mass index is 49.45 kg/m??.); statuspost Robotic-assisted sleeve gastrectomy on 03/03/2023. The patient was admitted to [facility]. His weight at the time of [...] diet. The patient was seen by the vacuum cleaner operator during the hospitalization and is comfortable with [...] spent in discharge services today: >30 minutes. BUYER documented in this encounter Discharge Instructions * Attachments The following attachments cannot be sent through Care Everywhere. * Acetaminophen (By mouth) (Ukrainian) * Antacid, Calcium Containing (By mouth) (Ukrainian) * Cholecalciferol (By mouth) (Ukrainian) * Cyanocobalamin (Vitamin B-12) (By injection) (Ukrainian) * Enoxaparin (By injection) (Ukrainian) * Oxycodone, Rapid Release (By mouth) (Ukrainian) * Pantoprazole (By mouth) (Ukrainian) * Vitamin Combination with Iron, Pediatric Formula (By mouth) (Ukrainian) documented in this encounter Medications at Time [...] (thirty) days. 3 mL 3 04/03/2023 pediatric bfooucwokrrc-rolx-rvqh rals ([employer]) chewable tablet Chew 1 [...] kg (03/03/2023) Current Weight: (!) 148 kg [place] Body Weight (Calculated) : 68.4 kg BMI (Calculated): 49.5 kg/m?? ASPEN Criteria Malnutrition Status: No PLAN None at this time. For questions about patient's nutritional care please contact pager [phone] on weekdays or [phone] on weekends/holidays. BUYER * Aarti Thomas M.D. - 03/05/2023 6:29 [...] Morbid Obesity Body Mass Index 50.0-59.9 Adult ([facility]) #2 Hypertension Essential Primary #3 Obstructive Sleep [...] a Lidoderm patch and Robaxin PRN - Awake Overnight Monitor consult for post bariatric surgery patient education - Discharge with 60 mg Lovenox for 2 weeks when medically ready Patient care was discussed with Dr. Santana. Patient is being cared for by Dr. Santana's service, if you have any questions or concerns, please page [phone]. BUYER * Aarti Thomas M.D. - 03/04/2023 6:44 [...] Morbid Obesity Body Mass Index 50.0-59.9 Adult ([facility]) #2 Hypertension Essential Primary #3 Obstructive Sleep [...] this morning - Vitamin B12 injection - Awake Overnight Monitor consult - Discharge with 60 mg Lovenox for 2 weeks when medically ready Patient was seen and care discussed with Dr. Santana this morning. Patient is being cared for by Dr. Santana's service, if you have any questions or concerns, please page [phone]. BUYER * Daljit Sandoval, Pharm.D., R.Ph. - 03/03/2023 10:20 AM CST Admission Medication History Note Adherence issues: No concerns Medication list source: Patient Medication related information: none Prior to Admission Medications Med List Status: Pharmacy/RN Complete Set By: Danyell Anaya, R.N. at 03/03/2023 5:57 AM No medications reported. BUYER * Keanu Garcia - 03/03/2023 7:00 AM CST [facility] Spiritual Care Progress Note Patient: Mac Carolina Age:17 y.o. Location: [facility] [place] OR POOL ROOM/[facility] OR POOL Reason(s) for encounter: Spiritual Care contact to introduce spiritual care service and assess for potential spiritual care needs. Summary: I was able to meet with Mac Carolina prior to surgery. Hindu Identification / Spiritual Practices: Anabaptist. Spiritual Needs and/or Concerns: No spiritual needs [...] requested. Chaplains can be contacted by paging [phone] ([place]) or [phone] ([place]). BUYER documented in this encounter Consult Notes * Olga Wang RDN, LD - 03/04/2023 10:54 AM CSTAssociated Order(s): IP [...] about patient's nutritional care please contact pager [phone] on weekdays 07:30-16:00 or [phone] on weekends/holidays. BUYER documented in this encounter Nursing Notes * Marcelina Marquis, ShobhaN. - 03/05/2023 1:41 PM CST Shift Goals: [...] discharge needs identified Outcome: Adequate for Discharge BUYER documented in this encounter OR Notes * Op Note - Zeus Santana M.D. - 03/03/2023 8:11 AM CST Pre-op Diagnosis Morbid Obesity Body Mass Index 50.0-59.9 Adult (HCC) Post-op Diagnosis Morbid Obesity Body Mass Index 50.0-59.9 Adult (HCC) A rn first assistant was needed for one or more [...] this point, we did pass a ViSiGi (40-Colombian) into the stomach. It went down from [...] from incision till closure. Zeus Santana M.D. BUYER * Brief Op Note - William Adams, D.O. - 03/03/2023 8:11 AM CST Pre-op Diagnosis Morbid Obesity Body Mass Index 50.0-59.9 Adult (HCC) Post-op Diagnosis Morbid Obesity Body Mass Index 50.0-59.9 Adult (HCC) Findings Robotic-assisted sleeve gastrectomy Complications None Brian Adams D.O. BUYER documented in this encounter Miscellaneous Notes * Hospital Course - Jose Luis Carolina P.A.-C., M.S. - 03/03/2023 1:36 PM GOLD BUYER Obesity secondary to caloric intake/expenditure mismatch (Body mass index is 49.45 kg/m??.); statuspost Robotic-assisted sleeve gastrectomy on 03/03/2023. The patient was admitted to [facility]. His weight at the time of [...] diet. The patient was seen by the vacuum cleaner operator during the hospitalization and is comfortable with diet instructions. He was given a vitamin B12 injection prior to dismissal and taught to self-inject. OPERATIVE PROCEDURE Robotic assisted sleeve gastrectomy CHRONIC CONDITIONS Hypertension Essential Primary Obstructive Sleep Apnea Adult Tuberculosis Latent Chronic conditions were stable throughout the hospitalization. The patient's home medications were restarted as indicated. BUYER documented in this encounter Plan of Treatment Upcoming Encounters Date Type Department Care Team (Late st Contact Info) Description 06/11/2023 8:00 AM CDT Telemedicine Department of Nutrition and Diabetes Education in [place], [place] [address] [place] [address] Brandon Mendiola APRN, C.N.P., D.N.P. [address] [place] [address] Scheduled Referrals Name Type Priority Associated Diagnoses Orde r Schedule General Surgery Post Op (clinic) Outpatient Referral Routine Expected: 03/25/2023 (Approximate), Expires: 06/02/2024 Nutrition office visit (clinic) Outpatient Referral Routine Expected: 03/25/2023 (Approximate), Expires: 06/02/2024 documented as of this encounter Procedures Procedure Name Priority Date/Time Associated Diagnosis Comments REMOTE OXIMETRY MONITORING CONT. Routine 03/04/2023 8:01 AM GOLD BUYER CBC WITHOUT DIFFERENTIAL, B Timed 03/04/2023 7:35 AM GOLD BUYER REMOTE OXIMETRY MONITORING CONT. Routine 03/03/2023 8:01 PM GOLD BUYER REMOTE OXIMETRY MONITORING CONT. Routine 03/03/2023 12:13 PM GOLD BUYER REMOTE OXIMETRY MONITORING CONT. Routine 03/03/2023 12:13 PM GOLD BUYER REMOTE OXIMETRY MONITORING CONT. Routine 03/03/2023 12:13 PM GOLD BUYER SURGICAL PATHOLOGY, [facility] Routine 03/03/2023 9:26 AM GOLD BUYER Morbid Obesity Body Mass Index 50.0-59.9 Adult (HCC) ROBOTIC-ASSISTED SLEEVE GASTRECTOMY 03/03/2023 7:00 AM GOLD BUYER Morbid Obesity Body Mass Index 50.0-59.9 Adult (HCC) Case Notes English intrp needed documented in this encounter Results * (ABNORMAL) CBC without Differential (03/04/2023 7:35 AM GOLD BUYER) Hemoglobin 15.7 13.2 - 16.6 g/dL 03/04/2023 8:12 AM GOLD BUYER DTL Hematocrit 44.0 38.3 - 48.6 % 03/04/2023 8:12 AM GOLD BUYER DTL Erythrocytes 5.16 4.35 - 5.65 x10(12)/L 03/04/2023 8:12 AM GOLD BUYER DTL MCV 85.3 78.2 - 97.9 fL 03/04/2023 8:12 AM GOLD BUYER DTL RBC Distrib Width 13.0 11.8 - 14.5 % 03/04/2023 8:12 AM GOLD BUYER DTL Platelet Count 376(H) 135 - 317 x10(9)/L 03/04/2023 8:12 AM GOLD BUYER DTL Leukocytes 11.2(H) 3.4 - 9.6 x10(9)/L 03/04/2023 8:12 AM GOLD BUYER DTL Blood (Blood, Venous) 03/04/2023 7:35 AM GOLD BUYER 03/04/2023 8:03 AM GOLD BUYER William Adams D.O. LAB BLOOD ADD-ON [facility] [address] [place] [address], [facility] DTL [facility] [address] [place] [address] * Surgical Pathology, Frozen Lab (03/03/2023 9:26 AM GOLD BUYER) 03/05/2023 2:18 PM GOLD BUYER STMA Report electronically signed by Alexander Sandoval M.D., Ph.D. I verify that I have examined all relevant slides/material s for the specimen(s) and rendered or confirmed the diagnosis. 03/05/2023 2:18 PM GOLD BUYER STMA Gross Description A. ??Received fresh labeled greater curvature stomach is a 20.5 x 4.5 x 2 cm portion of stomach. ??The mucosa is unremarkable with normal folds, without mass or ulcers. Marketing Professor tissue submitted for permanent sections. Grossed by Dina Fernando, Ph.D.-Pathology Resident. 03/05/2023 2:18 PM GOLD BUYER STMA Block Summary A Greater curvature stomach A1 Greater curvature stomach 03/05/2023 2:18 PM GOLD BUYER STMA Interpretation FINAL DIAGNOSIS A. ??Stomach, greater curvature, sleeve gastrectomy: Portion of benign stomach. ??No Helicobacter pylori. Digital imaging was used in the diagnostic assessment of this case . 03/05/2023 2:18 PM GOLD BUYER STMA Tissue (Stomach) 03/03/2023 9:26 AM GOLD BUYER Zeus Santana M.D. LAB SURG PATH ORDERA BLES [facility] [address] [place] [address], [facility] [address] [place] [address] documented in this encounter Visit Diagnoses Diagnosis Morbid Obesity Body Mass Index 45.0-49.9 Adult (HCC)- Primary Morbid Obesity Body Mass Index 50.0-59.9 Adult (HCC) Hypertension Essential Primary Obstructive Sleep Apnea Adult Surgery Bariatric Status Post documented in this encounter Admitting Diagnoses Diagnosis Surgery Bariatric Status Post documented in this encounter Administered Medications Inactive Administered Medications - up to 3 most recent administrations Medication Order MAR Action Action Date Dose Rate Site acetaminophen tablet 1,000 mg (TYLENOL) 1,000 mg, oral, Once, On Wed03/03/23 at 0615, For 1 dose, Pre-Op, Fiber Optics Technician, PreOp with sips Given 03/03/2023 6:13 AM GOLD BUYER 1,000 mg acetaminophen tablet 1,000 mg (TYLENOL) 1,000 mg, oral, Every 6 hours, First dose on Wed03/03/23 at 1230, Start when able to take PO. Crush tablets if needed. Given 03/05/2023 12:50 PM GOLD BUYER 1,000 mg Given 03/05/2023 12:29 AM GOLD BUYER 1,000 mg Given 03/04/2023 1:11 PM GOLD BUYER 1,000 mg cyanocobalamin 1,000 mcg/mL injection 1,000 mcg (VITAMIN B12) 1,000 mcg, subcutaneous, Once, On Wed03/04/23 at 0900, For 1 dose, Prior to discharge Given 03/04/2023 8:45 AM GOLD BUYER 1,000 mcg Right Outer Thigh enoxaparin injection 60 mg (LOVENOX) 60 mg, subcutaneous, Daily, First dose on Wed03/04/23 at 0900 Given 03/05/2023 9:06 AM GOLD BUYER 60 mg Left Upper Arm (Back ) Given 03/04/2023 8:45 AM GOLD BUYER 60 mg Ri ght Outer Thigh fentaNYL injection 25 mcg (SUBLIMAZE) 25 mcg, intravenous, Every 2 min PRN, For pain 4 or greater (maximum 100 mcg). If max dose of Fentanyl is reached and if pain is greater than 4, discontinue Fentanyl: give Hydromorphone, Starting on Wed03/03/23 at 1024, PACU (only) Given 03/03/2023 10:50 AM GOLD BUYER 25 mcg Given 03/03/2023 10:42 AM GOLD BUYER 25 mcg Given 03/03/2023 10:40 AM GOLD BUYER 25 mcg heparin (porcine) injection 5,000 Units 5,000 Units, subcutaneous, Every 8 hours scheduled, First dose on Wed03/03/23 at 2200 Given 03/04/2023 5:57 AM GOLD BUYER 5,000 Units Left Upper Arm (Back ) Given 03/03/2023 9:41 PM GOLD BUYER 5,000 Units L eft Upper Arm (Back) HYDROmorphone (PF) injection 0.2 mg (DILAUDID) 0.2 mg, intravenous, Every 5 min PRN, moderate pain or score 4-6 of 10, severe pain or score 7-10 of 10, Starting on Wed03/03/23 at 1024, PACU (only), Up to maximum total dose of 2 mg Given 03/03/2023 11:22 AM GOLD BUYER 0.2 mg HYDROmorphone (PF) injection 0.2 mg (DILAUDID) 0.2 mg, intravenous, Every 2 hour PRN, severe pain or score 7-10 of 10, moderate pain or score 4-6 of 10, Starting on Wed03/03/23 at 1651 Lactated Ringer's 100 mL/hr, intravenous, Continuous, Starting on Wed03/03/23 at 1230 New Bag 03/05/2023 9:18 AM GOLD BUYER 100 mL/hr 100 mL/hr New Bag 03/05/2023 12:34 AM GOLD BUYER 100 mL/hr 100 mL/hr New Bag 03/04/2023 4:03 PM GOLD BUYER 100 mL/hr 100 mL/hr lidocaine 5 % 1 patch (LIDODERM) 1 patch, transdermal, Administer over 12 Hours, Daily, First dose on Wed03/04/23 at 0900, Remove after 12 hours. Medication Applied 03/05/2023 9:05 AM GOLD BUYER 1 patch Right Lower Abdomen Medication Applied 03/04/2023 8:45 AM GOLD BUYER 1 patch Left Lower Abdomen methocarbamoL tablet 750 mg (ROBAXIN) 750 mg, oral, Every 6 hours PRN, muscle spasms, Starting on Wed03/04/23 at 0643 Given 03/04/2023 10:47 AM GOLD BUYER 750 mg oxyCODONE IR tablet 10 mg (ROXICODONE) 10 mg, oral, Every 4 hours PRN, severe pain or score 7-10 of 10, Starting on Wed03/03/23 at 1213, Administer for pain unrelieved by non-opioid medications Given 03/05/2023 12:51 PM GOLD BUYER 10 mg Given 03/05/2023 12:29 AM GOLD BUYER 10 mg Given 03/04/2023 7:40 PM GOLD BUYER 10 mg oxyCODONE IR tablet 5 mg [...] of 4 mg/mL. Given 03/05/2023 9:05 AM GOLD BUYER 40 mg Given 03/04/2023 8:45 AM GOLD BUYER 40 mg Given 03/03/2023 2:50 PM GOLD BUYER 40 mg prochlorperazine injection 5 mg (COMPAZINE) 5 mg, intravenous, Every 6 hours PRN, nausea, vomiting, Starting on Wed03/03/23 at 1213, For 48 hours, RASS must be -2 or higher to administer. Reassess for nausea/vomiting after at least 10 minutes. If nausea or vomiting persists administer next ordered antiemetic medications (order for antiemetic medication administration ondansetron then haloperidol then prochlorperazine) Given 03/03/2023 12:43 PM GOLD BUYER 5 mg documented in this encounter Active and Recently Administered Medications Times are shown in GOLD BUYER. Scheduled Medication Order 03/03/2023 03/04/2023 03/05/2023 acetaminophen tablet 1,000 mg (TYLENOL) (COMPLETED) 1,000 mg, oral, Once, On Wed03/03/23 at 0615, For 1 dose, Pre-Op, Fiber Optics Technician, PreOp with sips 0613 (Given - Provider: Danyell Anaya R.N.) acetaminophen tablet 1,000 mg (TYLENOL) 1,000 mg, oral, Every 6 hours, First dose on Wed03/03/23 at 1230, Start when able to take PO. Crush tablets if needed. 1344 (Not Given - Provider: Jake Bautista R.N. - Reason: Patient/family refused)1812 (Given - Provider: Shobha RaymondN.) 0021 (Not Given - Provider: Deborah Chan RMiguelNMiguel - Reason: Patient/family refused)0557 (Given - Provider: Shobha CliftonN.)1311 (Given - Provider: Shobha MoeNMiguel)1844 (Not Given - Provider: Shobha RaymondNMiguel - Reason: Other - Comment: pt did not finish afternoon dose yet) 0029 (Given - Provider: Shobha TrujilloNMiguel)0623 (Not Given - Provider: Lucie Jacobson R.N. - Reason: Other - Comment: pt still [...] 0802 (Given - Provider: Chanda Mcintyre APRN, FARM ADVISOR) cyanocobalamin 1,000 mcg/mL injection 1,000 mcg (VITAMIN B12) (COMPLETED) 1,000 mcg, subcutaneous, Once, On Wed03/04/23 at 0900, For 1 dose, Prior to discharge 0845 (Given - Provider: Jake Bautista RMiguelNMiguel) enoxaparin injection 60 mg (LOVENOX) 60 mg, subcutaneous, Daily, First dose on Wed03/04/23 at 0900 0845 (Given - Provider: Jake Bautista R.N.) 0906 (Given - Provider: Marcelina Marquis RMiguelNMiguel) heparin (porcine) injection 5,000 Units (CANCELED) 5,000 Units, subcutaneous, Every 8 hours scheduled, First dose on Wed03/03/23 at 2200 2141 (Given - Provider: Deborah Chan R.N.) 0557 (Given - Provider: Deborah Chan R.N.) heparin (porcine) injection 5,000 Units (COMPLETED) 5,000 Units, subcutaneous, Once, On Wed03/03/23 at 0715, For 1 dose, Intra-Op, Administer prior to induction of anesthesia. 0808 (Given - Provider: Chanda Mcintyre, CPC, FARM ADVISOR) lidocaine 5 % 1 patch (LIDODERM) 1 patch, transdermal, Administer over 12 Hours, Daily, First dose on Yaquelin 03/04/23 at 0900, Remove after 12 hours. 0845 [...] (Continued from OR - Provider: Jake Bautista RMiguelNMiguel)2034 (New Bag - Provider: Deborah Chan R.N.) 0557 (New Bag - Provider: Deborah Chan R.N.)1603 (New Bag - Provider: Jake Bautista R.N.) 0034 (New Bag - Provider: Lucie Jacobson R.N.)0918 (New Bag - Provider: Marcelina Marquis R.N.) PRN Medication Order 03/03/2023 03/04/2023 03/05/2023 diphenhydrAMINE [...] Duron R.N. - Comment: Pt requested 10 mg)1940 (Given - Provider: Lucie Jacobson R.N.) 0029 (Given - Provider: Lucie Jacobson R.N.)1251 (Given - Provider: Marcelina Marquis RMiguelNMiguel) oxyCODONE IR tablet 5 mg (ROXICODONE)(Linked Group 1) 5 mg, oral, Every 4 hours PRN, moderate pain or score 4-6 of 10, Starting on Wed03/03/23 at 1213, Administer for pain unrelieved by non-opioid medications 1240 (See Alternative - Provider: Jake Bautista R.N.)1822 (See Alternative - Provider: Jake Bautista R.N.) 0845 (See Alternative - Provider: Jake Bautista R.N.)1311 (See Alternative - Provider: Diandra Duron R.N.)1940 (See Alternative - Provider: Lucie Jacobson R.N.) 0029 (See Alternative - Provider: Lucie Jacobson R.N.)1251 (See Alternative - Provider: Marcelina Marquis R.N.) [...]
--- OUTSIDE RECORDS SUMMARY | 2023-06-08 13:36 | XMS_ITS | Encounter Summary ---
Author Name Unknown Organization [facility] Address [address] [place] [id number] Care Team Providers Care Vegetable Packer Name Role Phone Unavailable Primary Care Provider Unavailabl e Reason for Visit * Auth/Cert (Routine) Specialty Diagnoses / Procedures Referred By Contac t Referred To Contact Diagnoses Morbid (severe) obesity due to excess calories (HCC) Procedures DC LAP LONGITUDINAL GASTRECTOMY ROBOTIC-ASSISTED SLEEVE GASTRECTOMY Referral ID Status Reason Start Date Expiration Date Visits Re quested Visits Authorized [id number] 1 1 Encounter Details Date Type Department Care Team (Late st Contact Info) Description 03/03/2023 7:30 AM CUSTOMER EXPERIENCE STRATEGIST Anesthesia Event RST ROMB MAIN OR [address] [place] [phone] Jyoti Salazar M.D. [address] [place] [phone] Anesthesia Record Procedure Summary Procedure Name Responsible Anesthesiologist Anesthesia Start Time Anesthesia Stop Time ROBOTIC-ASSISTED SLEEVE GASTRECTOMY. Jyoti Salazar M.D. 03/03/23 0730 03/03/23 1015 Events Date Time Event Comment 03/03/2023 0730 An Start Machine/Equipme nt Checked Infection Precautions Followed Procedure/Site Verified NPO Status Verified Supine Standard ASA Monitors Applied 0735 An Induction 0737 An Intubation 0739 Turnover to Proceduralist 0800 Quick Note Esophageal dila tor placed 0811 Proc Start 0909 Quick Note Removed tube 0910 Anes CS Handoff I, Chanda Fordk el, DOCUMENTATION DESIGNER, [employer], attest that I have reconciled the controlled substances and that I have reviewed all the significant information with the next anesthesia provider assuming care of this patient. 0954 Proc Fin 1003 Turnover to ANE Staff 1003 Airway Removal Criteria Met 1003 Extubation/Airway Removed 1007 an stop data 1015 An End I completed my handoff to the receiving staff during which we 1. Identified the patient 2. Identified the responsible provider 3. Reviewed the pertinent medical history 4. Discussed the surgical course 5. Reviewed intra-op anesthesia management and issues during anesthesia 6. Set expectations for post-procedure period 7. Allowed opportunity for questions and acknowledgement of understanding. Meds Name Total fentanyl injection 50 mcg/mL 200 mcg lidocaine 2% (mg) injection 100 mg rocuronium 10 mg/mL injection 100 mg succinylcholine 20 mg/mL injection 160 m g ondansetron 4 mg/2 mL injection 4 mg sugammadex 100 mg/mL injection 500 mg propofol 10 mg/mL infusion 2,157.1 mg propofol 10 mg/mL injection 250 mg ceFAZolin injection 3,000 mg (ANCEF) 3 g heparin (porcine) injection 5,000 Units 3,000 Units haloperidol 5 mg/mL injection 1 mg dexAMETHasone (DECADRON) injection 4 mg/ mL 8 mg HYDROmorphone 1 mg/mL injection 0.4 mg labetalol 5 mg/mL injection 5 mg Lactated Ringers Free Drip 1,000 mL lactated ringers free drip 700 mL * Agents No agents on file. * Blood No blood administrations on file. Lines, Drains, and Airways Type Details Placement Removal Scope Sites 03/03/23; Abdomen; 1 ; Right; 2; Mid, Upper; 3; Mid, Lower; 4; Left, Medial; 5; Left, Lateral 03/03/23 0000 by Mabel Pineda A, R.N. Peripheral IV Placement Date: 11/23 08/14; Placement Time: 1146; Catheter Size: 22 G; Orientation: Anterior, Distal, Right, Upper; Location: Forearm; Site Prep: Chlorhexidine (Preferred); Technique: Anatomical landmarks; Inserted by: Parish; Insertion Attempts: 3; Removal Date: 04/03/23; Removal Time: 170; Removal Reason: No longer in place (Not present on ED arrival) 12/17/22 1146 by Montse Bacon, R.NMiguel 04/03/23 1702 by Joel Nunes, R.N. Peripheral IV Placement Date: 02/22 ; Placement Time: 0557; Catheter Size: 18 G; Orientation: Right; Location: Hand; Site Prep: Chlorhexidine (Preferred); Technique: Anatomical landmarks; Insertion Attempts: 1; Removal Date: 03/05/23; Removal Time: 1300; Removal Reason: Patient discharged 03/03/23 0557 by Kadie Willis R.N. 03/05/23 1300 by Marcelina Marquis R.N. ETT Placement Date: 02/22 ; Placement Time: 0737 (created via procedure documentation); Mask Ventilation: Easy mask; Technique: Video laryngoscopy; Type: Standard ETT; Single Lumen Tube Size: 7.5 mm; Cuffed: Yes; Location: Oral; Grade View: Grade 1; Insertion Attempts: 1; Placement Verification: Bilateral breath sounds, Positive ETCO2, Symmetrical chest wall movement; Removal Date: 03/03/23; Removal Time: 1003 03/03/23 0737 by Chanda Mcintyre APRN, CRNA 03/03/23 1003 by Chanda Mcintyre APRN, CRNA Peripheral IV Placement Date: 02/22 ; Placement Time: 0738; Catheter Size: 20 G; Orientation: Left; Location: Hand; Removal Date: 03/05/23; Removal Time: 1300; Removal Reason: Patient discharged 03/03/23 0738 by Chanda Mcintyre APRN, CRNA 03/05/23 1300 by Marcelina Marquis R.N. documented in this encounter Social History Tobacco Use Types Packs/Day Years Used Date Smoking Tobacco: Never Smokeless Tobacco: Never Alcohol Use Standard Drinks/Week Comments Never 0 (1 standard drink = 0.6 oz pur e alcohol) [facility] Utilities Answer Date Recorded In the past 12 months has [employer], gas, oil, or water [employer] threatened to shut off services in your [...] AM CDT documented as of this encounter OR Notes * Anesthesia Postprocedure Evaluation - Vanessa Bethea M.D. - 03/03/2023 11:22 AM CST Patient: Mac Carolina Procedure Summary Date: 03/03/23 Room / Location: [address] / [facility] in [place], [place] Anesthesia Start: 729 Anesthesia Stop: 1014 Procedure: ROBOTIC-ASSISTED SLEEVE GASTRECTOMY. Diagnosis: Morbid Obesity Body Mass Index 50.0-59.9 Adult (HCC) (Morbid Obesity Body Mass Index 50.0-59.9 Adult (HCC) [E66.01, Z68.43].) Providers: Zeus Santana M.D. Responsible Provider: Jyoti Salazar M.D. Anesthesia Type: general ASA Status: 3 Anesthesia Type: general Last vitals Vitals Value Taken Time BP 166/107 03/03/23 1115 Temp 36.8 ??C 03/03/23 1053 Pulse 100 03/03/23 1122 Resp 25 03/03/23 1122 SpO2 98 % 03/03/23 1122 Vitals shown include unfiled device data. Please reference Vitals flowsheet for most recent vital signs. Anesthesia Post Evaluation Patient Disposition: general care unit Cardiovascular status: hemodynamics (HR & BP) acceptable Respiratory status: patent airway with spontaneous effort Temperature: normothermic Oxygen requirements: room air Level of consciousness: awake Pain score: pain adequately controlled and/or at baseline Post Op nausea/vomiting: none Hydration status: euvolemic OMER EXPERIENCE STRATEGIST * Anesthesia Procedure Notes - Chanda Mcintyre APRN, CRNA - 03/03/2023 8:16 AM CSTAssociated Order(s): Airway Airway Date/Time: 03/03/2023 7:37 AM Performed by: Chanda Mcintyre APRN, CRNA Authorized by: Jyoti Salazar M.D. Patient location during procedure: OR / Procedure Area PROCEDURE DETAILS: Mask difficulty assessment: easy mask Final airway type: video laryngoscope Laryngeal Manipulation: no Final best view of glottic structures - Cormack/Lehane Score: grade 1 ETT location: oral VL device: glide scope [place] scope blade size: 4 Tube size: 7.5 ETT distance at teeth/gum: 22 Oral tube type: standard ETT Cuffed: yes Leak Test Performed: no Number of attempt to successful placement: 1 Airway confirmation: bilateral breath sounds, positive ETCO2 and bilateral chest rise Other previous techniques attempted: none PRE PROCEDURE DETAILS: Pre evaluation for airway management: procedure Urgency: elective Preoxygenation: bag valve mask SEDATION / ANESTHESIA Anesthesia method: anesthesia POST PROCEDURE DETAILS: Procedure outcome: successful OMER EXPERIENCE STRATEGIST * Anesthesia Preprocedure Evaluation - Jyoti Salazar M.D. - 03/03/2023 7:12 AM CST Preprocedure Anesthesia & H&P Assessment Procedure Summary Date/Time: 03/03/23 0700 Procedure: ROBOTIC-ASSISTED SLEEVE GASTRECTOMY. Diagnosis: Morbid Obesity Body Mass Index 50.0-59.9 Adult (HCC) [E66.01, Z68.43] Pre-op diagnosis: Morbid Obesity Body Mass Index 50.0-59.9 Adult (HCC) [E66.01, Z68.43]. Location: [place] [address] / [facility] in [place], [place] Providers: Zeus Santana M.D. Pertinent components of the patient's history including current problem list, medical history, surgical history, family history, social history, medications and allergies were reviewed. Present illness and pre-op diagnosis were confirmed. The planned surgery / procedure was verified with the patient / legal guardian. The patient's general health condition remains unchanged RELEVANT COMORBID CONDITIONS CV (+) Hypertension Essential Primary RESP (+) Obstructive Sleep Apnea Adult Other (+) Morbid Obesity Body Mass Index 50.0-59.9 Adult (HCC) OBJECTIVE PHYSICAL EXAMINATION Airway (HEENT) Mallampati: III TM Distance: >3 FB Neck ROM: Full Mouth Opening: >3 cm Cardiovascular Rhythm: Regular Rate: Normal Cardiovascular Assessment: cardiovascular normal Functional Capacity: >4 METS Pulmonary Pulmonary Assessment: Clear General / Constitutional Constitutional Assessment: Obese General State of Health:: healthy appearing and calm Neurological Neurologic Assessment: alert Dental Dental Assessment: dentition intact ASSESSMENT / PLAN ANESTHESIA PLAN ASA: 3 Anesthesia Plan: general Patient seen and allergies reviewed, anesthesia plan and risks discussed directly with patient /legal guardian or through an cylinder filler. Risks/Benefits/Alternatives of Blood transfusion discussed with patient / legal guardian, includingan opportunity to ask questions and/or decline some or all transfusion therapies. The patient / legal guardian consented to the use of all blood products, as deemed medically necessary Approval to Proceed: approved for anesthesia OMER EXPERIENCE STRATEGIST documented in this encounter Plan of Treatment Upcoming Encounters Date Type Department Care Team (Late st Contact Info) Description 06/11/2023 8:00 AM CDT Telemedicine Department of Nutrition and Diabetes Education in [place], [place] [address] [place] [phone] Brandon Mendiola APRN, C.N.P., D.N.P. [address] [place] [phone] documented as of this encounter Procedures Procedure Name Priority Date/Time Associated Diagnosis Comments LDA ANE ENDOTRACHEAL AIRWAY Routine 03/03/2023 7:37 AM CUSTOMER EXPERIENCE STRATEGIST documented in this encounter Results * LDA ANE ENDOTRACHEAL AIRWAY (03/03/2023 7:37 AM CUSTOMER EXPERIENCE STRATEGIST) Narrative Chanda Mcintyre APRN, CRNA - 03/03/2023 7:37 AM CUSTOMER EXPERIENCE STRATEGIST Chanda Mcintyre APRN, CRNA ? 03/03/2023 ??8:17 AM Airway Date/Time: 03/03/2023 7:37 AM Performed by: Chanda Mcintyre APRN, CRNA Authorized by: Jyoti Salazar M.D. ?? Patient location during procedure: OR / Procedure Area PROCEDURE DETAILS: Mask difficulty assessment: easy mask Final airway type: video laryngoscope Laryngeal Manipulation: no ?? Final best view of glottic structures - Cormack/Lehane Score: grade 1 ETT location: oral VL device: glide scope [place] scope blade size: 4 Tube size: 7.5 ETT distance at teeth/gum: 22 Oral tube type: standard ETT Cuffed: yes Leak Test Performed: no ?? Number of attempt to successful placement: 1 Airway confirmation: bilateral breath sounds, positive ETCO2 and bilateral chest rise Other previous techniques attempted: none PRE PROCEDURE DETAILS: Pre evaluation for airway management: procedure Urgency: elective Preoxygenation: bag valve mask SEDATION / ANESTHESIA Anesthesia method: anesthesia POST PROCEDURE DETAILS: ? Procedure outcome: successful ?? Jyoti Whalen M.D. ANESTHESIA O RDERABLES documented in this encounter Visit Diagnoses Not on filedocumented in this encounter Administered Medications Inactive Administered Medications - up to 3 most recent administrations Medication Order MAR Action Action Date Dose Rate Site ceFAZolin injection 3,000 mg (ANCEF) 3,000 mg (rounded from 4,000 mg = 25 mg/kg ? 160 kg), intravenous, Once, On Wed03/03/23 at 0715, For 1 dose, Intra-Op, Administer within 1 hour prior to surgical incision If needed, reconstitute vial per package insert instructions. See IVAG for administration guidelines., Drug Monitoring Program: Pharmacist to adjust medication dosing based on indication and drug clearance factors., Indications: Prophylaxis, surgical Given 03/03/2023 8:02 AM CUSTOMER EXPERIENCE STRATEGIST 3 g dexAMETHasone injection (DECADRON) intravenous, As needed, Starting on Wed03/03/23 at 0815, Anesthesia Intra-op Given 03/03/2023 8:15 AM CUSTOMER EXPERIENCE STRATEGIST 8 mg fentaNYL injection (SUBLIMAZE) intravenous, As needed, Starting on Wed03/03/23 at 0736, Anesthesia Intra-op Given 03/03/2023 9:20 AM CUSTOMER EXPERIENCE STRATEGIST 50 mcg Given 03/03/2023 8:12 AM CUSTOMER EXPERIENCE STRATEGIST 50 mcg Given 03/03/2023 7:50 AM CUSTOMER EXPERIENCE STRATEGIST 50 mcg haloperidol lactate injection (HALDOL) intravenous, As needed, Starting on Wed03/03/23 at 0814, Anesthesia Intra-op Given 03/03/2023 8:14 AM CUSTOMER EXPERIENCE STRATEGIST 1 mg heparin (porcine) injection 5,000 Units 5,000 Units, subcutaneous, Once, On Wed03/03/23 at 0715, For 1 dose, Intra-Op, Administer prior to induction of anesthesia. Given 03/03/2023 8:08 AM CUSTOMER EXPERIENCE STRATEGIST 3,000 Units HYDROmorphone injection (DILAUDID) intravenous, As needed, Starting on Wed03/03/23 at 0944, Anesthesia Intra-op Given 03/03/2023 9:44 AM CUSTOMER EXPERIENCE STRATEGIST 0.4 mg labetalol injection (NORMODYNE,TRANDATE) intravenous, As needed, Starting on Wed03/03/23 at 0935, Anesthesia Intra-op Given 03/03/2023 9:35 AM CUSTOMER EXPERIENCE STRATEGIST 5 mg Lactated Ringer's intravenous, Continuous Infusion: Per Instructions PRN, Starting on Wed03/03/23 at 0736, Anesthesia Intra-op New Bag 03/03/2023 7:30 AM CUSTOMER EXPERIENCE STRATEGIST Lactated Ringer's intravenous, Continuous Infusion: Per Instructions PRN, Starting on Wed03/03/23 at 0738, Anesthesia Intra-op New Bag 03/03/2023 7:38 AM CUSTOMER EXPERIENCE STRATEGIST lidocaine (PF) (cardiac) injection intravenous, As needed, Starting on Wed03/03/23 at 0735, Anesthesia Intra-op Given 03/03/2023 7:35 AM CUSTOMER EXPERIENCE STRATEGIST 100 mg ondansetron (PF) injection (ZOFRAN) intravenous, As needed, Starting on Wed03/03/23 at 0933, Anesthesia Intra-op Given 03/03/2023 9:33 AM CUSTOMER EXPERIENCE STRATEGIST 4 mg propofol 10 mg/mL infusion (DIPRIVAN) intravenous, Continuous Infusion: Per Instructions PRN, Starting on Wed03/03/23 at 0736, Anesthesia Intra-op Rate/Dose Change 03/03/2023 9:27 AM CUSTOMER EXPERIENCE STRATEGIST 100 mcg/kg/min 88.8 mL/hr New Bag 03/03/2023 7:36 AM CUSTOMER EXPERIENCE STRATEGIST 125 mcg/kg/min 111 mL/hr propofoL injection (DIPRIVAN) intravenous, As needed, Starting on Wed03/03/23 at 0735, Anesthesia Intra-op Given 03/03/2023 8:15 AM CUSTOMER EXPERIENCE STRATEGIST 50 mg Given 03/03/2023 7:35 AM CUSTOMER EXPERIENCE STRATEGIST 200 mg rocuronium injection (ZEMURON) intravenous, As needed, Starting on Wed03/03/23 at 0745, Anesthesia Intra-op Given 03/03/2023 8:55 AM CUSTOMER EXPERIENCE STRATEGIST 20 mg Given 03/03/2023 8:40 AM CUSTOMER EXPERIENCE STRATEGIST 10 mg Given 03/03/2023 8:10 AM CUSTOMER EXPERIENCE STRATEGIST 20 mg succinylcholine (PF) injection (ANECTINE) intravenous, As needed, Starting on Wed03/03/23 at 0735, Anesthesia Intra-op Given 03/03/2023 7:35 AM CUSTOMER EXPERIENCE STRATEGIST 160 mg sugammadex injection (BRIDION) intravenous, As needed, Starting on Wed03/03/23 at 0946, Anesthesia Intra-op Given 03/03/2023 9:46 AM CUSTOMER EXPERIENCE STRATEGIST 500 mg documented in this encounter Additional Health Concerns Assessment Noted Time PHQ-9 Depression Total Score: 6 09/29/19 23 11:41 AM CDT documented as of this encounter
--- OUTSIDE RECORDS SUMMARY | 2023-06-08 13:36 | XMS_ITS | Encounter Summary ---
Author Name Unknown Organization [facility] Address [address] [place] [address] Care Team Providers Care Laser Operator Name Role Phone Unavailable Primary Care Provider Unavailabl e Reason for Referral * Specialty Diagnoses / Procedures Referred By Serena t Referred To Contact Brandon Mendiola APRN, C.N.PMiguel, D.N.P. [address] [place] [phone] [facility] Referral ID Status Reason Start Date Expiration Date Visits Re quested Visits Authorized Scheduling Instructions [facility] /[facility] Video (2-3 mo rocco group) [facility] NG PAN TENDER Reason for Visit * Reason Onset Date Comments Pre-visit Testing Orders 03/23/2023 Encounter Details Date Type Department Care Team (Latest Contact Info) Description 03/23/2023 Clinical Communication Division of Endocrinology in [place], [place] [address] [place] [phone] Brandon Mendiola APRN, C.N.P., D.N.P. [address] [place] [phone] Pre-visit Testing Orders Social History Tobacco Use Types Packs/Day Years Used Date Smoking Tobacco: Never Smokeless Tobacco: Never Alcohol Use Standard Drinks/Week Comments Never 0 (1 standard drink = 0.6 oz pur e alcohol) [facility] Utilities Answer Date Recorded In the past 12 months has e [employer], [employer], oil, or water [employer] threatened to shut off services in your [...] your living situation today? [facility] 03/03/2023 Sex and [...] Department of Nutrition and Diabetes Education in [place], [place] [address] [place] [phone] Brandon Mendiola, EDELMIRA, C.N.P., D.N.P. [address] [place] [phone] Scheduled Referrals Name Type Priority Associated Diagnoses Orde r Schedule Nutrition - Group bariatric education visit (clinic) Outpatient Referral Routine Gastric Bypass Status Post Expected: 05/02/2023, Expires: 07/24/2023 documented as of this encounter Visit Diagnoses Diagnosis Gastric Bypass Status Post- Primary documented in this encounter Additional Health Concerns Assessment Noted Time PHQ-9 Depression Total Score: 6 09/29/19 23 11:41 AM CDT documented as of this encounter
--- NOTE | 2023-06-08 13:45 | MR_ITS ---
[address] [address] Phone:?[phone] Fax:?[phone] Referring Physician Information: Cj Castorena M.D. [address] [facility] [address] Phone:?[phone] Fax:?[phone] Patient:Archie Carolina D.O.B:?2005 Sex:?Male Phone:?[phone] [facility] MRN:?[id number] Exam Date:?06/08/2023 EXAM: MRI of the LEFT KNEE, without contrast CLINICAL INFORMATION: Male, 17 years old, with left knee pain. INDICATION: Evaluate knee pain. PRIOR SURGERY: History of MCL reconstruction. PLAIN FILMS: None available. COMPARISONS: Left knee MRI dated 04/30/2022. TECHNICAL INFORMATION: Using a 1.5T MR scanner and a localizing surface coil: sagittals: PD, PDFS coronals: PD, T2FS axials: PD, PDFS SEDATION: None CONTRAST: None FINDINGS: Knee joint: Effusion: Physiologic left knee effusion. Popliteal cyst: None. Loose bodies: None. Subcutaneous and extra-articular soft tissues: Unremarkable. Ligaments: ACL: Intact ACL anteromedial and posterolateral bundles, without sprain or tear. PCL: Intact PCL, without acute or chronic injury. MCL: Status post MCL graft reconstruction with surgical anchors visualized in the medial femoral condyle and medial tibial metaphysis. The proximal surgical anchor is proud to the femoral cortex by approximately 7 mm (axial PD series 3 image 12). Additionally, there is moderate thickening and irregularity of the adjacent graft fibers with linear high signal between the graft and anchor (coronal STIR series 8 image 17 and axial T2FS series 4 image 13). There is mild/moderate attenuation and irregularity of the mid-distal graft fibers. LCL: Intact LCL, without injury. Posterolateral corner: No posterolateral corner soft tissue injury. Popliteus, biceps femoris, iliotibial band, popliteofibular ligament and lateral gastrocnemius are intact. Posteromedial corner: No posteromedial corner soft tissue injury. Semimembranosus, pes anserine tendons and posterior oblique ligament are without injury, tendinopathy or bursitis. Extensor mechanism: Patellar tendon: Intact, without tendinopathy. Quadriceps tendon: Intact, without tendinopathy. Retinacula: Medial and lateral retinacula are intact. Fat pads: Unremarkable infrapatellar Hoffa's, quadriceps and prefemoral fat pads. Medial compartment: Medial meniscus: No articular surface, meniscosynovial junction or root tear. No displacement, extrusion or parameniscal cyst. Medial femoral condyle: No chondromalacia or osteochondral abnormality. Medial tibial plateau: No chondromalacia or osteochondral abnormality. Lateral compartment: Lateral meniscus: No articular surface, meniscosynovial junction or root tear. No displacement, extrusion or parameniscal cyst. Lateral femoral condyle: No chondromalacia or osteochondral abnormality. Lateral tibial plateau: No chondromalacia or osteochondral abnormality. 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 Trochlea: No chondromalacia or osteochondral abnormality. Proximal tibiofibular joint: Unremarkable, without evidence of ligament sprain injury, joint effusion or adjacent marrow edema. Bones: Postoperative changes related MCL reconstruction noted in the distal femur and proximal tibia, as above. No stress/occult fractures or other marrow edema/pathology. IMPRESSION: 1. Status post MCL reconstruction. The proximal surgical anchor is proud to the femoral cortex by approximately 7 mm, which suggest that the anchor has pulled back. Additionally, there is moderate thickening of the proximal graft fibers with linear high signal at the interface with the surgical anchor, which is suspicious for a recurrent injury and correlation for any ongoing evidence of valgus instability is recommended. 2. 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 3. No joint effusion or popliteal (Encarnacion's) cyst. 4. No ACL, PCL, or LCL sprain/tear. 5. No medial or lateral meniscal tear. 6. No osteochondral abnormality of the medial or lateral compartment. BC Electronically signed on 06/09/2023 9:05:00 AM by Roel Stringer M.D.
== END 2023-06-08 13:34 | disposition home or self-care (01) ==
LOC: MRI 13:33
PROVIDERS: PCP Family Medicine; Visit Provider Orthopaedic Surgery Sports Medicine
DX: M25.562 Pain in left knee (principal); M22.42 Chondromalacia patellae, left knee
CPT/HCPCS: 73721

== ENCOUNTER 2023-07-07 06:55 | Day surgery (SDC) | payer MEDICAID, SELFPAY ==
[2023-07-07] VITALS (17 sets, daily range): BP systolic 134–161; BP diastolic 74–120; PULSE 42–56; RESP 14–16; TEMP 36.2–36.6; O2SAT 94–100; BMI 40.2
[2023-07-07] MEDS: LACTATED RINGERS 1000 ML 1,000 ML 100 ML IV ×2 (06:55→10:32)
--- OUTSIDE RECORDS SUMMARY | 2023-07-07 06:57 | XMS_ITS | Encounter Summary ---
Author Name Unknown Organization [facility] Address [address] [place] [address] Care Team Providers Care Burn Center Nurse Name Role Phone None Reported, Pcp Primary Care Provider Unavail able Reason for Visit * Reason Onset Date Comments Follow-up Orders 04/12/2023 Encounter Details Date Type Department Care Team (Latest Contact Info) Description 04/12/2023 Clinical Communication Division of Endocrinology in [place], [place] [address] [place] [address] Brandon Mendiola APRN, C.N.P., D.N.P. [address] [place] [phone] Follow-up Orders Social History Tobacco Use Types Packs/Day Years Used Date Smoking Tobacco: Never Smokeless Tobacco: Never Alcohol Use Standard Drinks/Week Comments Never 0 (1 standard drink = 0.6 oz pur e alcohol) [facility] Utilities Answer Date Recorded In the past 12 months has [employer] gas, oil, or water [employer] threatened to shut off services in your [...] your living situation today? I have a [facility] place to live 03/03/2023 Sex and Gender Information Value Date Recorded Sex Assigned at Male 09/11/2022 7:49 AM CDT Gender Identity Male 09/11/2022 7:49 AM CDT Sexual Orientation Straight 09/11/2022 7: 49 AM CDT documented as of this encounter Plan of Treatment Upcoming Encounters Date Type Department Care Team (Latest Contact Info) Description 09/06/2023 3:30 PM CDT Clinical Communication Virtual Review in [place], [place] [address] [place] [address] 09/07/2023 4:30 PM CDT Telemedicine Division of Endocrinology in [place], [place] [address] [place] [phone] Monse Henao M.D. [address] [place] [phone] documented as of this encounter Visit Diagnoses Not on filedocumented in this encounter Additional Health Concerns Assessment Noted Time PHQ-9 Depression Total Score: 6 09/29/19 23 11:41 AM CDT documented as of this encounter Care Teams Burn Center Nurse Relationship Specialty Start Date End Date None Reported, Pcp PCP - General Family Medicine 04/03/23 documented as of this encounter
--- OUTSIDE RECORDS SUMMARY | 2023-07-07 06:57 | XMS_ITS | Encounter Summary ---
Author Name Unknown Organization [facility] Address [address] [place] [address] Care Team Providers Care Confidential Investigator Name Role Phone None Reported, Pcp Primary Care Provider Unavail able Reason for Visit * Reason Comments Abdominal Pain Encounter Details Date Type Department Care Team (Late st Contact Info) Description 04/03/2023 3:23 PM [facility] - 04/03/2023 8:19 PM [facility] Emergency [facility] Emergency Department [address] [place] [address] John Seth, P.AMiguel-Laurel. [address] [place] [phone] Abdominal Pain (Primary Dx) Discharge Disposition: Home or Self Care Social History Tobacco Use Types Packs/Day Years Used Date Smoking Tobacco: Never Smokeless Tobacco: Never Alcohol Use Standard Drinks/Week Comments Never 0 (1 standard drink = 0.6 oz pur e alcohol) [facility] Utilities Answer Date Recorded In the past 12 months has e [employer], gas, oil, or water [employer] threatened to shut off services in your [...] your living situation today? I have a [facility] place to live 03/03/2023 Sex and Gender Information Value Date Recorded Sex Assigned at Male 09/11/2022 7:49 AM CDT Gender Identity Male 09/11/2022 7:49 AM CDT Sexual Orientation Straight 09/11/2022 7: 49 AM CDT documented as of this encounter Last Filed Vital Signs Vital Sign Reading Time Taken Comments Blood Pressure 151/84 04/03/2023 8:15 PM [facility] Pulse 58 04/03/2023 8:15 PM [facility] Temperature 37 ??C (98.6 ??F) 04/03/2023 6:46 PM [facility] Respiratory Rate 20 04/03/2023 6:46 PM [facility] Oxygen Saturation 100% 04/03/2023 8:15 PM [facility] Inhaled Oxygen Concentration - - Weight 134 kg (295 lb 10.2 oz) 04/03/2023 3:27 P M [facility] Height - - Body Mass Index 46.35 03/25/2023 1:47 PM [facility] documented in this encounter Discharge Instructions * Discharge Instructions* John Seth P.A.-C. - 04/03/2023 7:43 PM [facility] Eat frequent smaller meals per day Follow-up with your surgeon if you continue to have abdominal pain E HAND * Attachments The following attachments cannot be sent through Care Everywhere. * Abdominal Pain Adult (Tristanian) documented in this encounter Medications at Time [...] bariatric surgery 90 tablet 3 03/25/2023 pediatric xzuvfhfoiqww-dhkm-ihd erals (FLINTSTONES COMPLETE) chewable tablet Chew 1 [...] him nauseate d History provided by: Patient naturalist needed/used: no REVIEW OF SYSTEMS Constitutional: Negative [...] Abdominal Pain John Seth P.A.-C. 04/03/231944 E HAND * Margarita Oakley, RMiguelN. - 04/03/2023 3:29 [...] water. Margarita Oakley R.N. 04/03/23 1533 E HAND documented in this encounter Plan of Treatment Upcoming Encounters Date Type Department Care Team (Latest Contact Info) Description 09/06/2023 3:30 PM CDT Clinical Communication Virtual Review in [place], [place] 200 [place] [address] 09/07/2023 4:30 PM CDT Telemedicine Division of Endocrinology in [address] [phone] Monse Henao M.D. [address] [place] [phone] documented as of this encounter Procedures Procedure Name Priority Date/Time Associated Diagnosis Comments CT ABDOMEN PELVIS WITH IV CONTRAST RAD - Semiurgent (Fast; most ED patients; some inpatients) 04/03/2023 5:56 PM [facility] CBC WITH DIFFERENTIAL, B STAT 04/03/2023 3:51 PM [facility] LACTATE, B/P STAT 04/03/2023 3:51 PM [facility] BASIC METABOLIC PANEL, S/P STAT 04/03/2023 3:51 PM [facility] documented in this encounter Results * CT Abdomen Pelvis with IV Contrast (04/03/2023 5:56 PM [facility]) Anatomical Region Laterality Modality Abdomen, Pelvis, Abdominal R ST LOS, Abdominal ARZ LOS, Abdominal FLA LOS N/A Computed Tomograp hy, Computed Tomography 04/03/2023 5:56 PM [facility] Impressions 04/03/2023 6:48 PM [facility] 1. No acute abnormality in the abdomen or pelvis. Specifically, no bowel obstruction. Narrative 04/03/2023 6:48 PM [facility] EXAM: ??CT ABDOMEN PELVIS WITH IV CONTRAST [...] CT PROCEDURES * Lactate (04/03/2023 3:51 PM [facility]) Lactate, P 1.3 0.5 - 2.2 mmol/L 04/03/2023 4:31 PM [facility] Blood (Blood, Venous) 04/03/2023 3:51 PM [facility] 04/03/2023 3:58 PM [facility] John Seth P.A.-C. LAB BLOOD NON ADD -ON [facility] [address] [place] [address], [facility] STMA [facility] [address] [place] [address] * (ABNORMAL) CBC with Differential, Blood (04/03/2023 3:51 PM [facility]) Pathologist [facility] Hemoglobin 16.1 13.2 - 16.6 g/dL 04/03/2023 4:00 PM [facility] Hematocrit 45.7 38.3 - 48.6 % 04/03/2023 4:00 PM [facility] Erythrocytes 5.46 4.35 - 5.65 x10(12)/L 04/03/2023 4:00 PM [facility] MCV 83.7 78.2 - 97.9 fL 04/03/2023 4:00 PM [facility] RBC Distrib Width 13.2 11.8 - 14.5 % 04/03/2023 4:00 PM [facility] Platelet Count 313 135 - 317 x10(9)/L 04/03/2023 4:00 PM [facility] Leukocytes 10.7(H) 3.4 - 9.6 x10(9)/L 04/03/2023 4:00 PM [facility] Neutrophils 7.37(H) 1.56 - 6.45 x10(9)/L 04/03/2023 4:00 PM [facility] Lymphocytes 2.57 0.95 - 3.07 x10(9)/L 04/03/2023 4:00 PM [facility] Monocytes 0.57 0.26 - 0.81 x10(9)/L 04/03/2023 4:00 PM [facility] Eosinophils 0.14 0.03 - 0.48 x10(9)/L 04/03/2023 4:00 PM [facility] Basophils 0.07 0.01 - 0.08 x10(9)/L 04/03/2023 4:00 PM [facility] Blood (Blood, Venous) 04/03/2023 3:51 PM [facility] 04/03/2023 3:57 PM [facility] John Seth P.A.-C. LAB BLOOD ADD-ON [facility] [address] [place] [address], [facility] STMA [facility] [address] [place] [address] [facility] [address] [place] [address] * (ABNORMAL) Basic Metabolic Panel (04/03/2023 3:51 PM [facility]) [facility] Potassium, P 3.5(L) 3.6 - 5.2 mmol/L 04/03/2023 4:36 PM [facility] Sodium, P 142 135 - 145 mmol/L 04/03/2023 4:36 PM [facility] Chloride, P 100 98 - 107 mmol/L 04/03/2023 4:36 PM [facility] Bicarbonate, P 25 22 - 29 mmol/L 04/03/2023 4:36 PM [facility] Anion Gap, P 17(H) 7 - 15 04/03/2023 4:36 PM [facility] BUN (Blood Urea Nitrogen), P 9 8 - 24 mg/dL 04/03/2023 4:36 PM [facility] Creatinine 0.74 0.74 - 1.35 mg/dL 04/03/2023 4:36 PM [facility] Estimated GFR (eGFR) >90 >=60 mL/min/BSA 04/03/2023 4:36 PM [facility] Comment: Estimated GFR calculated using the 2020 CKD_EPI creatinine equation. Calcium, Total, P 9.8 8.6 - 10.0 mg/dL 04/03/2023 4:36 PM [facility] Glucose, P 103 70 - 140 mg/dL 04/03/2023 4:36 PM [facility] Blood (Blood, Venous) 04/03/2023 3:51 PM [facility] 04/03/2023 3:57 PM [facility] John Seth P.A.-C. LAB BLOOD ADD-ON [facility] [address] [place] [address], [place] STMA [facility] [address] [place] [address] documented in this encounter Visit Diagnoses Diagnosis [...] For 1 dose Given 04/03/2023 5:51 PM [facility] 200 mL ketorolac injection 15 mg (TORADOL) 15 mg, intravenous, Once, On 04/03/23 at 1910, For 1 dose, Adult IV push rate: Over 15 seconds. Peds IV push rate: Over 1 minute. Doses > 15 mg IV/IM are discouraged due to lack of additional analgesic benefit. Given 04/03/2023 7:21 PM [facility] 15 mg ondansetron (PF) injection 4 mg (ZOFRAN) 4 mg, intravenous, Once, On 04/03/23 at 1909, For 1 dose Given 04/03/2023 7:20 PM [facility] 4 mg sodium chloride (PF) 0.9 % injection 1-100 mL 1-100 mL, intravenous, Once, On 04/03/23 at 1747, For 1 dose, Imaging Protocol Orders, Dose per Radiant Medication Guidelines Given 04/03/2023 5:52 PM [facility] 50 mL sodium chloride 0.9 % injection [...] Every 12 hours scheduled, First dose on 2/10/24 at 2100, Peripheral Intravenous Catheter and Rapid Infusion Catheter, when no infusion to maintain patency documented in this encounter Active and Recently Administered Medications Times are shown in [facility]. Scheduled Medication Order 04/01/2023 04/02/2023 04/03/2023 ketorolac [...] dose 192 (Given - Provid er: Jil Goldstein, R.N.) sodium chloride (PF) 0.9 % injection [...] (Not Given - Pr ovider: Kadie Mireles R.N. - Reason: Order parameters not met) iohexoL [...] documented as of this encounter Care Teams Confidential Investigator Relationship Specialty Start Date End Date None Reported, Pcp PCP - General Family Medicine 04/03/23 documented as of this encounter
--- OUTSIDE RECORDS SUMMARY | 2023-07-07 06:57 | XMS_ITS ---
Author Name Unknown Organization [facility] Address [address] [place] [address] Care Team Providers Care Spinner Cap Frame Name Role Phone None Reported, Pcp Primary Care Provider Unavail able Status:Enrolled (Active) Start date:08/03/2022 Enrollment date:08/03/2022 Current support & services provided:Pre-Op Related social determinants of health:Food Insecurity, Transportation Needs Continued Care and Services Coordination
--- OUTSIDE RECORDS SUMMARY | 2023-07-07 06:57 | XMS_ITS | Clinical Summary ---
Author Name Unknown Organization [facility] Address [address] [place] [address] Care Team Providers Care Die Tester Name Role Phone None Reported, Pcp Primary Care Provider Unavail able Source Comments Patient records contain information from all sites at [facility]. For routine questions regarding patient records, call [phone] during business hours, M-F 8:00 AM - 5:00 PM Central Time. Record requests for emergency care only can be directed to [phone] at any time.[facility] Allergies No known active allergies Medications Medication [...] Encounters Date Type Department Care Team Description 06/11/2023 8:00 AM CDT Telemedicine Department of Nutrition and Diabetes Education in [place], [place] [address] [place] [address] Brandon Mendiola APRN, C.N.P., D.N.P. 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 Gastric Bypass Status Post Discharge Disposition: Home or Self Care 04/12/2023 Clinical Communication Division of Endocrinology in [place], [place] [address] [place] [address] Brandon Mendiola APRN, C.N.P., D.N.P. Follow-up Orders from Last 3 Months Family History Medical [...] Mateusz Mother nallely Paternal Grandmother Alfonso Sister Alana Social History Tobacco Use Types Packs/Day Years Used Date Smoking Tobacco: Never Smokeless Tobacco: Never Tobacco Cessation:Counseling Given: Not Answered Alcohol Use Standard Drinks/Week Comments Never 0 (1 standard drink = 0.6 oz pur e alcohol) [facility] Utilities Answer Date Recorded In the past 12 months has th e electric, gas, oil, or water company [...] your living situation today? I have a [facility] place to live 03/03/2023 Sex and Gender Information Value Date Recorded Sex Assigned at Male 09/11/2022 7:49 AM CDT Gender Identity Male 09/11/2022 7:49 AM CDT Sexual Orientation Straight 09/11/2022 7: 49 AM CDT Last Filed Vital Signs Vital Sign Reading Time Taken Comments Blood Pressure 151/84 04/03/2023 8:15 PM [employer] ASSEMBLER Pulse 58 04/03/2023 8:15 PM SMALL PRODUCTS II ASSEMBLER Temperature 37 ??C (98.6 ??F) 04/03/2023 6:46 PM SMALL PRODUCTS II ASSEMBLER Respiratory Rate 20 04/03/2023 6:46 PM SMALL PRODUCTS II ASSEMBLER Oxygen Saturation 100% 04/03/2023 8:15 PM [employer] II ASSEMBLER Inhaled Oxygen Concentration - - Weight 122 kg (268 lb 15.4 oz) 06/11/2023 8:18 A M CDT Height 173 cm (5' 8.11) 06/11/2023 8:18 AM CDT Body Mass Index 40.76 06/11/2023 8:18 AM CDT Plan of Treatment Upcoming Encounters Date Type Department Care Team (Latest Contact Info) Description 09/06/2023 3:30 PM CDT Clinical Communication Virtual Review in [place], [place] [address] [place] [address] 09/07/2023 4:30 PM CDT Telemedicine Division of Endocrinology in [place], [place] [address] [place] [address] Monse Henao M.D. [address] [place] [address] Health Maintenance Due Date Last Done Comments [...] Well Child Check-Up (WCC) 08/25/2022 COVID-19 Vaccine ( season) 2022 07/28/2022 Influenza Vaccine (#1) 2022 01/03/2014 Office Visit for Blood Pressure Check / Re-check 12/12/2022 09/11/2022 Depression Screening (Annual PHQ-2) 02/22/2023 DTaP,Tdap,and Td Vaccines (5 - Td or Tdap) 09/23/2025 09/24/2015, 04/07/2004, 02/04/2004, Additional history exists Pneumococcal vaccine (0-64 years) Aged Out 04/07/2004, 02/04/2004, 2003 No longer eligible based on patient's age to complete this topic MMR Vaccines Completed 02/19/2009, 11/14/2008 Varicella Vaccines Completed 02/19/2009, 11/14/2008 Meningococcal Vaccine Aged Out 09/24/2015 No sam arsalan eligible based on patient's age to complete this topic HPV Vaccines Completed 10/09/2019, 09/24/2015 Medical Devices Implanted Type Area Compensation And Benefits Administrator Device Identifier Shelf Expiration Date Model / Serial / Lot Clp May End Intnl Endo 5x11 - [id number] Implanted:Qt y: 1 on 03/03/2023 by Zeus Santana M.D. at [facility] Hardware e.g. pins/screws /rods N/A: Abdomen [employer] [id number] 10/22/2025 [id number] / / [id number] Advance Directives For more information, please contact: [phone] * Full Code (Latest Code Status on File) Date Activated Date Inactivated Comments 03/03/2023 12:13 PM 03/05/2023 4:14 PM Question Answer Comments Full Code: Discussed * Full Code Date Activated Date Inactivated Comments 03/03/2023 5:46 AM 03/03/2023 12:13 PM Question Answer Comments Full Code: Discussed Care Teams Die Tester Relationship Specialty Start Date End Date None Reported, Pcp PCP - General Family Medicine 04/03/23
--- OUTSIDE RECORDS SUMMARY | 2023-07-07 06:57 | XMS_ITS | Clinical Summary ---
Author Name Unknown Organization [facility] Address [address] [place] [address] Care Team Providers Care Timber Cutter Name Role Phone Unavailable Primary Care Provider [...]
--- OUTSIDE RECORDS SUMMARY | 2023-07-07 06:57 | XMS_ITS | Encounter Summary ---
Author Name Unknown Organization [facility] Address [address] [place] [address] Care Team Providers Care Raw Stock Drier Tender Name Role Phone None Reported, Pcp Primary Care Provider Unavail able Encounter Details Date Type Department Care Team (Late st Contact Info) Description 06/11/2023 8:00 AM CDT Telemedicine Department of Nutrition and Diabetes Education in [place], [place] [address] [place] [phone] Brandon Mendiola, EDELMIRA, C.N.P., D.N.P. [address] [place] [phone] Fam Aguilar, RAMON, LD [address] [place] [phone] Gastric Bypass Status Post Social History Tobacco Use Types Packs/Day Years Used Date Smoking Tobacco: Never Smokeless Tobacco: Never Alcohol Use Standard Drinks/Week Comments Never 0 (1 standard drink = 0.6 oz pur e alcohol) [facility] Utilities Answer Date Recorded In the past 12 months has e [employer], gas, oil, or water [employer] threatened to shut off services in [...] your living situation today? I have a [facility] place to live 03/03/2023 Sex and [...] - Inhaled Oxygen Concentration - - Weight 122 kg (268 lb 15.4 oz) 06/11/2023 8:18 A M CDT Height 173 cm (5' 8.11) 06/11/2023 8:18 AM CDT Body Mass Index 40.76 06/11/2023 8:18 AM CDT documented in this encounter Progress Notes * Fam Aguilar, RDN, LD - 06/11/2023 8:00 AM CDT Patient presents for two month status post bariatric surgery/procedure nutrition group visit. Patient will be able to identify the nutritional guidelines recommended for two month status post bariatric surgery/procedure and adopt the habits that are needed for improved health and maintenance of weight loss. The objectives of this class are as follows: -Discuss causes of common post-surgical/procedure nutrition problems -Review fluid recommendations -Review protein intake recommendations -Discuss vitamin/mineral supplements -Explain regular texture diet and appropriate portion sizes -Reinforce healthy lifestyle changes ASSESSMENT: Patient attended and participated in post bariatric group class today. Dietitian did not meet with patient individually due to patient not having additional nutrition related questions. Will visit with the endocrine JUNIOR 1:1 at a later time to discuss any medical concerns. See patient nutrition questionnaire below: Question 06/11/2023 8:10 AM CDT - Filed by Patient What was the date of your bariatric surgery? March 03 2023 What type of weight loss surgery did you have? Endoscopic sleeve gastroplasty Did you lose weight prior to your bariatric surgery? Yes Have you ever been diagnosed with obstructive sleep apnea? Yes Since surgery, have you ever been told you have loud or disruptive snoring? No Are you having problems with nausea? No Are you having problems with vomiting? No Are you having problems with reflux or heartburn? No Are you having problems with diarrhea? No Are you having problems with food blockage? No Are you having problems with abdominal pain? No Are you having problems with dumping syndrome? No Are you having problems with constipation? No Are you having problems with gas or bloating? No What type of diet are you on? Regular How many meals per day do you eat, not including beverages and snacks? 3 How many snacks do you eat daily? 1 How many cups (8 ounces = 1 cup) of milk do you consume daily? 1 How often do you have a drink containing alcohol? Never What sources of protein do you eat or drink? Animal proteins (beef, chicken, turkey, pork, fish, seafood, eggs) Do you take a multi-vitamin or multi-mineral? Yes Do you take a calcium supplement? Yes Do you take a Vitamin B12? Yes Do you take an iron supplement? Yes Do you take Vitamin D? Yes How many times per week do you exercise? 7+ How many minutes do you spend per exercise session? 61+ What types of exercise do you participate in? Walking Jogging Running Strength training How many times do you eat out or order in for breakfast? 0 How many times do you eat out or order in for lunch? 0 How many times do you eat out or order in for supper? 0 List any specific goal(s) you would like to work on. Eat on a regular basis How much weight did you lose? 10 pounds Have you ever been prescribed a device that helps you breathe while sleeping, such as a CPAP, BiPAP, dental device, or related technology? No What type of milk do you drink? [place]/Nut What is the name or type of multi-vitamin or multi-mineral (e.g., Flintstones???)? Flintstones Complete What frequency do you take the multi-vitamin or multi-mineral each day (e.g., two times a day)? Once a day Is the multi-vitamin or multi-mineral taken with meals? Yes What is the name or type of calcium supplement (e.g., Tums?? Ultra)? TUMS What is the dose of calcium supplement? Im no sure What frequency do you take the calcium supplement each day (e.g., two times a day)? 1 tablet daily Is the calcium supplement taken with meals? Yes What type of Vitamin B12 do you take? Injection What is the frequency of B12 injection (e.g., one time per month)? Every 30 days What is the name or type of iron supplement (e.g., Vitron-C??)? Im bot kenan What is the dose of the iron supplement (e.g., one tablet)? 65 mg At what frequency do you take the iron supplement (e.g. two times per day)? 1 time daily Is the iron supplement taken with meals? Yes What is the name or type of Vitamin D (e.g., Cholecalciferol)? Al What is the dose of the Vitamin D (e.g., one tablet)? 1,000 mg At what frequency do you take the Vitamin D (e.g. two times per day)? 1 time daily Is the Vitamin D taken with meals? Yes Follow up per protocol. Patient Census: 5 Total Group Time: 65 minutes The patient attended a virtual group class via real-time audio/video technology by Sebastian Aguilar RDN, LD in [facility] to patient in patient home. I introduced myself to the group and limits to confidentially were reviewed. documented in this encounter Plan of Treatment Upcoming Encounters Date Type Department Care Team (Latest Contact Info) Description 09/06/2023 3:30 PM CDT Clinical Communication Virtual Review in [address] [phone] 09/07/2023 4:30 PM CDT Telemedicine Division of Endocrinology in [address] [phone] Monse Henao M.D. [address] [place] [phone] documented as of this encounter Visit Diagnoses Diagnosis Gastric Bypass Status Post documented in this encounter Additional Health Concerns Assessment Noted Time PHQ-9 Depression Total Score: 6 09/29/19 23 11:41 AM CDT documented as of this encounter Care Teams Raw Stock Drier Tender Relationship Specialty Start Date End Date None Reported, Pcp PCP - General Family Medicine 04/03/23 documented as of this encounter
--- OUTSIDE RECORDS SUMMARY | 2023-07-07 06:57 | XMS_ITS | Referral Summary ---
Author Name Unknown Organization [facility] Address [address] [place] [id number] Care Team Providers Care Mri Assistant Name Role Phone None Reported, Pcp Primary Care Provider Unavail able Source Comments Patient records contain information from all sites at [facility]. For routine questions regarding patient records, call [phone] during business hours, M-F 8:00 AM - 5:00 PM Central Time. Record requests for emergency care only can be directed to [phone] at any time.[facility] Encounters Date Type Department Care Team Description 06/11/2023 8:00 AM CDT Telemedicine Department of Nutrition and Diabetes Education in [place], [place] [address] [place] [phone] Brandon Mendiola APRN, C.N.P., D.N.P. 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 Gastric Bypass Status Post Discharge Disposition: Home or Self Care 04/12/2023 Clinical Communication Division of Endocrinology in [place], [place] [address] [place] [phone] Brandon Mendiola APRN, C.N.P., D.N.P. Follow-up Orders from Last 3 Months Allergies No known [...] drink = 0.6 oz pur e alcohol) [facility] Utilities Answer Date Recorded In the past 12 months has e [employer], [employer], oil, or water [email or web address] threatened to shut off services in your [...] situation today? I have a [facility] place to live 03/03/2023 Sex and Gender Information Value Date Recorded Sex Assigned at Male 09/11/2022 7:49 AM CDT Gender Identity Male 09/11/2022 7:49 AM CDT Sexual Orientation Straight 09/11/2022 7: 49 AM CDT Last Filed Vital Signs Vital Sign Reading Time Taken Comments Blood Pressure 151/84 04/03/2023 8:15 PM ASSEMBLY CLEANER Pulse 58 04/03/2023 8:15 PM ASSEMBLY CLEANER Temperature 37 ??C (98.6 ??F) 04/03/2023 6:46 PM ASSEMBLY CLEANER Respiratory Rate 20 04/03/2023 6:46 PM ASSEMBLY CLEANER Oxygen Saturation 100% 04/03/2023 8:15 PM ASSEMBLY CLEANER Inhaled Oxygen Concentration - - Weight 122 kg (268 lb 15.4 oz) 06/11/2023 8:18 A M CDT Height 173 cm (5' 8.11) 06/11/2023 8:18 AM CDT Body Mass Index 40.76 06/11/2023 8:18 AM CDT Plan of Treatment Upcoming Encounters Date Type Department Care Team (Latest Contact Info) Description 09/06/2023 3:30 PM CDT Clinical Communication Virtual Review in [place], [place] 200 [place] [phone] 09/07/2023 4:30 PM CDT Telemedicine Division of Endocrinology in [place], [place] [address] [place] [phone] Monse Henao M.D. [address] [place] [phone] Medical Devices Implanted Type Area Poultry Hatchery Laborer Device Identifier Shelf Expiration Date Model / Serial / Lot Clp May Intnl Endo 5x11 - [id number] Implanted:Qt y: 1 on 03/03/2023 by Zeus Santana M.D. at [facility] Hardware e.g. pins/screws /rods N/A: Abdomen Medtronic [id number] 10/22/2025 [id number] / / [id number] Advance Directives For more information, please contact: [phone] * Full Code (Latest Code Status on File) Date Activated Date Inactivated Comments 03/03/2023 12:13 PM 03/05/2023 4:14 PM Question Answer Comments Full Code: Discussed * Full Code Date Activated Date Inactivated Comments 03/03/2023 5:46 AM 03/03/2023 12:13 PM Question Answer Comments Full Code: Discussed Care Teams Mri Assistant Relationship Specialty Start Date End Date None Reported, Pcp PCP - General Family Medicine 04/03/23
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
--- OUTSIDE RECORDS SUMMARY | 2023-07-07 06:57 | XMS_ITS ---
Author Name Unknown Organization [facility] Address [address] [place] [address] Care Team Providers Care Fleet Sales Manager Name Role Phone Unavailable Unavailable Unavailable Surgery Details Not on file Complications Check Surgery Details section. Procedure Estimated Blood Loss Check Surgery Details section. Procedure Findings Check Surgery Details section. Procedure Specimens Taken Check Surgery Details section.
--- OUTSIDE RECORDS SUMMARY | 2023-07-07 06:57 | XMS_ITS | Referral Summary ---
Author Name Unknown Organization [facility] Address [address] [place] [address] Care Team Providers Care Foundry Technician Name Role Phone Unavailable Primary Care [...]
--- OUTSIDE RECORDS SUMMARY | 2023-07-07 06:57 | XMS_ITS | Encounter Summary ---
Author Name Unknown Organization [facility] Address [address] [place] [address] Care Team Providers Care Line Inspector Name Role Phone None Reported, Pcp Primary Care Provider Unavail able Encounter Details Date Type Department Care Team (Latest Contact Info) Description 04/19/2023 7:10 AM RAWHIDE BONE ROLLER - 04/19/2023 11:59 PM [facility] Hospital Encounter Department of Laboratory Medicine and Pathology, [facility] in [place], [place] [address] [place] [phone] Brandon Mendiola APRN, C.N.P., D.N.P. [address] [place] [phone] Gastric Bypass Status Post Discharge Disposition: Home or Self Care Social History Tobacco Use Types Packs/Day Years Used Date Smoking Tobacco: Never Smokeless Tobacco: Never Alcohol Use Standard Drinks/Week Comments Never 0 (1 standard drink = 0.6 oz pur e alcohol) [facility] Utilities Answer Date Recorded In the past 12 months has e [employer], gas, oil, or water [employer] threatened to shut off services in your [...] your living situation today? I have a [facility] place to live 03/03/2023 Sex and [...] bariatric surgery 90 tablet 3 03/25/2023 pediatric xoctfgkfmgbm-zbye-rct erals (FLINTSTONES COMPLETE) chewable tablet Chew 1 [...] PM CDT Clinical Communication Virtual Review in [place], [place] 200 [place] [phone] 09/07/2023 4:30 PM CDT Telemedicine Division of Endocrinology in [place], [place] [address] [place] [phone] Monse Henao M.D. [address] [place] [phone] Scheduled Orders Name Type Priority Associated Diagnoses [...] documented as of this encounter Care Teams Line Inspector Relationship Specialty Start Date End Date None Reported, Pcp PCP - General Family Medicine 04/03/23 documented as of this encounter
--- NOTE | 2023-07-07 07:36 | W.PM.H&PU ---
History & Physical Update History & Physical Update H&P Reviewed and patient assessed: No changes noted
--- NOTE | 2023-07-07 08:29 | SUR.PREOP ---
TIME?OUT:?0830 PT/RN/MDA?VERIFICATION?OF?SURGICAL?SITE,?PROCEDURE,?AND?CONSENT OBTAINED?PRIOR?TO?INVASIVE?PROCEDURE.
[2023-07-07] MEDS: MIDAZOLAM HCL 1 MG/ML inj IVP (08:40)
[2023-07-07] MEDS: fentaNYL 100 MCG/2 ML inj IVP (08:40)
--- NOTE | 2023-07-07 08:47 | W.ANESCHARGE ---
Anesthesia Charges Start Date/Time Anesthesia Start Date: 07/07/23 Anesthesia Start Time: 09:08 Stop Date/Time Anesthesia Stop Date: 07/07/23 Anesthesia Stop Time: 11:23
--- NOTE | 2023-07-07 08:48 | P.NB_ITS ---
Nerve Block Nerve Block Time Seen by Provider: 08:41 Date Seen: 07/07/23 Type of block requested by surgeon for post-operative analgesia: geniculars Side: left Time out performed: Yes Verification of patient name: Yes Verification of date of : Yes Site marking: site marked Name of person performing procedure: Thony Continuous monitoring Was continuous monitoring of O2 sat, B/P, awake overnight monitor, recorded every 15 minutes?: Yes Procedure Checklist: sterile prep, needles and gloves Medications given in 5ml increments after negative aspiration: Ropivicaine %: 0.5 mL: 9 Needle gauge: 25 Patient tolerated procedure well: Yes Block Charges Block Charge (with Pro Fee): Genicular Nerve Block Use of Ultrasound Machine for Block: No
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
[2023-07-07] MEDS: CEFAZOLIN 2 GM in 0.9 % SODIUM CHLORIDE Mini-bag 100 ML IVPB (09:33)
--- NOTE | 2023-07-07 09:35 | XR_ITS ---
Patient: MACHELLE HYMAN Facility:?[facility] Patient ID:?[id number] Site Patient ID:?[id number]. Site :?[id number] Study:?XRay-Knee Left 2 view w/ c-arm-07/07/2023 10:51:49 AM Ordering Physician:?Cj Castorena Final Report: Indication: Intra op button placement left MCL repair Technique: One fluoroscopic image of the left knee. Fluoroscopic time 7 seconds. IMPRESSION: Fluoroscopic guidance for orthopedic surgery. Dictated by Steven Siddiqui MD @ 07/07/2023 12:51:54 PM Signed by:?Steven Siddiqui MD @07/07/2023 12:51:54 PM (Electronic Signature)
--- NOTE | 2023-07-07 11:25 | W.ANESCHARGE ---
Anesthesia Charges Start Date/Time Anesthesia Start Date: 07/07/23 Anesthesia Start Time: 09:08 Stop Date/Time Anesthesia Stop Date: 07/07/23 Anesthesia Stop Time: 11:23
[2023-07-07] MEDS: fentaNYL 100 MCG/2 ML inj 50 MCG IVP (11:38)
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
== END 2023-07-07 13:19 | disposition home or self-care (01) ==
LOC: OR 06:55
PROVIDERS: PCP Family Medicine; Visit Provider Orthopaedic Surgery Sports Medicine
PROC: (CPT 27428; principal; 2023-07-07 09:15)
PROC: (CPT 20680; 2023-07-07 09:15)
DX: S83.412A Sprain of medial collateral ligament of left knee, initial encounter (principal); T84.125A Displacement of internal fixation device of left femur, initial encounter; G89.18 Other acute postprocedural pain; E66.01 Morbid (severe) obesity due to excess calories; Z68.41 Body mass index [BMI] 40.0-44.9, adult
CPT/HCPCS: 27427; 20680; 01400; 64447; 64454; 73560; 76942; C1713; C1762; J0690; J1100; J2250; J2405; J2704; J2795; J3010; J7120; L1833

== ENCOUNTER 2023-09-01 07:05 | Outpatient (CLI) | payer OTHER, SELFPAY ==
--- OUTSIDE RECORDS SUMMARY | 2023-09-08 18:27 | XMS_ITS | Referral Summary ---
Author Organization [facility] Address [address] [place] [address] Care Team Providers Care College Teacher Name Role Phone Unavailable Primary Care Provider [...]
--- OUTSIDE RECORDS SUMMARY | 2023-09-08 18:27 | XMS_ITS | Clinical Summary ---
Author Organization [facility] Address [address] [place] [address] Care Team Providers Care Supervisor Records Change Name Role Phone None Reported, Pcp Primary Care Provider Unavail able Source Comments Patient records contain information from all sites at [facility]. For routine questions regarding patient records, call [phone] during business hours, M-F 8:00 AM - 5:00 PM Central Time. Record requests for emergency care only can be directed to [phone] at any time.[facility] Allergies No known active allergies Medications Medication [...] Department of Nutrition and Diabetes Education in [place], [place] [address] [place] [address] Brandon Mendiola APRN, C.N.P., D.N.P. Fam Aguilar, RAMON, LD Gastric Bypass Status Post from Last 3 Months Family History Medical History Relation Name Comments Arthritis Father Mac Diabetes Father Mac Hyperlipidemia Father Mac Hypertension Father Mac Obesity Father Amc ADD Father's Sister Michelle Asthma Father's Sister [...] drink = 0.6 oz pur e alcohol) [facility] Utilities Answer Date Recorded In the past 12 months has e [employer], gas, oil, or water [employer] threatened to shut off services in your [...] Comments Blood Pressure 151/84 04/03/2023 8:15 PM TOP SPOTTER Pulse 58 04/03/2023 8:15 PM TOP SPOTTER Temperature 37 ??C (98.6 ??F) 04/03/2023 6:46 PM TOP SPOTTER Respiratory Rate 20 04/03/2023 6:46 PM TOP SPOTTER Oxygen Saturation 100% 04/03/2023 8:15 PM TOP SPOTTER Inhaled Oxygen Concentration - - Weight 122 kg (268 lb 15.4 oz) 06/11/2023 8:18 A M CDT Height 173 cm (5' 8.11) 06/11/2023 8:18 AM CDT Body Mass Index 40.76 06/11/2023 8:18 AM CDT Plan of Treatment Health Maintenance Due Date [...] year Well Child Check-Up 08/25/2022 COVID-19 Vaccine ( season) 2022 07/28/2022 Office Visit for Blood [...] 10/09/2019, 09/24/2015 Medical Devices Implanted Type Area Line Closer Device Identifier Shelf Expiration Date Model / Serial / Lot Clp Apr End Intnl Endo 5x11 - [id number] Implanted:Qt y: 1 on 03/03/2023 by Zeus Santana M.D. at [facility] Hardware e.g. pins/screws /rods N/A: Abdomen Medtronic [id number] 10/22/2025 [id number] / / [id number] Advance Directives For more information, please contact: [phone] * Full Code (Latest Code Status on File) Date Activated Date Inactivated Comments 03/03/2023 12:13 PM 03/05/2023 4:14 PM Question Answer Comments Full Code: Discussed * Full Code Date Activated Date Inactivated Comments 03/03/2023 5:46 AM 03/03/2023 12:13 PM Question Answer Comments Full Code: Discussed Care Teams Supervisor Records Change Relationship Specialty Start Date End Date None Reported, Pcp PCP - General Family Medicine 04/03/23
--- OUTSIDE RECORDS SUMMARY | 2023-09-08 18:27 | XMS_ITS | Clinical Summary ---
Author Organization [facility] Address [address] [place] [address] Care Team Providers Care Dag Sprayer Name Role Phone Unavailable Primary Care Provider [...]
--- OUTSIDE RECORDS SUMMARY | 2023-09-08 18:27 | XMS_ITS ---
Author Organization [facility] [place] Address [address] [place] [address] Care Team Providers Care Office Rental Clerk Name Role Phone None Reported, Pcp Primary Care Provider Unavail able Bariatrics Program Status:Enrolled (Active) Start date:08/03/2022 Enrollment date:08/03/2022 Current support & services provided:Pre-Op Related social determinants of health:Food Insecurity, Transportation Needs Continued Care and Services Coordination
--- OUTSIDE RECORDS SUMMARY | 2023-09-08 18:27 | XMS_ITS | Encounter Summary ---
Author Organization [facility] Address [address] [place] [id number] Care Team Providers Care Ceramics Machine Operator Name Role Phone None Reported, Pcp Primary Care Provider Unavail able Encounter Details Date Type Department Care Team (Late st Contact Info) Description 06/11/2023 8:00 AM CDT Telemedicine Department of Nutrition and Diabetes Education in [place], [place] [address] [place] [phone] Brandon Mendiola, FUR REPAIRER, C.N.P., D.N.P. [address] [place] [phone] Fam Aguilar RDN, LD [address] [place] [phone] Gastric Bypass Status Post Social History Tobacco Use Types Packs/Day Years Used Date Smoking Tobacco: Never Smokeless Tobacco: Never Alcohol Use Standard Drinks/Week Comments Never 0 (1 standard drink = 0.6 oz pur e alcohol) [facility] Utilities Answer Date Recorded In the past 12 months has [facility] [employer], gas, oil, or water [employer] threatened to shut off services in your [...] your living situation today? I have a [facility] place to live 03/03/2023 Sex and [...] What type of milk do you drink? [place]/Nut What is the name or type of [...] technology by Sebastian Aguilar RDN, LD in [facility] to patient in patient home. I introduced myself to the group and limits to confidentially were reviewed. documented in this encounter Plan of Treatment Not on file documented as of this encounter Visit Diagnoses Diagnosis Gastric Bypass Status Post documented in this encounter Additional Health Concerns Assessment Noted Time PHQ-9 Depression Total Score: 6 09/29/19 23 11:41 AM CDT documented as of this encounter Care Teams Ceramics Machine Operator Relationship Specialty Start Date End Date None Reported, Pcp PCP - General Family Medicine 04/03/23 documented as of this encounter
--- OUTSIDE RECORDS SUMMARY | 2023-09-08 18:27 | XMS_ITS ---
Author Organization [facility] Address [address] [place] [address] Care Team Providers Care French Binder Name Role Phone Unavailable Unavailable Unavailable Surgery Details Not on file Complications Check Surgery Details section. Procedure Estimated Blood Loss Check Surgery Details section. Procedure Findings Check Surgery Details section. Procedure Specimens Taken Check Surgery Details section.
--- OUTSIDE RECORDS SUMMARY | 2023-09-08 18:27 | XMS_ITS | Referral Summary ---
Author Organization [facility] Address [address] [place] [address] Care Team Providers Care Team Leader/Research Psychologist Name Role Phone None Reported, Pcp Primary Care Provider Unavail able Source Comments Patient records contain information from all sites at [facility]. For routine questions regarding patient records, call [phone] during business hours, M-F 8:00 AM - 5:00 PM Central Time. Record requests for emergency care only can be directed to [phone] at any time.[facility] Encounters Date Type Department Care Team Description 06/11/2023 8:00 AM CDT Telemedicine Department of Nutrition and Diabetes Education in [place], [place] [address] [place] [phone] Brandon Mendiola, EDELMIRA, C.N.P., D.N.P. Fam Aguilar, [...] In the past 12 months has e [employer], gas, oil, or water [employer] threatened to shut off services in your [...] living situation today? I have a [facility] place to live 03/03/2023 Sex and Gender Information Value Date Recorded Sex Assigned at Male 09/11/2022 7:49 AM CDT Gender Identity Male 09/11/2022 7:49 AM CDT Sexual Orientation Straight 09/11/2022 7: 49 AM CDT Last Filed Vital Signs Vital Sign Reading Time Taken Comments Blood Pressure 151/84 04/03/2023 8:15 PM MANAGER NEONATAL Pulse 58 04/03/2023 8:15 PM MANAGER NEONATAL Temperature 37 ??C (98.6 ??F) 04/03/2023 6:46 PM MANAGER NEONATAL Respiratory Rate 20 04/03/2023 6:46 PM MANAGER NEONATAL Oxygen Saturation 100% 04/03/2023 8:15 PM MANAGER NEONATAL Inhaled Oxygen Concentration - - Weight 122 kg (268 lb 15.4 oz) 06/11/2023 8:18 A M CDT Height 173 cm (5' 8.11) 06/11/2023 8:18 AM CDT Body Mass Index 40.76 06/11/2023 8:18 AM CDT Plan of Treatment Not on file Medical Devices Implanted Type Area K 12 Principal Device Identifier Shelf Expiration Date Model / Serial / Lot Clp May End Intnl Endo 5x11 - [id number] Implanted:Qt y: 1 on 03/03/2023 by Zeus Santana M.D. at [facility] Hardware e.g. pins/screws /rods N/A: Abdomen [employer] [id number] 10/22/2025 [id number] / / [id number] Advance Directives For more information, please contact: [phone] * Full Code (Latest Code Status on File) Date Activated Date Inactivated Comments 03/03/2023 12:13 PM 03/05/2023 4:14 PM Question Answer Comments Full Code: Discussed * Full Code Date Activated Date Inactivated Comments 03/03/2023 5:46 AM 03/03/2023 12:13 PM Question Answer Comments Full Code: Discussed Care Teams Team Leader/Research Psychologist Relationship Specialty Start Date End Date None Reported, Pcp PCP - General Family Medicine 04/03/23
== END 2023-09-01 07:06 | disposition home or self-care (01) ==
LOC: AMB 09-08 18:25
PROVIDERS: PCP Family Medicine; Visit Provider Family Medicine
DX: S69.92XA Unspecified injury of left wrist, hand and finger(s), initial encounter (principal); V47.0XXA Car driver injured in collision with fixed or stationary object in nontraffic accident, initial encounter; Y92.007 Garden or yard of unspecified non-institutional (private) residence as the place of occurrence of the external cause
CPT/HCPCS: A0425; A0427

== ENCOUNTER 2023-09-01 07:37 | Emergency (ER) | payer OTHER, SELFPAY ==
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
[2023-09-01 07:46] VITALS: BP 148/94; PULSE 65; RESP 20; TEMP 36.6; O2SAT 99; BMI 39.0
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
[2023-09-01 07:51] VITALS: O2SAT 99
[2023-09-01 07:52] VITALS: PULSE 63; O2SAT 99
--- OUTSIDE RECORDS SUMMARY | 2023-09-01 07:54 | XMS_ITS | Referral Summary ---
Author Organization [facility] Address [address] [place] [address] Care Team Providers Care Industrial Relations Director Name Role Phone None Reported, Pcp Primary Care Provider Unavail able Source Comments Patient records contain information from all sites at [facility]. For routine questions regarding patient records, call [phone] during business hours, M-F 8:00 AM - 5:00 PM Central Time. Record requests for emergency care only can be directed to [phone] at any time.[facility] Encounters Date Type Department Care Team Description 06/11/2023 8:00 AM CDT Telemedicine Department of Nutrition and Diabetes Education in [place], [place] [address] [place] [address] Brandon Mendiola, EDELMIRA, C.N.P., D.N.P. Fam Aguilar, RDN, LD Gastric Bypass Status Post from Last 3 Months Allergies No known [...] = 0.6 oz pur e alcohol) [facility] Utilities Answer Date Recorded In the past 12 months has e [employer], gas, oil, or water [employer] threatened to shut off services in your [...] your living situation today? I have a [facility] place to live 03/03/2023 Sex and Gender Information Value Date Recorded Sex Assigned at Male 09/11/2022 7:49 AM CDT Gender Identity Male 09/11/2022 7:49 AM CDT Sexual Orientation Straight 09/11/2022 7: 49 AM CDT Last Filed Vital Signs Vital Sign Reading Time Taken Comments Blood Pressure 151/84 04/03/2023 8:15 PM GREASER AND OILER Pulse 58 04/03/2023 8:15 PM GREASER AND OILER Temperature 37 ??C (98.6 ??F) 04/03/2023 6:46 PM GREASER AND OILER Respiratory Rate 20 04/03/2023 6:46 PM GREASER AND OILER Oxygen Saturation 100% 04/03/2023 8:15 PM GREASER AND OILER Inhaled Oxygen Concentration - - Weight 122 kg (268 lb 15.4 oz) 06/11/2023 8:18 A M CDT Height 173 cm (5' 8.11) 06/11/2023 8:18 AM CDT Body Mass Index 40.76 06/11/2023 8:18 AM CDT Plan of Treatment Upcoming Encounters Date Type Department Care Team (Latest Contact Info) Description 09/06/2023 3:30 PM CDT Clinical Communication Virtual Review in [place], [place] [address] [place] [address] 09/07/2023 4:30 PM CDT Telemedicine Division of Endocrinology in [place], [place] [address] [place] [phone] Monse Henao M.D. [address] [place] [phone] Medical Devices Implanted Type Area Hydroponics Worker Device Identifier Shelf Expiration Date Model / Serial / Lot Clp May End Intnl Endo 5x11 - [id number] Implanted:Qt y: 1 on 03/03/2023 by Zeus Santana M.D. at [facility] Hardware e.g. pins/screws /rods N/A: Abdomen Medtronic [id number] 10/22/2025 [id number] / / [id number] Advance Directives For more information, please contact: [phone] * Full Code (Latest Code Status on File) Date Activated Date Inactivated Comments 03/03/2023 12:13 PM 03/05/2023 4:14 PM Question Answer Comments Full Code: Discussed * Full Code Date Activated Date Inactivated Comments 03/03/2023 5:46 AM 03/03/2023 12:13 PM Question Answer Comments Full Code: Discussed Care Teams Industrial Relations Director Relationship Specialty Start Date End Date None Reported, Pcp PCP - General Family Medicine 04/03/23
--- OUTSIDE RECORDS SUMMARY | 2023-09-01 07:54 | XMS_ITS | Clinical Summary ---
Author Organization [facility] Address [address] [place] [address] Care Team Providers Care Rn Medical Inpatient Services Name Role Phone None Reported, Pcp Primary Care Provider Unavail able Source Comments Patient records contain information from all sites at [facility]. For routine questions regarding patient records, call [phone] during business hours, M-F 8:00 AM - 5:00 PM Central Time. Record requests for emergency care only can be directed to [phone] at any time.[facility] Allergies No known active allergies Medications Medication [...] Department of Nutrition and Diabetes Education in [place], [place] [address] [place] [address] Brandon Mendiola APRN, C.N.P., D.N.P. Fam Aguilar, RAMON, LD Gastric Bypass Status Post from Last 3 Months Family History Medical [...] In the past 12 months has e [employer], gas, oil, or water [employer] threatened to shut off services in your [...] your living situation today? I have a [facility] place to live 03/03/2023 Sex and Gender Information Value Date Recorded Sex Assigned at Male 09/11/2022 7:49 AM CDT Gender Identity Male 09/11/2022 7:49 AM CDT Sexual Orientation Straight 09/11/2022 7: 49 AM CDT Last Filed Vital Signs Vital Sign Reading Time Taken Comments Blood Pressure 151/84 04/03/2023 8:15 PM WOOD BORING MACHINE OPERATOR Pulse 58 04/03/2023 8:15 PM WOOD BORING MACHINE OPERATOR Temperature 37 ??C (98.6 ??F) 04/03/2023 6:46 PM WOOD BORING MACHINE OPERATOR Respiratory Rate 20 04/03/2023 6:46 PM WOOD BORING MACHINE OPERATOR Oxygen Saturation 100% 04/03/2023 8:15 PM WOOD BORING MACHINE OPERATOR Inhaled Oxygen Concentration - - Weight 122 kg (268 lb 15.4 oz) 06/11/2023 8:18 A M CDT Height 173 cm (5' 8.11) 06/11/2023 8:18 AM CDT Body Mass Index 40.76 06/11/2023 8:18 AM CDT Plan of Treatment Upcoming Encounters Date Type Department Care Team (Latest Contact Info) Description 09/06/2023 3:30 PM CDT Clinical Communication Virtual Review in [place], [place] 200 [place] [address] 09/07/2023 4:30 PM CDT Telemedicine Division of Endocrinology in [place], [place] [address] [place] [phone] Monse Henao M.D. [address] [place] [phone] Health Maintenance Due Date Last Done Comments Hearing Screening during Well Child Visit 2003 Hepatitis C Screening 2003 TB Screening during Well Child Visit 2003 Visit: Chronic Disease, age 18+ 2003 [...] 08/25/2021 17 year Well Child Check-Up 08/25/2022 COVID-19 Vaccine (24 season) 2022 07/28/2022 Office Visit for Blood Pressure Check / Re-check 12/12/2022 09/11/2022 Depression Screening (Annual PHQ-2) 02/22/2023 18 year Well Child Check-Up 08/26/2023 Well Child Check-Up (WCC) 08/26/2023 Influenza Vaccine (#1) 2023 01/03/2014 DTaP,Tdap,and Td Vaccines (5 - Td or [...] 10/09/2019, 09/24/2015 Medical Devices Implanted Type Area Sports Lawyer Device Identifier Shelf Expiration Date Model / Serial / Lot Clp Apr End Intnl Endo 5x11 - [id number] Implanted:Qt y: 1 on 03/03/2023 by Zeus Santana M.D. at [facility] Hardware e.g. pins/screws /rods N/A: Abdomen Medtronic [id number] 10/22/2025 [id number] / / [id number] Advance Directives For more information, please contact: [phone] * Full Code (Latest Code Status on File) Date Activated Date Inactivated Comments 03/03/2023 12:13 PM 03/05/2023 4:14 PM Question Answer Comments Full Code: Discussed * Full Code Date Activated Date Inactivated Comments 03/03/2023 5:46 AM 03/03/2023 12:13 PM Question Answer Comments Full Code: Discussed Care Teams Rn Medical Inpatient Services Relationship Specialty Start Date End Date None Reported, Pcp PCP - General Family Medicine 04/03/23
--- OUTSIDE RECORDS SUMMARY | 2023-09-01 07:54 | XMS_ITS ---
Author Organization [facility] Address [address] [place] [address] Care Team Providers Care Network Mgr Name Role Phone Unavailable Unavailable Unavailable Surgery Details Not on file Complications Check Surgery Details section. Procedure Estimated Blood Loss Check Surgery Details section. Procedure Findings Check Surgery Details section. Procedure Specimens Taken Check Surgery Details section.
--- OUTSIDE RECORDS SUMMARY | 2023-09-01 07:54 | XMS_ITS | Encounter Summary ---
Author Organization [facility] Address [address] [place] [address] Care Team Providers Care Rubber Attacher Name Role Phone None Reported, Pcp Primary Care Provider Unavail able Encounter Details Date Type Department Care Team (Late st Contact Info) Description 06/11/2023 8:00 AM CDT Telemedicine Department of Nutrition and Diabetes Education in [place], [place] [address] [place] [phone] Brandon Mendiola, TEMPLATE CLERK, C.N.P., D.N.P. [address] [place] [phone] Fam Aguilar RDN, LD [address] [place] [phone] Gastric Bypass Status Post Social History Tobacco Use Types Packs/Day Years Used Date Smoking Tobacco: Never Smokeless Tobacco: Never Alcohol Use Standard Drinks/Week Comments Never 0 (1 standard drink = 0.6 oz pur e alcohol) [facility] Utilities Answer Date Recorded In the past 12 months has [facility] [employer], gas, oil, or water [employer] threatened to shut off services in your [...] your living situation today? I have a [facility] place to live 03/03/2023 Sex and [...] What type of milk do you drink? [place]/Nut What is the name or type of [...] technology by Sebastian Aguilar RDN, LD in [facility] to patient in patient home. I introduced myself to the group and limits to confidentially were reviewed. documented in this encounter Plan of Treatment Upcoming Encounters Date Type Department Care Team (Latest Contact Info) Description 09/06/2023 3:30 PM CDT Clinical Communication Virtual Review in [address] [phone] 09/07/2023 4:30 PM CDT Telemedicine Division of Endocrinology in [address] [phone] Monse Henao M.D. [address] [place] [phone] documented as of this encounter Visit Diagnoses Diagnosis Gastric Bypass Status Post documented in this encounter Additional Health Concerns Assessment Noted Time PHQ-9 Depression Total Score: 6 09/29/19 23 11:41 AM CDT documented as of this encounter Care Teams Rubber Attacher Relationship Specialty Start Date End Date None Reported, Pcp PCP - General Family Medicine 04/03/23 documented as of this encounter
--- OUTSIDE RECORDS SUMMARY | 2023-09-01 07:54 | XMS_ITS | Referral Summary ---
Author Organization [facility] Address [address] [place] [address] Care Team Providers Care Art Supervisor Name Role Phone Unavailable Primary Care Provider [...]
--- OUTSIDE RECORDS SUMMARY | 2023-09-01 07:54 | XMS_ITS ---
Author Organization [facility] Address [address] [place] [address] Care Team Providers Care Toys Inspector Name Role Phone None Reported, Pcp Primary Care Provider Unavail able Bariatrics Program Status:Enrolled (Active) Start date:08/03/2022 Enrollment date:08/03/2022 Current support & services provided:Pre-Op Related social determinants of health:Food Insecurity, Transportation Needs Continued Care and Services Coordination
--- OUTSIDE RECORDS SUMMARY | 2023-09-01 07:54 | XMS_ITS | Clinical Summary ---
Author Organization [facility] Address [address] [place] [address] Care Team Providers Care Communications Department Chair Name Role Phone Unavailable Primary Care Provider [...] SCREENING 09/25/2021 COVID-19 Vaccine ( season) 2022 PHQ-2 (once per calendar year) 2023 06/16/2021 INFLUENZA VACCINE (#1) 2023 01/03/2014 DTAP/TDAP/TD IMMUNIZATION (5 - Td or Tdap) [...]
[2023-09-01 08:00] VITALS: PULSE 76; O2SAT 100
[2023-09-01 08:02] VITALS: BP 138/100; PULSE 72; RESP 18; O2SAT 99
[2023-09-01 08:11] LABS: Basophils Absolute Auto 0.06 K/uL (0.00-0.30); Basophils Percent Auto 0.7 % (0.0-3.0); Eosinophils Absolute Auto 0.13 K/uL (0.00-0.50); Eosinophils Percent Auto 1.4 % (0.0-7.0); Hematocrit 45.9 % (37.0-53.0); Hemoglobin* 15.4 gm/dL (13.5-17.5); Immature Granulocytes Abs Auto 0.01 K/uL (0.00-0.30); Immature Granulocytes Pct Auto 0.1 %; Lymphocytes Absolute Auto 3.15 K/uL (0.90-2.90); Lymphocytes Percent Auto 34.4 % (20-44); Mean Corpuscular HGB Conc 34 gm/dL (32-36); Mean Corpuscular Hemoglobin 30 pg (26-34); Mean Corpuscular Volume 90 fL (80-100); Monocytes Percent Auto 4.3 % (0.0-11.0); Neutrophils Absolute Auto 5.41 K/uL (1.7-7.0); Neutrophils Percent Auto 59.1 % (42.0-72.0); Platelet Count* 294 K/uL (140-440); White Blood Count* 9.15 K/uL (4.50-11.00)
[2023-09-01 08:18] LABS: Slide Review Reflex No
[2023-09-01 08:21] LABS: Chloride* 105 mmol/L (96-114); Potassium* 3.5 mmol/L (3.6-5.1); Sodium* 142 mmol/L (135-149)
[2023-09-01 08:23] LABS: Creatinine* 0.7 mg/dL (0.6-1.2); Est. Creatinine Clearance* 158.69; Estimated Glomerular Filt Rate 136 ml/min
[2023-09-01 08:24] LABS: Anion Gap 9 mEq/L (7-15); Blood Urea Nitrogen* 12 mg/dL (5-24); Carbon Dioxide* 28 mmol/L (20-32); Glucose* 100 mg/dL (60-115)
[2023-09-01] MEDS: 0.9 % SODIUM CHLORIDE 500 ML 500 ML IV (08:28)
[2023-09-01] MEDS: TETANUS/DIPHTH/PERTUSSIS 0.5 ML SYRINGE IM (09:00)
== END 2023-09-01 09:18 | disposition home or self-care (01) ==
PROVIDERS: Emergency Provider Family Medicine; PCP Family Medicine
DX: S60.812A Abrasion of left wrist, initial encounter (principal); R10.9 Unspecified abdominal pain
CPT/HCPCS: 29125; 36415; 73110; 74176; 80048; 85025; 90471; 90715; 94761; 99284; 99285; J7030

== ENCOUNTER 2024-02-11 11:15 | Outpatient (RCR) | payer MEDICAID, OTHER, BC, SELFPAY | END 2024-02-11 12:08 | disposition home or self-care (01) | PROVIDERS: PCP Family Medicine; Visit Provider Orthopaedic Surgery Sports Medicine | DX: Z51.89 Encounter for other specified aftercare (principal); S83.412A Sprain of medial collateral ligament of left knee, initial encounter; Z98.890 Other specified postprocedural states; M25.562 Pain in left knee; M62.81 Muscle weakness (generalized); R26.9 Unspecified abnormalities of gait and mobility; Z74.09 Other reduced mobility | CPT/HCPCS: 97110; 97116; 97140; 97161 ==